=== PATIENT | female | born 1950 | race Hispanic/Latino ===

== ENCOUNTER 2016-04-20 08:42 | Outpatient (CLI) | payer BC ==
--- NOTE | 2016-04-20 14:48 | Magnetic Resonance Report ---
MRI OF THE BRAIN WITHOUT CONTRAST: HISTORY: Malignant neoplasm breast PROCEDURE: Multiplanar, multisequence MR imaging of the brain without IV contrast was performed. Please note the patient did not receive IV gadolinium secondary to a GFR of 28. FINDINGS: Mild nonspecific chronic white matter changes are identified and appear stable since 06/09/15 exam. No evidence for acute ischemia, hemorrhage or mass. No extra axial fluid collection. 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 No large chronic infarct. The midline structures are central. The basal cisterns are patent. Normal ventricular size. The orbital cavities and sella turcica demonstrate no abnormality. The visualized paranasal sinuses and mastoid air cells are well aerated. IMPRESSION: Mild nonspecific chronic white matter changes which appear stable since 06/09/15. Please note this exam is slightly limited without IV gadolinium due to poor renal function. Detection of metastatic disease is limited. Having said that, there is a low suspicion for metastatic disease to the brain on this noncontrast exam.
--- NOTE | 2016-04-23 12:39 | Cat Scan Report ---
CT CHEST, ABDOMEN, PELVIS WITH CONTRAST: HISTORY: Breast cancer. Transverse images are obtained with coronal and sagittal reformatted images. Comparison is made to prior chest CT in January 2015. There is an Lxyaeq-S-Tbqi present. There is marked skin thickening and subcutaneous thickening of the right breast with a central mass. There is focal thickening in the right axilla adjacent to surgical clips. There is asymmetric thickening of the right pectoralis major muscle. There is significant calcification of the coronary vasculature. There is a pulmonary focal scar configuration on the right. There is no hilar or mediastinal adenopathy. No pulmonary nodules and no pleural changes. Compared to 2015 the apical scar was not present and the right breast changes, the pectoralis muscle and axilla are new. Sections carried through the abdomen and pelvis demonstrate an apical cyst in the right kidney. The gallbladder has been removed. The abdominal and retroperitoneal structures are otherwise unremarkable. The partially opacified bowel and mesentery appear normal. No lytic or blastic lesions identified in the bony structures. Significant degenerative changes are identified in the lower 2 vertebrae and discs of the lumbar spine. IMPRESSIONS: 1. Interval findings of the right breast, chest wall and axilla most likely all relate to the patient's various therapies. I have no post-treatment exams for comparison. 2. No findings to indicate metastatic disease to the chest, abdomen or pelvis. 3. Unexplained right apical pulmonary scar. This should be followed with CT scan in 4-6 months. 4. Degenerative lumbar spine changes.
== END 2016-04-20 08:43 | disposition home or self-care (01) ==
LOC: SPVIMAG 08:42
PROVIDERS: ATTEND Internal Medicine Hematology & Oncology
DX: C50.919 Malignant neoplasm of unspecified site of unspecified female breast (principal); M47.896 Other spondylosis, lumbar region; Z90.49 Acquired absence of other specified parts of digestive tract
CPT/HCPCS: 70551; 71260; 74177; Q9967

== ENCOUNTER 2016-07-26 10:12 | Outpatient (CLI) | payer BC ==
--- NOTE | 2016-07-26 12:11 | Mammography Report ---
BONE DEXA:07/26/16 10:12:00 CLINICAL: Postmenopausal. No comparison. TECHNIQUE: Two site bone DEXA performed on an Hologic scanner. FINDINGS: The average BMD of the lumbar spine L1-L4 is 1.116g/cm squared with a T-score of +0.6 and a Z-score of +2.3. The average BMD of the left hip is 1.064g/cm squared with a T-score of +1.0 and a Z-score of +2.2. IMPRESSION: WHO classification: Normal with average fracture risk based on spine and left hip measurements. RECOMMENDATION: Clinical correlation and routine screening. DEFINITIONS: BMD = Bone Mineral Density T-score = BMD related to mean peak bone mass of young adult (mean expressed in Standard Deviation) Z-score = Age matched BMD expressed in SD World Health Organization (WHO) Diagnostic Criteria Normal T-score > -1 SD Osteopenia T-score between -1 and -2.4 SD Osteoporosis T-score -2.5 SD or below NOTE: BMD is not the only risk factor for fracture. One should also consider factors such as the patient's age, risk of falling, previous osteoporotic fracture, family history of osteoporotic fractures, current smoker, and low body weight. Z-scores are not calculated if >80 years of age.
== END 2016-07-26 10:13 | disposition home or self-care (01) ==
LOC: SPVWC 10:12
PROVIDERS: ATTEND Internal Medicine Hematology & Oncology
DX: M89.9 Disorder of bone, unspecified (principal); Z78.0 Asymptomatic menopausal state
CPT/HCPCS: 77080

== ENCOUNTER 2017-08-05 07:33 | Day surgery (SDC) | payer BC ==
[2017-08-05] MEDS ORDERED: SUBLIMAZE IV NR (08:36)
[2017-08-05] MEDS ORDERED: VERSED IV NR (08:36)
[2017-08-05 08:44] LABS: Basophils # (Auto) 0.1 K/mm3 (0.0-0.1); Basophils % (Auto) 0.9 % (0.0-1.8); Eosinophils # (Auto) 0.5 K/mm3 (0.0-0.4); Eosinophils % (Auto) 6.3 % (0.0-4.3); Hematocrit 27.6 % (30.3-42.9); Hemoglobin 9.2 gm/dl (10.1-14.3); Lymphocytes # (Auto) 2.5 K/mm3 (1.2-5.4); Lymphocytes % (Auto) 32.4 % (13.4-35.0); Mean Corpuscular HGB Conc 33 % (30-34); Mean Corpuscular Hemoglobin 36 pg (28-32); Mean Corpuscular Volume 109 fl (79-97); Monocytes # (Auto) 0.6 K/mm3 (0.0-0.8); Monocytes % (Auto) 8.2 % (0.0-7.3); Platelet Count 119 K/mm3 (140-440); Red Blood Count 2.54 M/mm3 (3.65-5.03)
[2017-08-05 09:15] LABS: INR 1.09 (0.87-1.13)
[2017-08-05 09:16] LABS: Partial Thromboplastin Time 48.5 Sec. (24.2-36.6)
[2017-08-05] MEDS ORDERED: NACL 0.9% 500 ML 0 ML ONE (09:20)
[2017-08-05] MEDS ORDERED: FLUSH HEPARIN IV ONE (12:05)
[2017-08-05] MEDS ORDERED: NORCO 5/325 PO ONE (12:18)
[2017-08-05 13:09] VITALS: BP 129/71
--- NOTE | 2017-08-05 14:47 | Cat Scan Report ---
CT BIOPSY BONE MARROW: HISTORY: Pancytopenia, breast cancer. DESCRIPTION OF PROCEDURE: Informed consent was obtained. Sterile technique was utilized. Conscious sedation was accomplished with Versed and fentanyl. The patient was sedated for 15 minutes. Independent cardiorespiratory monitoring by RN. Intra-observer time of [address] guidance, an introducer needle was advanced into the right posterior iliac bone. 4 aspirations and one 11-gauge bone core was obtained. Pathology was present to handle the sample. The patient tolerated the procedure without difficulty. IMPRESSION: Successful CT-guided bone marrow biopsy.
== END 2017-08-05 13:25 | disposition home or self-care (01) ==
LOC: CATHLABREC 07:33 → EDSTATUS 08:30 → CATHLABREC 13:25
PROVIDERS: ATTEND Internal Medicine Hematology & Oncology
DX: C91.10 Chronic lymphocytic leukemia of B-cell type not having achieved remission (principal); Z79.01 Long term (current) use of anticoagulants; Z79.899 Other long term (current) drug therapy
CPT/HCPCS: 36415; 38222; 82962; 85025; 85097; 85610; 85730; 88184; 88185; 88230; 88291; 88305; J1642; J2250; J3010; 38220; 85007; 88161; 88311; 88313; J7040

== ENCOUNTER 2017-08-31 11:07 | Inpatient (IN) | payer BC ==
[2017-08-31 12:58] LABS: Hematocrit 34.5 % (30.3-42.9); Hemoglobin 11.6 gm/dl (10.1-14.3); Mean Corpuscular HGB Conc 34 % (30-34); Mean Corpuscular Hemoglobin 36 pg (28-32); Mean Corpuscular Volume 106 fl (79-97); Red Blood Count 3.24 M/mm3 (3.65-5.03); Red Cell Distribution Width 17.2 % (13.2-15.2)
[2017-08-31 12:59] LABS: Platelet Count 81 K/mm3 (140-440)
[2017-08-31 13:27] LABS: Albumin 3.9 g/dL (3.9-5); Calcium 9.5 mg/dL (8.4-10.2)
[2017-08-31 13:48] LABS: Basophils % (Manual) 0 % (0.0-1.8); Myelocytes # (Manual) 0.1 K/mm3; Total Cells Counted 100
[2017-08-31 13:49] LABS: Platelet Estimate Appears Decreased
[2017-08-31 14:23] LABS: INR 1.05 (0.87-1.13)
[2017-08-31 14:24] LABS: Partial Thromboplastin Time 49.7 Sec. (24.2-36.6)
--- NOTE | 2017-08-31 14:43 | Emergency Department Report ---
ED General Adult HPI - General Chief complaint: Altered Mental Status Stated complaint: PORT REMOVAL Time Seen by Provider: 08/31/17 13:46 Source: patient Mode of arrival: Wheelchair Limitations: No Limitations - History of Present Illness Initial comments: This is a 66 year old female that has a previous history of breast cancer. She is an insulin-dependent diabetic/type II. She was recently seen at [facility]. She is said to have a history of leukemia. She had a spinal tap yesterday and was given intrathecal chemotherapy. She stated that after she went home and even on the ride home she developed nausea and vomiting. She states she vomited about 7 times since the chemotherapy. This morning at approximately 9 AM the patient was "talking out of her head". At this point, she is giving a detailed history of her oncological problems. She seems to have much better recollection of events that her who is here with her. She is currently coherent and certainly not altered. She is not complaining of headache. She denies neck pain and back.. She denies fever or chills. The patient states that her port access which appears to be a 2 port John needle set up was an invertedly left in. She and her called [facility] today. Her stated that she was told to go to "the nearest emergency department". I do not think they discuss the episode of confusion at 9 AM this morning. -: Gradual, minutes(s) - Related Data Home Medications Medication Instructions Recorded Confirmed Last Taken Allopurinol [Zyloprim] 300 mg PO QDAY 12/16/14 08/05/17 08/04/17 300 Anastrozole (Nf) [Arimidex (Nf)] 1 mg PO QHS 12/16/14 08/05/17 08/04/17 Aspirin EC [Aspirin Enteric Coated 81 mg PO QDAY 12/16/14 08/05/17 08/04/17 TAB] 81 AtorvaSTATin [Lipitor] 40 mg PO QPM 12/16/14 08/05/17 08/04/17 Glimepiride [Amaryl] 4 mg PO QAM 12/16/14 03/06/15 08/05/17 09:01 4 Insulin Lispro Prot/Lispro 20 unit SQ BID 12/16/14 08/05/17 08/04/17 [HumaLOG Mix 75/25 Vial] 20 Metoprolol Xl [Metoprolol 50 mg PO BID 12/16/14 08/05/17 08/04/17 SUCCINATE ER TAB] 50 Oxybutynin Chloride [Oxybutynin 10 mg PO QDAY 12/16/14 08/05/17 08/04/17 Chloride ER] Pantoprazole [Protonix TAB] 40 mg PO QDAY PRN 12/16/14 08/05/17 08/01/17 Allergies Allergy/AdvReac Type Severity Reaction Status Date / Time No Known Allergies Allergy Verified 02/14/15 14:01 ED Review of Systems ROS: Stated complaint: PORT REMOVAL Other details as noted in HPI Constitutional: denies: chills, fever Eyes: denies: eye pain, eye discharge, vision change ENT: denies: ear pain, throat pain Respiratory: denies: cough, shortness of breath, wheezing Cardiovascular: denies: chest pain, palpitations Endocrine: no symptoms reported Gastrointestinal: denies: abdominal pain, nausea, diarrhea Genitourinary: denies: urgency, dysuria, discharge Musculoskeletal: denies: back pain, joint swelling, arthralgia Skin: denies: rash, lesions Neurological: other (transient alteration of consciousness). denies: headache, weakness, paresthesias Psychiatric: denies: anxiety, depression Hematological/Lymphatic: denies: easy bleeding, easy bruising ED Past Medical Hx - Past Medical History Hx Hypertension: Yes Hx CVA: Yes Hx Heart Attack/AMI: No Hx Diabetes: Yes Hx GERD: Yes Hx Renal Disease: Yes (CKD STAGE 3) Hx Arthritis: Yes Hx Asthma: Yes (LAST ATTACK AT 24YRS OLD) Additional medical history: breast cancer - Surgical History Hx Cholecystectomy: Yes (2004) Hx Breast Surgery: Yes (ELIOT EXCISION OF CYST, RT BREAST Bx 09/2014, PART MAST. ) - Social History Smoking Status: Never Smoker Substance Use Type: None - Medications Home Medications: Home Medications Medication Instructions Recorded Confirmed Last Taken Type Allopurinol [Zyloprim] 300 mg PO QDAY 12/16/14 08/05/17 08/04/17 History 300 Anastrozole (Nf) [Arimidex (Nf)] 1 mg PO QHS 12/16/14 08/05/17 08/04/17 History Aspirin EC [Aspirin Enteric Coated 81 mg PO QDAY 12/16/14 08/05/17 08/04/17 History TAB] 81 AtorvaSTATin [Lipitor] 40 mg PO QPM 12/16/14 08/05/17 08/04/17 History Glimepiride [Amaryl] 4 mg PO QAM 12/16/14 03/06/15 08/05/17 09:01 History 4 Insulin Lispro Prot/Lispro 20 unit SQ BID 12/16/14 08/05/17 08/04/17 History [HumaLOG Mix 75/25 Vial] 20 Metoprolol Xl [Metoprolol 50 mg PO BID 12/16/14 08/05/17 08/04/17 History SUCCINATE ER TAB] 50 Oxybutynin Chloride [Oxybutynin 10 mg PO QDAY 12/16/14 08/05/17 08/04/17 History Chloride ER] Pantoprazole [Protonix TAB] 40 mg PO QDAY PRN 12/16/14 08/05/17 08/01/17 History ED Physical Exam - General Limitations: No Limitations General appearance: alert, in no apparent distress, obese - Head Head exam: Present: atraumatic, normocephalic - Eye Eye exam: Present: normal appearance. Absent: scleral icterus - ENT ENT exam: Present: mucous membranes moist - Neck Neck exam: Present: normal inspection. Absent: tenderness, meningismus - Respiratory Respiratory exam: Present: normal lung sounds bilaterally. Absent: respiratory distress - Cardiovascular Cardiovascular Exam: Present: regular rate, normal rhythm. Absent: systolic murmur, diastolic murmur, rubs, gallop - GI/Abdominal GI/Abdominal exam: Present: soft, normal bowel sounds. Absent: distended, tenderness, guarding, rebound, rigid - Extremities Exam Extremities exam: Present: normal inspection, normal capillary refill. Absent: tenderness, calf tenderness - Back Exam Back exam: Present: normal inspection. Absent: tenderness, CVA tenderness (R), CVA tenderness (L), paraspinal tenderness, vertebral tenderness - Neurological Exam Neurological exam: Present: alert, oriented X3, CN II-XII intact, other (NIH stroke score is 0). Absent: motor sensory deficit - Psychiatric Psychiatric exam: Present: normal affect, normal mood - Skin Skin exam: Present: warm, dry, intact, normal color. Absent: rash ED Course Vital Signs 08/31/17 08/31/17 08/31/17 11:39 13:30 14:00 Temperature 99.6 F Pulse Rate 76 77 Respiratory 16 13 15 Rate Blood Pressure 136/73 165/91 Blood Pressure 160/92 [Left] O2 Sat by Pulse 93 96 96 Oximetry 08/31/17 08/31/17 08/31/17 15:26 16:00 16:30 Temperature Pulse Rate 81 72 84 Respiratory 12 16 Rate Blood Pressure 174/98 161/81 154/98 Blood Pressure [Left] O2 Sat by Pulse 95 94 Oximetry 08/31/17 08/31/17 08/31/17 17:00 17:30 18:00 Temperature 98.6 F Pulse Rate 75 72 69 Respiratory 11 L 15 18 Rate Blood Pressure 156/103 160/87 155/85 Blood Pressure [Left] O2 Sat by Pulse 95 94 95 Oximetry 08/31/17 18:31 Temperature Pulse Rate 75 Respiratory 18 Rate Blood Pressure 148/88 Blood Pressure [Left] O2 Sat by Pulse 98 Oximetry - Reevaluation(s) Reevaluation #1: The patient had a transient alteration of awareness this a.m. Dr. Ji has now seen and admitted the patient. Prior I spoke to the patient's oncologist at [facility] Dr. Mcgrath. She stated that she is not concerned about the John needle. She agreed with the administration of antibiotics as I selected. We reviewed the elevated lactic acid level. She stated that that may be secondary to the leukemia. She tolerated that patient's last platelet count was 89,000. She suggested that the patient might be able to go home after antibiotics. I do not think that the patient has meningitis or a complication of her spinal injection at least that is completely non-apparent at this juncture. However, with this lactic acid level and a transient alteration of consciousness, I told her that we would admit the patient. Supplementally the patient had high O Danae which I did supplement. She is clinically stable in the emergency department. There is no signs of a stroke syndrome nor complications of spinal tap at this juncture. As above she has very been admitted by Dr. Ji for further care and evaluation. 08/31/17 18:47 08/31/17 18:51 08/31/17 18:58 In addition, the patient is not currently suspected of a stroke syndrome. She is not a candidate for tPA for a plethora of reasons. She will not be given aspirin due to her thrombocytopenia and recent spinal tap. ED Medical Decision Making - Lab Data Result diagrams: 08/31/17 12:46 08/31/17 12:46 Laboratory Results - last 24 hr 08/31/1718 08/31/17 11:46 12:46 12:46 WBC 9.2 RBC 3.24 L Hgb 11.6 Hct 34.5 MCV 106 H MCH 36 H MCHC 34 RDW 17.2 H Plt Count 81 L Add Manual Diff Complete Total Counted 100 Seg Neuts % (Manual) 52.0 Band Neutrophils % 0 Lymphocytes % (Manual) 40.0 H Reactive Lymphs % (Man) 0 Monocytes % (Manual) 1.0 Eosinophils % (Manual) 6.0 H Basophils % (Manual) 0 Metamyelocytes % 0 Myelocytes % 1.0 Promyelocytes % 0 Blast Cells % 0 Nucleated RBC % 1.0 H Seg Neutrophils # Man 4.8 Band Neutrophils # 0.0 Lymphocytes # (Manual) 3.7 Abs React Lymphs (Man) 0.0 Monocytes # (Manual) 0.1 Eosinophils # (Manual) 0.6 H Basophils # (Manual) 0.0 Metamyelocytes # 0.0 Myelocytes # 0.1 Promyelocytes # 0.0 Blast Cells # 0.0 WBC Morphology Not Reportable Hypersegmented Neuts Not Reportable Hyposegmented Neuts Not Reportable Hypogranular Neuts Not Reportable Smudge Cells Not Reportable Toxic Granulation Not Reportable Toxic Vacuolation Not Reportable Dohle Bodies Not Reportable Pelger-Huet Anomaly Not Reportable Tiffany Rods Not Reportable Platelet Estimate Appears decreased Clumped Platelets Not Reportable Plt Clumps, EDTA Not Reportable Large Platelets Not Reportable Giant Platelets Not Reportable Platelet Satelliting Not Reportable Plt Morphology Comment Not Reportable RBC Morphology Not Reportable Dimorphic RBCs Not Reportable Polychromasia Not Reportable Hypochromasia Not Reportable Poikilocytosis Not Reportable Anisocytosis Not Reportable Microcytosis Not Reportable Macrocytosis Not Reportable Spherocytes Not Reportable Pappenheimer Bodies Not Reportable Sickle Cells Not Reportable Target Cells Not Reportable Tear Drop Cells Not Reportable Ovalocytes Not Reportable Helmet Cells Not Reportable [place] Bodies Not Reportable [place] Rings Not Reportable [place] Cells Not Reportable Bite Cells Not Reportable Crenated Cell Not Reportable Elliptocytes Not Reportable Acanthocytes (Spur) Not Reportable Rouleaux Not Reportable Hemoglobin C Crystals Not Reportable Schistocytes Not Reportable Malaria parasites Not Reportable Albert Bodies Not Reportable Hem Pathologist Commnt No PT INR APTT Sodium 143 Potassium 3.8 Chloride 101.2 Carbon Dioxide 24 Anion Gap 22 BUN 30 H Creatinine 1.1 Estimated GFR 50 BUN/Creatinine Ratio 27 Glucose 150 H POC Glucose 146 H Calcium 9.5 Magnesium Total Bilirubin 0.60 AST 37 ALT 17 Alkaline Phosphatase 65 Troponin T NT-Pro-B Natriuret Pep Total Protein 7.0 Albumin 3.9 Albumin/Globulin Ratio 1.3 08/31/17 08/31/17 Unknown Unknown WBC RBC Hgb Hct MCV MCH MCHC RDW Plt Count Add Manual Diff Total Counted Seg Neuts % (Manual) Band Neutrophils % Lymphocytes % (Manual) Reactive Lymphs % (Man) Monocytes % (Manual) Eosinophils % (Manual) Basophils % (Manual) Metamyelocytes % Myelocytes % Promyelocytes % Blast Cells % Nucleated RBC % Seg Neutrophils # Man Band Neutrophils # Lymphocytes # (Manual) Abs React Lymphs (Man) Monocytes # (Manual) Eosinophils # (Manual) Basophils # (Manual) Metamyelocytes # Myelocytes # Promyelocytes # Blast Cells # WBC Morphology Hypersegmented Neuts Hyposegmented Neuts Hypogranular Neuts Smudge Cells Toxic Granulation Toxic Vacuolation Dohle Bodies Pelger-Huet Anomaly Tiffany Rods Platelet Estimate Clumped Platelets Plt Clumps, EDTA Large Platelets Giant Platelets Platelet Satelliting Plt Morphology Comment RBC Morphology Dimorphic RBCs Polychromasia Hypochromasia Poikilocytosis Anisocytosis Microcytosis Macrocytosis Spherocytes Pappenheimer Bodies Sickle Cells Target Cells Tear Drop Cells Ovalocytes Helmet Cells Francis[place] Bodies [place] Rings [place] Cells Bite Cells Crenated Cell Elliptocytes Acanthocytes (Spur) Rouleaux Hemoglobin C Crystals Schistocytes Malaria parasites Albert Bodies Hem Pathologist Commnt PT 14.2 INR 1.05 APTT 49.7 H Sodium Potassium Chloride Carbon Dioxide Anion Gap BUN Creatinine Estimated GFR BUN/Creatinine Ratio Glucose POC Glucose Calcium Magnesium 1.10 L Total Bilirubin AST ALT Alkaline Phosphatase Troponin T < 0.010 NT-Pro-B Natriuret Pep 248.3 Total Protein Albumin Albumin/Globulin Ratio - Radiology Data interpreted by me: Chest x-ray shows the John needle and the port. I see no acute process. Critical care attestation.: If time is entered above; I have spent that time in minutes in the direct care of this critically ill patient, excluding procedure time. ED Disposition Clinical Impression: Transient alteration of awareness, Elevated lactic acid level, Thrombocytopenia , Lumbar puncture within last 24 hours, Hypomagnesemia, Port catheter in place Leukemia Qualifiers: Leukemia type: unspecified Leukemia Active/Remission status: without remission Qualified Code(s): C95.90 - Leukemia, unspecified not having achieved remission Breast cancer Qualifiers: Breast location: unspecified site of breast Laterality: right Qualified Code(s) : C50.911 - Malignant neoplasm of unspecified site of right female breast Disposition: OP ADMIT IP TO THIS HOSP Is pt being admited?: Yes Does the pt Need Aspirin: No (hold secondary to thrombocytopenia) Condition: Stable Referrals: KEVAN NAVARRETE MD [Primary Care Provider] - 3-5 Days
[2017-08-31] MEDS ORDERED: NACL 0.9% 1000 ML 1,000 ML IV ONE (14:54)
[2017-08-31] MEDS ORDERED: VANCOMYCIN PHARMACY TO DOSE IV SCH (15:00)
[2017-08-31] MEDS ORDERED: MAGNESIUM SULFATE 2GM/50ML 2 GM/50 ML BAG IV ONE (15:05)
[2017-08-31] MEDS ORDERED: NORMODYNE IV ONE ×2 (15:18→15:19)
[2017-08-31] MEDS ORDERED: VANCOMYCIN 2,000 MG in NACL 0.9% 500 ML 500 ML IV ONE (15:30)
[2017-08-31] MEDS ORDERED: MAXIPIME 2 GM in NACL 0.9% 20 ML IV ONE (15:30)
[2017-08-31 17:11] LABS: Bacteria,Urine 3+ /HPF (Negative); Bilirubin,Urine NEG (Negative); Blood,Urine MOD (Negative); Color,Urine Yellow (Yellow); Mucus,Urine FEW /HPF; Protein,Urine <15 mg/dL mg/dL (Negative); Urobilinogen,Urine < 2.0 mg/dL (<2.0)
--- NOTE | 2017-08-31 17:30 | History and Physical Report ---
History of Present Illness Chief complaint: she is confused History of present illness: 66 YO Female with Breast Cancer, DM, CVA, OA, Asthma, Leukemia S/P Intrathecal Chemotherapy presents to ED for evaluation. Pt is confused and unable to provide detailed history. Pt history provided by who is at bedside during exam and interview. Pt states that patient has experienced nausea , and multiple episodes of vomiting over the past 3 days, as well as "talking out of her head" which began at 0900 hrs. Pt seen and evaluated in ED and found to have Encephalopathy, SIRS. Pt treated with empiric antibiotics. Oncology service at [facility] notified but decline transfer. Oncology service consulted in ED. Pt admitted to medical floor. Past History Past Medical History: arthritis, cancer, diabetes, GERD, hypertension, hyperlipidemia, stroke Past Surgical History: mastectomy, Other (breast biopsy) Social history: , lives with family Family history: diabetes, hypertension Medications and Allergies Allergies Allergy/AdvReac Type Severity Reaction Status Date / Time No Known Allergies Allergy Verified 02/14/15 14:01 Home Medications Medication Instructions Recorded Confirmed Last Taken Type Allopurinol [Zyloprim] 300 mg PO QDAY 12/16/14 08/31/17 08/04/17 History 300 Anastrozole (Nf) [Arimidex (Nf)] 1 mg PO QHS 12/16/14 08/31/17 08/04/17 History Aspirin EC [Aspirin Enteric Coated 81 mg PO QDAY 12/16/14 08/31/17 08/04/17 History TAB] 81 AtorvaSTATin [Lipitor] 40 mg PO QPM 12/16/14 08/31/17 08/04/17 History Glimepiride [Amaryl] 4 mg PO QAM 12/16/14 08/31/17 08/05/17 09:01 History 4 Insulin Lispro Prot/Lispro 42 unit SQ BID 12/16/14 08/31/17 08/04/17 History [HumaLOG Mix 75/25 Vial] 20 Metoprolol Xl [Metoprolol 50 mg PO BID 12/16/14 08/31/17 08/04/17 History SUCCINATE ER TAB] 50 Oxybutynin Chloride [Oxybutynin 10 mg PO QDAY 12/16/14 08/31/17 08/04/17 History Chloride ER] Pantoprazole [Protonix TAB] 40 mg PO QDAY PRN 12/16/14 08/31/17 08/01/17 History Furosemide [Lasix] 20 mg PO QDAY 08/31/17 08/31/17 Unknown History Montelukast [Singulair] 10 mg PO QPM 08/31/17 08/31/17 Unknown History Valsartan/Hydrochlorothiazide 1 each PO DAILY 08/31/17 08/31/17 Unknown History [Valsartan-Hctz 160-12.5 mg Tab] metFORMIN [Glucophage] 500 mg PO BID 08/31/17 08/31/17 Unknown History Active Meds: Active Medications Vancomycin HCl 2,000 mg/ (Sodium Chloride) 520 mls @ 250 mls/hr IV ONCE ONE Stop: 08/31/17 17:34 Last Admin: 08/31/17 17:16 Dose: 250 mls/hr Vancomycin HCl 1,500 mg/ (Sodium Chloride) 515 mls @ 333.333 mls/hr IV Q12H JEREMÍAS Vancomycin HCl (Vancomycin Pharmacy To Dose) 1 each IV PKCONSULT JEREMÍAS; Protocol Review of Systems Constitutional: weakness, lethargy, no weight loss, no weight gain, no fever, no chills Ears, nose, mouth and throat: no ear pain, no ear discharge, no tinnitis, no decreased hearing, no nose pain, no nasal congestion Breasts: no change in shape, no swelling, no mass Cardiovascular: no chest pain, no orthopnea, no palpitations, no edema, no syncope Respiratory: no cough, no cough with sputum, no excessive sputum, no hemoptysis Gastrointestinal: nausea, vomiting, no abdominal pain, no constipation, no change in bowel habits, no hematemesis Genitourinary Female: no pelvic pain, no flank pain, no dysuria, no urinary frequency, no urgency Rectal: no pain, no incontinence, no bleeding Musculoskeletal: no neck pain, no shooting arm pain, no arm numbness/tingling, no low back pain, no shooting leg pain Integumentary: no rash, no pruritis, no redness, no sores, no wounds Neurological: no paralysis, no weakness, no parathesias, no numbness, no tingling, no seizures Psychiatric: no anxiety, no memory loss, no change in sleep habits, no sleep disturbances, no insomnia, no hypersomnia Endocrine: no cold intolerance, no heat intolerance, no polyphagia, no excessive thirst, no polydipsia, no polyuria Hematologic/Lymphatic: no easy bruising, no easy bleeding, no lymphadenopathy, no lymphedema Allergic/Immunologic: no urticaria, no allergic rhinitis, no wheezing, no persistent infections, no anaphylaxis, no angioedema Exam - Constitutional Vitals: Temp Pulse Resp BP Pulse Ox 99.6 F 84 16 154/98 94 08/31/17 11:39 08/31/17 16:30 08/31/17 16:30 08/31/17 16:30 08/31/17 16:30 General appearance: Present: mild distress, obese - EENT Eyes: Present: PERRL ENT: hearing intact, clear oral mucosa - Neck Neck: Present: supple, normal ROM - Respiratory Respiratory effort: normal Respiratory: bilateral: CTA - Cardiovascular Rhythm: other Heart Sounds: Present: S1 & S2. Absent: rub, click - Extremities Extremities: pulses symmetrical, No edema Peripheral Pulses: within normal limits - Abdominal General gastrointestinal: Present: soft, non-tender, non-distended, normal bowel sounds Female genitourinary: Present: normal - Integumentary Integumentary: Present: clear, warm, dry - Musculoskeletal Musculoskeletal: generalized weakness - Psychiatric Psychiatric: no memory intact, cooperative - Neurologic Neurologic: moves all extremities, no gait normal Results - Labs CBC & Chem 7: 08/31/17 12:46 08/31/17 12:46 Labs: Abnormal lab results 08/31/17 08/31/17 08/31/17 Range/Units 11:46 12:46 12:46 RBC 3.24 L (3.65-5.03) M/mm3 MCV 106 H (79-97) fl MCH 36 H (28-32) pg RDW 17.2 H (13.2-15.2) % Plt Count 81 L (140-440) K/mm3 Lymphocytes % (Manual) 40.0 H (13.4-35.0) % Eosinophils % (Manual) 6.0 H (0.0-4.3) % Nucleated RBC % 1.0 H (0.0-0.9) % Eosinophils # (Manual) 0.6 H (0.0-0.4) K/mm3 APTT (24.2-36.6) Sec. BUN 30 H (7-17) mg/dL Glucose 150 H (65-100) mg/dL POC Glucose 146 H (70-105) Lactic Acid (0.7-2.0) mmol/L Magnesium (1.7-2.3) mg/dL 08/31/17 08/31/17 08/31/17 Range/Units 13:59 Unknown Unknown RBC (3.65-5.03) M/mm3 MCV (79-97) fl MCH (28-32) pg RDW (13.2-15.2) % Plt Count (140-440) K/mm3 Lymphocytes % (Manual) (13.4-35.0) % Eosinophils % (Manual) (0.0-4.3) % Nucleated RBC % (0.0-0.9) % Eosinophils # (Manual) (0.0-0.4) K/mm3 APTT 49.7 H (24.2-36.6) Sec. BUN (7-17) mg/dL Glucose (65-100) mg/dL POC Glucose (70-105) Lactic Acid 4.10 H* (0.7-2.0) mmol/L Magnesium 1.10 L (1.7-2.3) mg/dL Assessment and Plan - Patient Problems (1) SIRS (systemic inflammatory response syndrome) Current Visit: Yes Status: Acute Plan to address problem: Empiric IV antibiotic therapy, Oncology team consulted, CBC, CMP, Chest xray, (2) Encephalopathy Current Visit: Yes Status: Acute Plan to address problem: CT Head, Neuro checks, IVF resuscitation therapy, seizure precautions, (3) Breast cancer Current Visit: Yes Status: Acute Qualifiers: Breast location: unspecified site of breast Laterality: right Qualified Code(s): C50.911 - Malignant neoplasm of unspecified site of right female breast Plan to address problem: Oncology consulted, supportive care, S/P intrathecal chemotherapy, (4) GERD (gastroesophageal reflux disease) Current Visit: Yes Status: Acute Plan to address problem: PPI therapy (5) Hypertension Current Visit: No Status: Chronic Qualifiers: Hypertension type: essential hypertension Qualified Code(s): I10 - Essential (primary) hypertension Plan to address problem: Monitor BP q shift, resume prehospital therapy (6) DVT prophylaxis Current Visit: Yes Status: Acute Plan to address problem: scd to bLE
[2017-08-31] MEDS ORDERED: ZOFRAN IV PRN (18:51)
[2017-08-31] MEDS ORDERED: TYLENOL PO PRN (18:51)
[2017-08-31] MEDS ORDERED: SODIUM CHLORIDE FLUSH SYRINGE 10 ML IV PRN (18:51)
[2017-08-31] MEDS ORDERED: PROVENTIL IH PRN (18:51)
[2017-08-31] MEDS ORDERED: PROTONIX PO PRN (18:53)
[2017-08-31] MEDS ORDERED: NON-FORMULARY (Anastrozole (Nf) 1 MG) PO SCH (22:00)
[2017-08-31] MEDS: NACL 0.45% 1000 ML 1,000 ML IV SCH (22:59)
[2017-08-31] MEDS: TOPROL XL PO SCH (23:00)
[2017-08-31] MEDS: HumaLOG SUB-Q SCH (23:10)
[2017-08-31] MEDS: SODIUM CHLORIDE FLUSH SYRINGE 10 ML IV SCH (23:12)
[2017-09-01] MEDS: VANCOMYCIN 1,500 MG in NACL 0.9% 500 ML 500 ML IV SCH ×2 (04:55→17:14)
[2017-09-01] MEDS: HumaLOG SUB-Q SCH ×2 (09:13→19:05)
[2017-09-01] MEDS: DITROPAN XL PO SCH (09:14)
[2017-09-01] MEDS: ZYLOPRIM PO SCH (09:14)
[2017-09-01] MEDS: HALFPRIN EC PO SCH (09:14)
[2017-09-01] MEDS: TOPROL XL PO SCH ×2 (09:14→22:00)
[2017-09-01] MEDS: SODIUM CHLORIDE FLUSH SYRINGE 10 ML IV SCH ×2 (09:15→22:00)
--- NOTE | 2017-09-01 16:28 | Progress Note ---
Assessment and Plan Assessment and Plan - Patient Problems (1) SIRS (systemic inflammatory response syndrome) Current Visit: Yes Status: Acute Plan to address problem: Empiric IV antibiotic therapy, Oncology team consulted, CBC, CMP, Chest xray, (2) Encephalopathy Current Visit: Yes Status: Acute Plan to address problem: CT Head, Neuro checks, IVF resuscitation therapy, seizure precautions, (3) Breast cancer Current Visit: Yes Status: Acute Qualifiers: Breast location: unspecified site of breast Laterality: right Qualified Code(s): C50.911 - Malignant neoplasm of unspecified site of right female breast Plan to address problem: Oncology consulted, supportive care, S/P intrathecal chemotherapy, (4) GERD (gastroesophageal reflux disease) Current Visit: Yes Status: Acute Plan to address problem: PPI therapy (5) Hypertension Current Visit: No Status: Chronic Qualifiers: Hypertension type: essential hypertension Qualified Code(s): I10 - Essential (primary) hypertension Plan to address problem: Monitor BP q shift, resume prehospital therapy (6) DVT prophylaxis Current Visit: Yes Status: Acute Plan to address problem: scd to bLE Subjective Date of service: 09/01/17 Principal diagnosis: SIRS Interval history: Doing well Objective - Constitutional Vitals: Vital Signs - 12hr 09/01/17 09/01/17 08:07 12:00 Temperature 97.9 F 99.2 F Pulse Rate 75 79 Respiratory 20 20 Rate Blood Pressure 145/82 152/76 O2 Sat by Pulse 93 94 Oximetry General appearance: Present: no acute distress, well-nourished - EENT Eyes: PERRL, EOM intact ENT: hearing intact, clear oral mucosa Ears: bilateral: normal - Neck Neck: supple, normal ROM - Respiratory Respiratory effort: normal Respiratory: bilateral: CTA - Breasts Breasts: deferred, normal - Cardiovascular Rhythm: regular Heart Sounds: Present: S1 & S2. Absent: gallop, rub Extremities: no ischemia, pulses intact, No edema, normal color, Full ROM - Gastrointestinal General gastrointestinal: Present: soft, non-tender, non-distended, normal bowel sounds - Genitourinary Female genitourinary: normal - Integumentary Integumentary: clear, warm, dry - Musculoskeletal Musculoskeletal: 1, strength equal bilaterally - Neurologic Neurologic: moves all extremities - Psychiatric Psychiatric: memory intact, appropriate mood/affect, intact judgment & insight - Labs CBC & Chem 7: 09/02/17 09:27 08/31/17 12:46 Labs: Abnormal lab results 08/31/17 08/31/17 09/01/17 Range/Units 22:07 22:56 05:14 POC Glucose 326 H (70-105) Lactic Acid 5.50 H* 2.50 H* (0.7-2.0) mmol/L 09/01/17 09/01/17 Range/Units 06:09 10:55 POC Glucose 261 H (70-105) Lactic Acid 3.10 H* (0.7-2.0) mmol/L
[2017-09-01] MEDS: NACL 0.45% 1000 ML 1,000 ML IV SCH (19:43)
[2017-09-02] MEDS: VANCOMYCIN 1,500 MG in NACL 0.9% 500 ML 500 ML IV SCH (04:53)
[2017-09-02 09:23] VITALS: BP 151/62
[2017-09-02] MEDS: DITROPAN XL PO SCH (09:24)
[2017-09-02] MEDS: ZYLOPRIM PO SCH (09:24)
[2017-09-02] MEDS: HALFPRIN EC PO SCH (09:25)
[2017-09-02] MEDS: TOPROL XL PO SCH (09:25)
[2017-09-02] MEDS: HumaLOG SUB-Q SCH (09:26)
[2017-09-02] MEDS: SODIUM CHLORIDE FLUSH SYRINGE 10 ML IV SCH (09:26)
--- NOTE | 2017-09-02 09:40 | Hem/Onc Progress Note ---
Assessment and Plan Overall stable. Since cultures are negative, she can be discharged home and I can follow-up in my office. She is due for chemotherapy tomorrow in my office. I have discussed this with Dr. Gold Subjective Date of service: 09/02/17 Interval history: Patient known to me. History of breast cancer. 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 She received her intrathecal chemotherapy last week and presented to the hospital with nausea vomiting and confusion. Seems to be better now. blood cultures are negative. Objective - Constitutional Vitals: Last Vital Signs Temp 97.7 F 09/02/17 08:03 Pulse 68 09/02/17 08:03 Resp 22 09/02/17 08:03 BP 151/62 09/02/17 09:25 Pulse Ox 94 09/02/17 08:03 General appearance: mild distress - Neck Neck: supple - Respiratory Respiratory: bilateral: CTA - Cardiovascular Rhythm: regular Extremities: No edema - Gastrointestinal General gastrointestinal: Present: soft - Labs Lab Results: Laboratory Results - last 24 hr 09/01/17 09/01/17 09/01/17 10:55 11:58 16:02 POC Glucose 253 H 274 H Lactic Acid 3.10 H* 09/01/17 22:09 POC Glucose 249 H Lactic Acid
[2017-09-02] MEDS ORDERED: TRIPLE ANTIBIOTIC TP ONE (10:33)
[2017-09-02] MEDS ORDERED: FLUSH HEPARIN IV ONE (10:33)
[2017-09-02 10:36] LABS: Hematocrit 32.1 % (30.3-42.9); Hemoglobin 10.7 gm/dl (10.1-14.3); Mean Corpuscular HGB Conc 33 % (30-34); Mean Corpuscular Hemoglobin 35 pg (28-32); Mean Corpuscular Volume 106 fl (79-97); Red Blood Count 3.02 M/mm3 (3.65-5.03); Red Cell Distribution Width 16.8 % (13.2-15.2)
[2017-09-02 10:43] LABS: Platelet Count 59 K/mm3 (140-440)
[2017-09-02 11:55] LABS: Anisocytosis 1+; Band Neutrophils # (Manual) 0.4 K/mm3; Macrocytosis 1+; Platelet Estimate Consistent w Auto; Tear Drop Cells Few; Total Cells Counted 100
--- NOTE | 2017-09-02 14:26 | Cat Scan Report ---
FINAL REPORT EXAM: CT HEAD/BRAIN WO CON HISTORY: AMS TECHNIQUE: CT of the Head without IV contrast. PRIORS: MRI brain February 16, 2015. FINDINGS: There is no evidence for acute ischemia. There is no hemorrhage. There is no midline shift. There is no hydrocephalus. There is no mass. Age appropriate gautam-white matter attenuation is noted. There is no calvarial fracture. The temporal bones demonstrate aerated mastoid air cells. The middle ears appear unremarkable. Paranasal sinuses are unremarkable. Globes are intact. IMPRESSION: No acute intracranial studies.
--- NOTE | 2017-09-02 14:27 | XRay Report ---
FINAL REPORT EXAM: XR CHEST 1V AP HISTORY: hypertension TECHNIQUE: Frontal chest x-ray. PRIORS: None currently available. FINDINGS: Hypoaerated lungs accentuate the pulmonary markings and cardiac silhouette. Mild cardiomegaly. Aortic calcifications. There is no effusion. There is no pneumothorax. There is no consolidation. There are no suspicious osseous lesions. Right port catheter tip appears to be present within the right atrium. Right axillary surgical clips identified. IMPRESSION: Mild cardiomegaly. No acute pulmonary findings. Right port catheter tip appears to be present within the right atrium. This could be related to the hypoinflation. Repeat imaging may be helpful if clinically indicated.
--- NOTE | 2017-09-02 15:05 | Discharge Summary ---
Providers - Providers Date of Admission: 08/31/17 18:51 Date of discharge: 09/02/17 Attending physician: TADEO GOLDMAN 08/31/17 15:07 Consult to Physician [CONS] Urgent Comment: Consulting Provider: QUE NAPIER Physician Instructions: Reason For Exam: sepsis? 09/01/17 05:37 Consult to Physician [CONS] Routine Comment: Consulting Provider: TROY KIRBY Physician Instructions: Reason For Exam: lukemia Primary care physician: KEVAN NAVARRETE Hospitalization Condition: Stable Hospital course: Assessment and Plan - Patient Problems (1) SIRS (systemic inflammatory response syndrome) Current Visit: Yes Status: Acute Plan to address problem: Probably reaction to chemotherapy Cultures negative Patient has ALL --and has oncology f/u tomorrow Lactic acid high b/c of persistent vomiting SIRS unlikely (2) Encephalopathy Current Visit: Yes Status: Acute Plan to address problem: Resolved Sec to Intrathecal injection chemotherapy (3) Breast cancer Current Visit: Yes Status: Acute Qualifiers: Breast location: unspecified site of breast Laterality: right Qualified Code(s): C50.911 - Malignant neoplasm of unspecified site of right female breast Plan to address problem: Oncology consulted, supportive care, S/P intrathecal chemotherapy, (4) GERD (gastroesophageal reflux disease) Current Visit: Yes Status: Acute Plan to address problem: PPI therapy (5) Hypertension Current Visit: No Status: Chronic Qualifiers: Hypertension type: essential hypertension Qualified Code(s): I10 - Essential (primary) hypertension Plan to address problem: Monitor BP q shift, resume prehospital therapy (6) DVT prophylaxis Current Visit: Yes Status: Acute Plan to address problem: scd to bLE Disposition: DC-01 TO HOME OR SELFCARE Core Measure Documentation - Palliative Care Palliative Care/ Comfort Measures: Not Applicable - Core Measures Any of the following diagnoses?: none Exam - Constitutional Vitals: Temp Pulse Resp BP Pulse Ox 97.7 F 68 22 151/62 94 09/02/17 08:03 09/02/17 08:03 09/02/17 08:03 09/02/17 09:25 09/02/17 08:03 General appearance: Present: no acute distress, well-nourished - EENT Eyes: Present: PERRL ENT: hearing intact, clear oral mucosa - Neck Neck: Present: supple, normal ROM - Respiratory Respiratory effort: normal Respiratory: bilateral: CTA - Cardiovascular Heart rate: 76 Rhythm: regular Heart Sounds: Present: S1 & S2. Absent: rub, click - Extremities Extremities: no ischemia, pulses intact, pulses symmetrical, No edema Peripheral Pulses: within normal limits - Abdominal General gastrointestinal: Present: soft, non-tender, non-distended, normal bowel sounds Female genitourinary: Present: normal - Rectal Rectal Exam: deferred - Integumentary Integumentary: Present: clear, warm, dry - Musculoskeletal Musculoskeletal: gait normal, strength equal bilaterally - Psychiatric Psychiatric: appropriate mood/affect, intact judgment & insight - Neurologic Neurologic: CNII-XII intact, moves all extremities - Allied Health Allied health notes reviewed: nursing, case management Plan Activity: no restrictions Diet: regular Follow up with: KEVAN NAVARRETE MD [Primary Care Provider] - 3-5 Days TROY KIRBY MD [Staff Physician] - 7 Days
== END 2017-09-02 12:15 | disposition home or self-care (01) | DRG 92 ==
LOC: ED 11:07 → 3A 18:51
PROVIDERS: ADMIT Internal Medicine; ATTEND Internal Medicine
DX: G92 Toxic encephalopathy (principal); R65.10 Systemic inflammatory response syndrome (SIRS) of non-infectious origin without acute organ dysfunction; C95.90 Leukemia, unspecified not having achieved remission; C50.911 Malignant neoplasm of unspecified site of right female breast; K21.9 Gastro-esophageal reflux disease without esophagitis; I12.9 Hypertensive chronic kidney disease with stage 1 through stage 4 chronic kidney disease, or unspecified chronic kidney disease; E11.22 Type 2 diabetes mellitus with diabetic chronic kidney disease; N18.3 Chronic kidney disease, stage 3 (moderate); Z79.82 Long term (current) use of aspirin; Z79.4 Long term (current) use of insulin; Z79.899 Other long term (current) drug therapy; Z86.73 Personal history of transient ischemic attack (TIA), and cerebral infarction without residual deficits; J45.909 Unspecified asthma, uncomplicated; Z90.49 Acquired absence of other specified parts of digestive tract; D69.6 Thrombocytopenia, unspecified; E83.42 Hypomagnesemia; T45.1X5A Adverse effect of antineoplastic and immunosuppressive drugs, initial encounter; Y92.89 Other specified places as the place of occurrence of the external cause; Z83.3 Family history of diabetes mellitus; Z82.49 Family history of ischemic heart disease and other diseases of the circulatory system
CPT/HCPCS: 36415; 70450; 71045; 80053; 81001; 82140; 82962; 83735; 83880; 84484; 85007; 85025; 85610; 85730; 87040; 87086; 93005; 93010; 96365; 96366; 96367; 96375; A6250; A9270-GY; J0692; J1642; J1815; J3370; J3475; J7030; J7040

== ENCOUNTER 2018-04-08 18:17 | Inpatient (IN) | payer MEDICARE ==
[2018-04-08] MEDS ORDERED: NACL 0.9% 1000 ML IV ONE (18:54)
--- NOTE | 2018-04-08 19:01 | Emergency Department Report ---
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 Patient presented to the ER for evaluation of generalized weakness, chills, increased urinary frequency. Patient was recently discharged from the hospital for sepsis most likely from her previous PICC line. Patient stated that she's been coughing also. Patient denied any headache, focal weakness, numbness or tingling sensation. Patient is tachycardic with a blood pressure of 95/57. code Sepsis initiated. - Related Data Home Medications Medication Instructions Recorded Confirmed Last Taken Allopurinol [Zyloprim] 300 mg PO QDAY 12/16/14 03/02/18 03/01/18 Aspirin EC [Aspirin Enteric Coated 81 mg PO QDAY 12/16/14 03/02/18 03/01/18 TAB] AtorvaSTATin [Lipitor] 40 mg PO QPM 12/16/14 03/02/18 03/01/18 Glimepiride [Amaryl] 4 mg PO QAM 12/16/14 03/02/18 03/01/18 Insulin Lispro Prot/Lispro 42 unit SQ BID 12/16/14 03/02/18 03/01/18 [HumaLOG Mix 75/25 Vial] Metoprolol Xl [Metoprolol 50 mg PO BID 12/16/14 03/02/18 03/01/18 SUCCINATE ER TAB] Oxybutynin Chloride [Oxybutynin 10 mg PO QDAY 12/16/14 03/02/18 03/01/18 Chloride ER] Furosemide [Lasix TAB] 20 mg PO QDAY 08/31/17 03/02/18 03/01/18 Montelukast [Singulair] 10 mg PO QPM 08/31/17 03/02/18 03/01/18 Valsartan/Hydrochlorothiazide 1 each PO DAILY 08/31/17 03/02/18 03/01/18 [Valsartan-Hctz 160-12.5 mg Tab] metFORMIN [Glucophage] 500 mg PO BID 08/31/17 03/02/18 03/01/18 Allergies Allergy/AdvReac Type Severity Reaction Status Date / Time No Known Allergies Allergy Verified 02/14/15 14:01 ED Review of Systems ROS: Stated complaint: DR ORDERED INFECTION Other details as noted in HPI Comment: All other systems reviewed and negative Constitutional: chills, fever, malaise, weakness Respiratory: cough, shortness of breath. denies: orthopnea, SOB with exertion, SOB at rest, wheezing Cardiovascular: palpitations. denies: chest pain Gastrointestinal: denies: abdominal pain, nausea, vomiting, diarrhea, constipation, hematemesis, melena, hematochezia Neurological: denies: headache, weakness, numbness, paresthesias, confusion, abnormal gait ED Past Medical Hx - Past Medical History Previous Medical History?: Yes Hx Hypertension: Yes Hx CVA: Yes Hx Heart Attack/AMI: No Hx Diabetes: Yes Hx GERD: Yes Hx Renal Disease: Yes (CKD STAGE 3) Hx of Cancer: Yes (luke) Hx Arthritis: Yes Hx Asthma: Yes (LAST ATTACK AT 24YRS OLD) Additional medical history: breast cancer in remission - Surgical History Past Surgical History?: Yes Hx Cholecystectomy: Yes (2004) Hx Breast Surgery: Yes (ELIOT EXCISION OF CYST, RT BREAST Bx 09/2014, PART MAST. 01/26/15) Additional Surgical History: PICC to left chest - Social History Smoking Status: Never Smoker Substance Use Type: None - Medications Home Medications: Home Medications Medication Instructions Recorded Confirmed Last Taken Type Allopurinol [Zyloprim] 300 mg PO QDAY 12/16/14 03/02/18 03/01/18 History Aspirin EC [Aspirin Enteric Coated 81 mg PO QDAY 12/16/14 03/02/18 03/01/18 History TAB] AtorvaSTATin [Lipitor] 40 mg PO QPM 12/16/14 03/02/18 03/01/18 History Glimepiride [Amaryl] 4 mg PO QAM 12/16/14 03/02/18 03/01/18 History Insulin Lispro Prot/Lispro 42 unit SQ BID 12/16/14 03/02/18 03/01/18 History [HumaLOG Mix 75/25 Vial] Metoprolol Xl [Metoprolol 50 mg PO BID 12/16/14 03/02/18 03/01/18 History SUCCINATE ER TAB] Oxybutynin Chloride [Oxybutynin 10 mg PO QDAY 12/16/14 03/02/18 03/01/18 History Chloride ER] Furosemide [Lasix TAB] 20 mg PO QDAY 08/31/17 03/02/18 03/01/18 History Montelukast [Singulair] 10 mg PO QPM 08/31/17 03/02/18 03/01/18 History Valsartan/Hydrochlorothiazide 1 each PO DAILY 08/31/17 03/02/18 03/01/18 History [Valsartan-Hctz 160-12.5 mg Tab] metFORMIN [Glucophage] 500 mg PO BID 08/31/17 03/02/18 03/01/18 History ED Physical Exam - General Limitations: No Limitations, Physical Limitation General appearance: alert, in no apparent distress - Head Head exam: Present: atraumatic, normocephalic, normal inspection - Eye Eye exam: Present: normal appearance - ENT ENT exam: Present: normal exam, mucous membranes dry - Neck Neck exam: Present: normal inspection, full ROM. Absent: tenderness, meningismus, lymphadenopathy, thyromegaly - Respiratory Respiratory exam: Present: normal lung sounds bilaterally - Cardiovascular Cardiovascular Exam: Present: tachycardia - GI/Abdominal GI/Abdominal exam: Present: soft, normal bowel sounds. Absent: distended, tenderness, guarding, rebound, rigid, organomegaly, mass, bruit, pulsatile mass, hernia - Extremities Exam Extremities exam: Present: normal inspection, full ROM, normal capillary refill. Absent: pedal edema, calf tenderness - Back Exam Back exam: Present: normal inspection, full ROM. Absent: tenderness, CVA tenderness (R), CVA tenderness (L), muscle spasm, paraspinal tenderness, vertebral tenderness, rash noted - Neurological Exam Neurological exam: Present: alert, oriented X3, CN II-XII intact, reflexes normal - Skin Skin exam: Present: warm, dry, intact ED Course Vital Signs 04/08/18 04/08/18 04/08/18 18:24 19:31 20:00 Temperature 98.7 F Pulse Rate 97 H 90 86 Respiratory 20 24 18 Rate Blood Pressure 125/71 100/53 114/66 O2 Sat by Pulse 100 97 98 Oximetry 04/08/18 20:06 Temperature Pulse Rate Respiratory 20 Rate Blood Pressure O2 Sat by Pulse 99 Oximetry - Consultations Consultation #1: 01/08/19 21:24 I discussed the patient is Dr. Colmenares from hematology who is on-call for Dr. Crum. Dr. Colmenares agreed patient needed to be admitted and he stated that he will inform Dr. Crum. ED Medical Decision Making - Lab Data Result diagrams: 04/08/18 18:55 04/08/18 18:55 - Radiology Data Radiology results: report reviewed Referring Physician: FAYE TAPIA Patient Name: RUDI HOLLIS Date of : 1950 Sex: Female Report Date: 2018-04-08 Report Status: Finalized Findings [facility] [address] [place] [address] XRay Report Signed Patient: RUDI HOLLIS MR#: [id number] : 1950 Acct:[id number] Age/Sex: 67 / F ADM Date: 04/08/18 Loc: ED Attending Dr: Ordering Physician: FAYE TAPIA Date of Service: 04/08/18 Procedure(s): XR chest 1V ap Accession Number(s): [id number] cc: FAYE TAPIA Fluoro Time In Minutes: FINAL REPORT EXAM: XR CHEST 1V AP HISTORY: fever,sepsis TECHNIQUE: Chest portable single view PRIORS: Comparison is March 01, 2018 FINDINGS: There is a left subclavian central venous catheter with tip at the SVC. Right chest port seen previously no longer identified. Cardiac and mediastinal contours are unremarkable. No focal pulmonary infiltrate identified. No pleural fluid collection seen. Pulmonary vasculature is unremarkable. 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 Patient presented to the ER for evaluation of generalized weakness, chills, increased urinary frequency. Patient was recently discharged from the hospital for sepsis most likely from her previous PICC line. Patient stated that she's been coughing also. Patient denied any headache, focal weakness, numbness or tingling sensation. Patient is tachycardic with a blood pressure of 95/57. code Sepsis initiated. Patient received normal saline, Zosyn. Lactic acid is 3.7 and creatinine is 2.5 his abuse 57. Chest x-ray is negative for acute finding. Urine is clear also. At this moment there is no source except it might be from the PICC line that placed last admission. I discussed the patient is Dr. Nickie Rubi, she agreed to admit the patient to medical service. Critical Care Time: Yes Critical care time in (mins) excluding proc time.: 30 Critical care attestation.: If time is entered above; I have spent that time in minutes in the direct care of this critically ill patient, excluding procedure time. ED Disposition Clinical Impression: Acute renal failure, Sepsis, Elevated lactic acid level Disposition: OP ADMIT IP TO THIS HOSP Is pt being admited?: Yes Condition: Stable
[2018-04-08 19:20] LABS: Hematocrit 33.2 % (30.3-42.9); Mean Corpuscular HGB Conc 33 % (30-34); Mean Corpuscular Volume 103 fl (79-97); Platelet Count 108 K/mm3 (140-440); Red Blood Count 3.22 M/mm3 (3.65-5.03); Red Cell Distribution Width 16.4 % (13.2-15.2)
[2018-04-08 19:33] LABS: Albumin 3.7 g/dL (3.9-5); Calcium 9.1 mg/dL (8.4-10.2)
[2018-04-08] MEDS ORDERED: ZOSYN/NS 3.375GM/50ML 3.375 GM/50 ML BAG IV ONE (19:56)
[2018-04-08 20:07] LABS: Basophils % (Manual) 0 % (0.0-1.8); Total Cells Counted 100
[2018-04-08 20:08] LABS: Anisocytosis 1+; Platelet Estimate Consistent w Auto; Poikilocytosis 1+
[2018-04-08 20:09] LABS: Tear Drop Cells Few
[2018-04-08] MEDS ORDERED: ZOFRAN IV ONE (20:30)
[2018-04-08] MEDS ORDERED: MORPHINE IM ONE (20:30)
[2018-04-08] MEDS ORDERED: MORPHINE ONE (20:45)
[2018-04-08] MEDS ORDERED: ZOFRAN ONE (20:45)
[2018-04-08 20:51] LABS: Bilirubin,Urine NEG (Negative); Blood,Urine NEG (Negative); Color,Urine Yellow (Yellow); Mucus,Urine FEW /HPF; Protein,Urine <15 mg/dL mg/dL (Negative); Urobilinogen,Urine < 2.0 mg/dL (<2.0)
--- NOTE | 2018-04-08 21:13 | XRay Report ---
FINAL REPORT EXAM: XR CHEST 1V AP HISTORY: fever,sepsis TECHNIQUE: Chest portable single view PRIORS: Comparison is March 01, 2018 FINDINGS: There is a left subclavian central venous catheter with tip at the SVC. Right chest port seen previou sly no longer identified. Cardiac and mediastinal contours are unremarkable. No focal pulmonary infil trate identified. No pleural fluid collection seen. Pulmonary vasculature is unremarkable. IMPRESSION: Left subclavian catheter in satisfactory position No acute findings identified in the chest
[2018-04-08] MEDS ORDERED: VANCOMYCIN/NS 1 GM/250 ML 1 GM/250 ML BAG IV ONE (22:22)
[2018-04-08] MEDS ORDERED: MAXIPIME/NS 1 GM/100 ML 1 GM/100 ML BAG IV SCH ×2 (22:22→23:00)
[2018-04-08] MEDS ORDERED: TYLENOL PO PRN (22:22)
[2018-04-08] MEDS ORDERED: SODIUM CHLORIDE FLUSH SYRINGE 10 ML IV PRN (22:22)
[2018-04-08] MEDS ORDERED: ZOFRAN IV PRN (22:22)
--- NOTE | 2018-04-08 22:26 | History and Physical Report ---
History of Present Illness Date of examination: 04/08/18 History of present illness: 67-year-old lady with a history of diabetes, breast cancer, CVA, asthma, leukemia, right arm fracture comes to the emergency room for evaluation. Patient was recently discharged from the hospital one month ago for enterococcus sepsis. Patient stated that since she has been discharged she has been feeling very weak, needed assistance to do her ADLs. She fell at home and fractured the right arm and has been taking pain medications. She is a very little oral intake she was noted to be confused on April 02. Her physician sent her to [facility] where she was given IV fluids. She was noted to have a fever and was discharged home on antibiotics and hydrocodone for pain. Her oncologist centered to the emergency room today for further evaluation of fever In the emergency room she was given IV fluid, Zosyn . Patient also complained that she has been having diarrhea 2 days, 3-4 episodes a day Review of systems Constitutional: no weight loss, chills Ears, eyes, nose, mouth and throat: no nasal congestion, no nasal discharge, no sinus pressure, no vision change, no red eye. Neck: No neck pain or rigidity. Cardiovascular: no chest pain, palpitations Respiratory: no cough, shortness of breath Gastrointestinal: no abdominal pain hematochezia Genitourinary : no frequency , no hematuria Musculoskeletal: no joint swelling or muscle ache Integumentary: no rash, no pruritis Neurological: no parathesias, no numbness, no focal weakness Endocrine: no cold or heat intolerance, no polyuria or polydipsia Hematologic/Lymphatic: no easy bruising, no easy bleeding, no gland swelling Allergic/Immunologic: no urticaria, no angioedema. PAST MEDICAL HISTORY: diabetes, breast cancer, CVA, asthma, leukemia, right arm fracture PAST SURGICAL HISTORY: Mastectomy, cholecystectomy, hysterectomy, port placement SOCIAL HISTORY: No alcohol, no drugs, tobacco FAMILY HISTORY: Hypertension Medications and Allergies Allergies Allergy/AdvReac Type Severity Reaction Status Date / Time No Known Allergies Allergy Verified 02/14/15 14:01 Home Medications Medication Instructions Recorded Confirmed Last Taken Type Allopurinol [Zyloprim] 300 mg PO QDAY 12/16/14 03/02/18 03/01/18 History Aspirin EC [Aspirin Enteric Coated 81 mg PO QDAY 12/16/14 03/02/18 03/01/18 History TAB] AtorvaSTATin [Lipitor] 40 mg PO QPM 12/16/14 03/02/18 03/01/18 History Glimepiride [Amaryl] 4 mg PO QAM 12/16/14 03/02/18 03/01/18 History Insulin Lispro Prot/Lispro 42 unit SQ BID 12/16/14 03/02/18 03/01/18 History [HumaLOG Mix 75/25 Vial] Metoprolol Xl [Metoprolol 50 mg PO BID 12/16/14 03/02/18 03/01/18 History SUCCINATE ER TAB] Oxybutynin Chloride [Oxybutynin 10 mg PO QDAY 12/16/14 03/02/18 03/01/18 History Chloride ER] Furosemide [Lasix TAB] 20 mg PO QDAY 08/31/17 03/02/18 03/01/18 History Montelukast [Singulair] 10 mg PO QPM 08/31/17 03/02/18 03/01/18 History Valsartan/Hydrochlorothiazide 1 each PO DAILY 08/31/17 03/02/18 03/01/18 History [Valsartan-Hctz 160-12.5 mg Tab] metFORMIN [Glucophage] 500 mg PO BID 08/31/17 03/02/18 03/01/18 History Exam - Physical Exam Narrative exam: General Apperance: The patient lying in bed, breathing comfortable HEENT: Normocephalic, atraumatic. Pupils equally round and reactive to light, EOMI, no sclericterus or JVD or thyromegaly or nodule. , no carotid bruit, mucous membranes dry, no exudate or erythema Heart: S1-S2, regular is rhythm Lungs: Clear to auscultation bilaterally, breathing comfortable Abdomen: Positive bowel sounds, soft, nontender, nondistended, no organomegaly Extremities: No edema cyanosis clubbing Skin: no rash, nodule, warm and dry Neuro: cranial nerves 2-12 intact, speech is fluent, motor/sensory intact - Constitutional Vitals: Temp Pulse Resp BP Pulse Ox 98.7 F 86 20 114/66 99 04/08/18 18:24 04/08/18 20:00 04/08/18 20:06 04/08/18 20:00 04/08/18 20:06 Results - Labs CBC & Chem 7: 04/08/18 18:55 04/08/18 18:55 Labs: Abnormal lab results 04/08/18 04/08/18 04/08/18 Range/Units 18:55 18:55 19:50 RBC 3.22 L (3.65-5.03) M/mm3 MCV 103 H (79-97) fl MCH 34 H (28-32) pg RDW 16.4 H (13.2-15.2) % Plt Count 108 L (140-440) K/mm3 Seg Neuts % (Manual) 72.0 H (40.0-70.0) % Monocytes % (Manual) 9.0 H (0.0-7.3) % Monocytes # (Manual) 0.9 H (0.0-0.8) K/mm3 Carbon Dioxide 21 L (22-30) mmol/L BUN 57 H (7-17) mg/dL Creatinine 2.4 H (0.7-1.2) mg/dL Glucose 49 L (65-100) mg/dL Lactic Acid 3.70 H* (0.7-2.0) mmol/L Albumin 3.7 L (3.9-5) g/dL - Imaging and Cardiology EKG: image reviewed Chest x-ray: report reviewed Assessment and Plan Assessment Septic shock Acute renal insufficiency Diarrhea Breast cancer Diabetes History of CVA Asthma History of leukemia Thrombocytopenia Plan Admit to medicine Start IV fluid, start Vanco, cefepime Follow blood cultures, check stool cultures, C. difficile consult oncology Check fingersticks initiate insulin sliding scale DVT prophylaxis
[2018-04-08] MEDS ORDERED: VANCOMYCIN 2,000 MG in NACL 0.9% 500 ML 500 ML IV ONE (23:00)
[2018-04-08] MEDS ORDERED: D50W (25GM) Syringe IV PRN (23:05)
[2018-04-08] MEDS ORDERED: D50W (25GM) Syringe IV ONE (23:34)
[2018-04-09] MEDS: NACL 0.9% 1000 ML 1,000 ML IV SCH (01:52)
[2018-04-09 02:40] LABS: Hematocrit 31.5 % (30.3-42.9); Hemoglobin 10.4 gm/dl (10.1-14.3); Mean Corpuscular HGB Conc 33 % (30-34); Mean Corpuscular Volume 103 fl (79-97); Red Blood Count 3.06 M/mm3 (3.65-5.03); Red Cell Distribution Width 16.4 % (13.2-15.2)
[2018-04-09 02:43] LABS: Platelet Count 94 K/mm3 (140-440)
[2018-04-09 02:57] LABS: Calcium 8.5 mg/dL (8.4-10.2)
[2018-04-09 03:26] LABS: Basophils % (Manual) 0 % (0.0-1.8); Total Cells Counted 100
[2018-04-09 03:27] LABS: Ovalocytes 1+; Platelet Estimate Appears Decreased; Tear Drop Cells 1+
[2018-04-09 03:28] LABS: Crenated RBC 1+; Macrocytosis 1+
[2018-04-09] MEDS: MORPHINE IV PRN ×3 (09:18→21:25)
--- NOTE | 2018-04-09 09:20 | Consultation ---
History of Present Illness - Reason for Consult Consult date: 04/09/18 Bacteremia - History of Present Illness This patient is a 67-year-old female known to ID service, with a histiry of B reast Cancer and Acute lymphocytic leukemia on chemo, diabetes, CVA, asthma, previously admitted to [facility] on 03/01/2018 for Sepsis, etiology Enterococcus faecalis bacteremia, source was a Port-A-Cath infection, S/p port removal 03/04. She was discharged on 03/07/18 on OPAT, Ampicillian 12 gms continuos infusion for a total of 2 weeks until 03/18/2018. She sustained a fall on and also complained of chills at the chemo/oncologist office on 04/03/18, She was sent to [facility] ED and blood cultures were drawn. Cultures were a positive for Enterococcuss faecalis Bacteremia.. She was at that time sent home on antibiotics. She went to she her Oncologist on 04/08/18 for evaluation of fever, and diarrhea for 2 days and was subsequently sent to [facility]. On admission WBC 10.1, Creatinine 2.2,, Lactic Acid 2.3, Temperature 98.7, HR 72, BP 103/52. U/A was negative for UTI, Chest xray showed no consolidation. Blood cultures were drawn and are pending. Review of Systems: General: no fever , chills, nightsweats, unintentional weight change, + change in appetite Cutaneous: no rash, pruritus Head: no headaches or injury Eyes: no changes in vision, eye pain, double vision Ears: no ear pain, ear discharge, ringing or hearing loss Nose: no nose bleeding, stuffiness Mouth & throat: no bleeding gums, no horseness, no dental problems, or swollen glands Neck:: neck tenderness near PICC site Respiratory: no cough, wheezing, sputum, hemoptysis, pleuritic chest pain Cardiovascular: no chest pain, leg edema, cyanosis, PATRICK, orthopnea Musculoskeletal: no decreased joint motion, + genearlized weaknes, Right arm in a sling + fracture Gastrointestinal: no nausea, vomiting, hematemesis, diarrhea, constipation, melena, bright red blood in stools, fecal incontinence, jaundice Genitourinary/Reproductive: no frequent urination, no dysuria, hematuria, incontinence Neurogical: no seizures, no headaches, no weakness, no paresthesias, no loss of speech or vision; no memory loss, no vertigo, no tremors, no numbness Psychiatric: stable mood; no excessive anxiety, sadness or moodiness Medications and Allergies Allergies Allergy/AdvReac Type Severity Reaction Status Date / Time No Known Allergies Allergy Verified 02/14/15 14:01 Home Medications Medication Instructions Recorded Confirmed Last Taken Type Allopurinol [Zyloprim] 300 mg PO QDAY 12/16/14 03/02/18 03/01/18 History Aspirin EC [Aspirin Enteric Coated 81 mg PO QDAY 12/16/14 03/02/18 03/01/18 History TAB] AtorvaSTATin [Lipitor] 40 mg PO QPM 12/16/14 03/02/18 03/01/18 History Glimepiride [Amaryl] 4 mg PO QAM 12/16/14 03/02/18 03/01/18 History Insulin Lispro Prot/Lispro 42 unit SQ BID 12/16/14 03/02/18 03/01/18 History [HumaLOG Mix 75/25 Vial] Metoprolol Xl [Metoprolol 50 mg PO BID 12/16/14 03/02/18 03/01/18 History SUCCINATE ER TAB] Oxybutynin Chloride [Oxybutynin 10 mg PO QDAY 12/16/14 03/02/18 03/01/18 History Chloride ER] Furosemide [Lasix TAB] 20 mg PO QDAY 08/31/17 03/02/18 03/01/18 History Montelukast [Singulair] 10 mg PO QPM 08/31/17 03/02/18 03/01/18 History Valsartan/Hydrochlorothiazide 1 each PO DAILY 08/31/17 03/02/18 03/01/18 History [Valsartan-Hctz 160-12.5 mg Tab] metFORMIN [Glucophage] 500 mg PO BID 08/31/17 03/02/18 03/01/18 History Active Meds: Active Medications Acetaminophen (Tylenol) 650 mg PO Q4H PRN PRN Reason: Pain MILD(1-3)/Fever >100.5/REYNA Dextrose (D50w (25gm) Syringe) 50 ml IV PRN PRN PRN Reason: Hypoglycemia Last Admin: 04/08/18 23:39 Dose: 50 ml Documented by: Sodium Chloride (Nacl 0.9% 1000 Ml) 1,000 mls @ 125 mls/hr IV DIRECT JEREMÍAS Last Admin: 04/09/18 01:52 Dose: 125 mls/hr Documented by: Cefepime HCl (Maxipime/Ns 1 Gm/100 Ml) 1 gm in 100 mls @ 200 mls/hr IV Q24HR@2200 JEREMÍAS; Protocol Last Admin: 04/09/18 01:52 Dose: 200 mls/hr Documented by: Morphine Sulfate (Morphine) 2 mg IV Q4H PRN PRN Reason: Pain, Moderate (4-6) Last Admin: 04/09/18 09:18 Dose: 2 mg Documented by: Ondansetron HCl (Zofran) 4 mg IV Q4H PRN PRN Reason: Nausea And Vomiting Sodium Chloride (Sodium Chloride Flush Syringe 10 Ml) 10 ml IV BID JEREMÍAS Sodium Chloride (Sodium Chloride Flush Syringe 10 Ml) 10 ml IV PRN PRN PRN Reason: LINE FLUSH Physical Examination - Physical Exam Narrative exam: Constitutional: Alert, cooperative. No acute distress Head, Ears, Nose: Normocephalic, atraumatic. External ears, nose normal Eyes: Conjunctivae/corneas clear. No icterus. No ptosis. Neck: Supple, no meningeal signs Oral: dentition good, no thrush Cardiovascular: S1, S2 normal. Respiratory: Good air entry, clear to auscultation bilaterally GI: Soft, non-tender; bowel sounds normal. No peritoneal signs Musculoskeletal: No pedal edema, no cyanosis, Right arm in sling, fracture Skin: No rash or abscess. Hem/Lymphatic: No palpable cervical or supraclavicular nodes. No lymphangitis Psych: Mood ok. Affect normal Neurological: Awake, alert, oriented. Lines: left subclavian catheter - Constitutional Vitals: Vital Signs Temp Pulse Resp BP Pulse Ox 98.2 F 82 15 104/45 97 04/09/18 08:00 04/09/18 08:30 04/09/18 08:30 04/09/18 08:30 04/09/18 08:30 Temperature -Last 24 Hours Temperature 98.2 F Temperature 98.2 F Temperature 98.7 F Results - Labs CBC & Chem 7: 04/09/18 02:30 04/09/18 02:30 Labs: Abnormal lab results 04/08/18 04/08/18 04/08/18 Range/Units 18:55 18:55 19:50 RBC 3.22 L (3.65-5.03) M/mm3 MCV 103 H (79-97) fl MCH 34 H (28-32) pg RDW 16.4 H (13.2-15.2) % Plt Count 108 L (140-440) K/mm3 Seg Neuts % (Manual) 72.0 H (40.0-70.0) % Lymphocytes % (Manual) (13.4-35.0) % Monocytes % (Manual) 9.0 H (0.0-7.3) % Monocytes # (Manual) 0.9 H (0.0-0.8) K/mm3 Carbon Dioxide 21 L (22-30) mmol/L BUN 57 H (7-17) mg/dL Creatinine 2.4 H (0.7-1.2) mg/dL Glucose 49 L (65-100) mg/dL POC Glucose (70-105) Lactic Acid 3.70 H* (0.7-2.0) mmol/L Albumin 3.7 L (3.9-5) g/dL 04/08/18 04/08/18 04/08/18 Range/Units 21:46 22:44 23:32 RBC (3.65-5.03) M/mm3 MCV (79-97) fl MCH (28-32) pg RDW (13.2-15.2) % Plt Count (140-440) K/mm3 Seg Neuts % (Manual) (40.0-70.0) % Lymphocytes % (Manual) (13.4-35.0) % Monocytes % (Manual) (0.0-7.3) % Monocytes # (Manual) (0.0-0.8) K/mm3 Carbon Dioxide (22-30) mmol/L BUN (7-17) mg/dL Creatinine (0.7-1.2) mg/dL Glucose (65-100) mg/dL POC Glucose 41 L (70-105) Lactic Acid 3.00 H* 2.30 H* (0.7-2.0) mmol/L Albumin (3.9-5) g/dL 04/09/18 04/09/18 04/09/18 Range/Units 00:22 02:30 02:30 RBC 3.06 L (3.65-5.03) M/mm3 MCV 103 H (79-97) fl MCH 34 H (28-32) pg RDW 16.4 H (13.2-15.2) % Plt Count 94 L (140-440) K/mm3 Seg Neuts % (Manual) 72.0 H (40.0-70.0) % Lymphocytes % (Manual) 13.0 L (13.4-35.0) % Monocytes % (Manual) 13.0 H (0.0-7.3) % Monocytes # (Manual) 1.2 H (0.0-0.8) K/mm3 Carbon Dioxide 18 L (22-30) mmol/L BUN 58 H (7-17) mg/dL Creatinine 2.2 H (0.7-1.2) mg/dL Glucose (65-100) mg/dL POC Glucose (70-105) Lactic Acid 2.80 H* (0.7-2.0) mmol/L Albumin (3.9-5) g/dL 04/09/18 04/09/18 Range/Units 04:35 06:08 RBC (3.65-5.03) M/mm3 MCV (79-97) fl MCH (28-32) pg RDW (13.2-15.2) % Plt Count (140-440) K/mm3 Seg Neuts % (Manual) (40.0-70.0) % Lymphocytes % (Manual) (13.4-35.0) % Monocytes % (Manual) (0.0-7.3) % Monocytes # (Manual) (0.0-0.8) K/mm3 Carbon Dioxide (22-30) mmol/L BUN (7-17) mg/dL Creatinine (0.7-1.2) mg/dL Glucose (65-100) mg/dL POC Glucose (70-105) Lactic Acid 3.30 H* 3.10 H* (0.7-2.0) mmol/L Albumin (3.9-5) g/dL Assessment and Plan Imaging 04/08/2018 ChestXray: No focal pulmonary infiltrate identified. No pleural fluid collection seen. Cultures: Reviewed from [facility] 04/03/2018 Blood: GPC, Enterococcus faecalis 03/02/2018: Blood Enterococcus faecalis 04/08/2018: Blood;In progress A/P: 67-year old patient with a histiry of Breast Cancer and Acute lymphocytic leukemia on chemo, diabetes, CVA, asthma, previously admitted to [facility] on 03/01/2018 for Sepsis, etiology Enterococcus faecalis bacteremia, discharged on 03/07/18 on OPAT, Ampicillian continuous infusion until 03/18/18. Presented with chills at oncologist office on 04/03/18, sent to [facility] ED, blood cultures were drawn and were positive for Enteroccocus faecalis bacteremia,. 1. Gram Positive Cocci Bacteremia: Blood cultures at [facility] grew Enterococcus faecalis on 04/03/18. Immunocompromised host. No fever, leukocytoisis. U/A negative. Source unclear. +/- PICC line. Currently being treated with Cefepime. 2. Acute Lymphocytic Leukemia: Received her intrathecal chemotherapy 03/27/18. 3. History of Breast CA: 4. Diarrhea- C-diff culture ordered 5. Acute Renal Insufficiency- antibiotics renally adjusted 6. Diabetes - tight glycemic control Plan: F/u blood cultures Order TTE order CRP, ESR Discontinue Cefepime Start Ampicillin 1gm IV q 8 Start Gentamycin, pharmacy to D[facility] M: [id number] O:[phone]
[2018-04-09] MEDS: AMPICILLIN/NS 1 GM/50 ML 1 GM/50 ML BAG IV SCH ×2 (11:28→19:00)
[2018-04-09] MEDS: SODIUM CHLORIDE FLUSH SYRINGE 10 ML IV SCH ×2 (11:29→21:26)
[2018-04-09] MEDS ORDERED: GENTAMICIN IV SCH (12:00)
[2018-04-09] MEDS ORDERED: NACL 0.9% IV SCH (12:00)
--- NOTE | 2018-04-09 16:34 | Progress Note ---
Assessment and Plan Assessment and plan: 67-year-old lady with a history of diabetes, breast cancer, CVA, asthma, leukemia, right arm fracture comes to the emergency room for evaluation. Patient was recently discharged from the hospital one month ago for enterococcus sepsis. Patient stated that since she has been discharged she has been feeling very weak, needed assistance to do her ADLs. She fell at home and fractured the right arm and has been taking pain medications. She is a very little oral intake she was noted to be confused on April 02. Her physician sent her to [facility] where she was given IV fluids. She was noted to have a fever and was discharged home on antibiotics and hydrocodone for pain. she was sent to ER for Fever In the emergency room she was given IV fluid, Zosyn . Patient also complained that she has been having diarrhea 2 days, 3-4 episodes a day PAST MEDICAL HISTORY: diabetes, breast cancer, CVA, asthma, leukemia, right arm fracture hypotension Acute renal insufficiency- due to vasomotor nephropathy Diarrhea Breast cancer Diabetes History of CVA Asthma History of leukemia Thrombocytopenia lactic acidosis fever R arm fracture Plan -ID input appreciated, continue abx cont ivf diarrhea has now resolved, c diff toxin was not sent fup blood cx , ua neg, cxr neg cont ssi -ortho consult, pain mgt History Interval history: Right upper extremity pain is improved Review of systems Constitutional: No fevers, no malaise, no joint pains CVS: No chest pain, no orthopnea, no dyspnea on exertion, no pedal edema GI: No abdominal pain, no diarrhea, no vomiting, no constipation Respiratory: No shortness of breath, no wheezing, no coughing Hospitalist Physical - Physical exam Narrative exam: General.: Appears well, no distress, nontoxic HEENT: Moist mucous membranes, extraocular muscles intact, no lymphadenopathy Neck: supple Cardiac: S1-S2 heard Lungs: clear to auscultation bilaterally Abdomen: soft , nontender, nondistended, bowel sounds positive Extremities: Right upper extremity splinted Skin: no rash or lesions Neurologic: no gross focal deficits Psych: calm, and cooperative - Constitutional Vitals: Temp Pulse Resp BP Pulse Ox 97.8 F 84 38 H 117/68 99 04/09/18 12:00 04/09/18 14:40 04/09/18 14:40 04/09/18 14:40 04/09/18 14:40 Results - Labs CBC & Chem 7: 04/09/18 02:30 04/09/18 02:30 Labs: Laboratory Last Values WBC 9.5 K/mm3 (4.5-11.0) 04/09/18 02:30 RBC 3.06 M/mm3 (3.65-5.03) L 04/09/18 02:30 Hgb 10.4 gm/dl (10.1-14.3) 04/09/18 02:30 Hct 31.5 % (30.3-42.9) 04/09/18 02:30 MCV 103 fl (79-97) H 04/09/18 02:30 MCH 34 pg (28-32) H 04/09/18 02:30 MCHC 33 % (30-34) 04/09/18 02:30 RDW 16.4 % (13.2-15.2) H 04/09/18 02:30 Plt Count 94 K/mm3 (140-440) L 04/09/18 02:30 Add Manual Diff Complete 04/09/18 02:30 Total Counted 100 04/09/18 02:30 Seg Neuts % (Manual) 72.0 % (40.0-70.0) H 04/09/18 02:30 Band Neutrophils % 0 % 04/09/18 02:30 Lymphocytes % (Manual) 13.0 % (13.4-35.0) L 04/09/18 02:30 Reactive Lymphs % (Man) 0 % 04/09/18 02:30 Monocytes % (Manual) 13.0 % (0.0-7.3) H 04/09/18 02:30 Eosinophils % (Manual) 2.0 % (0.0-4.3) 04/09/18 02:30 Basophils % (Manual) 0 % (0.0-1.8) 04/09/18 02:30 Metamyelocytes % 0 % 04/09/18 02:30 Myelocytes % 0 % 04/09/18 02:30 Promyelocytes % 0 % 04/09/18 02:30 Blast Cells % 0 % 04/09/18 02:30 Nucleated RBC % Not Reportable 04/09/18 02:30 Seg Neutrophils # Man 6.8 K/mm3 (1.8-7.7) 04/09/18 02:30 Band Neutrophils # 0.0 K/mm3 04/09/18 02:30 Lymphocytes # (Manual) 1.2 K/mm3 (1.2-5.4) 04/09/18 02:30 Abs React Lymphs (Man) 0.0 K/mm3 04/09/18 02:30 Monocytes # (Manual) 1.2 K/mm3 (0.0-0.8) H 04/09/18 02:30 Eosinophils # (Manual) 0.2 K/mm3 (0.0-0.4) 04/09/18 02:30 Basophils # (Manual) 0.0 K/mm3 (0.0-0.1) 04/09/18 02:30 Metamyelocytes # 0.0 K/mm3 04/09/18 02:30 Myelocytes # 0.0 K/mm3 04/09/18 02:30 Promyelocytes # 0.0 K/mm3 04/09/18 02:30 Blast Cells # 0.0 K/mm3 04/09/18 02:30 WBC Morphology Not Reportable 04/09/18 02:30 Hypersegmented Neuts Not Reportable 04/09/18 02:30 Hyposegmented Neuts Not Reportable 04/09/18 02:30 Hypogranular Neuts Not Reportable 04/09/18 02:30 Smudge Cells Not Reportable 04/09/18 02:30 Toxic Granulation Not Reportable 04/09/18 02:30 Toxic Vacuolation Not Reportable 04/09/18 02:30 Dohle Bodies Not Reportable 04/09/18 02:30 Pelger-Huet Anomaly Not Reportable 04/09/18 02:30 Tiffany Rods Not Reportable 04/09/18 02:30 Platelet Estimate Appears decreased 04/09/18 02:30 Clumped Platelets Not Reportable 04/09/18 02:30 Plt Clumps, EDTA Not Reportable 04/09/18 02:30 Large Platelets Not Reportable 04/09/18 02:30 Giant Platelets Not Reportable 04/09/18 02:30 Platelet Satelliting Not Reportable 04/09/18 02:30 Plt Morphology Comment Not Reportable 04/09/18 02:30 RBC Morphology Not Reportable 04/09/18 02:30 Dimorphic RBCs Not Reportable 04/09/18 02:30 Polychromasia Not Reportable 04/09/18 02:30 Hypochromasia Not Reportable 04/09/18 02:30 Poikilocytosis Not Reportable 04/09/18 02:30 Anisocytosis Not Reportable 04/09/18 02:30 Microcytosis Not Reportable 04/09/18 02:30 Macrocytosis 1+ 04/09/18 02:30 Spherocytes Not Reportable 04/09/18 02:30 Pappenheimer Bodies Not Reportable 04/09/18 02:30 Sickle Cells Not Reportable 04/09/18 02:30 Target Cells Not Reportable 04/09/18 02:30 Tear Drop Cells 1+ 04/09/18 02:30 Ovalocytes 1+ 04/09/18 02:30 Helmet Cells Not Reportable 04/09/18 02:30 Francis-[place] Bodies Not Reportable 04/09/18 02:30 [place] Rings Not Reportable 04/09/18 02:30 [place] Cells Not Reportable 04/09/18 02:30 Bite Cells Not Reportable 04/09/18 02:30 Crenated Cell 1+ 04/09/18 02:30 Elliptocytes Not Reportable 04/09/18 02:30 Acanthocytes (Spur) Not Reportable 04/09/18 02:30 Rouleaux Not Reportable 04/09/18 02:30 Hemoglobin C Crystals Not Reportable 04/09/18 02:30 Schistocytes Not Reportable 04/09/18 02:30 Malaria parasites Not Reportable 04/09/18 02:30 Albert Bodies Not Reportable 04/09/18 02:30 Hem Pathologist Commnt No 04/09/18 02:30 Sodium 143 mmol/L (137-145) 04/09/18 02:30 Potassium 3.9 mmol/L (3.6-5.0) 04/09/18 02:30 Chloride 104.3 mmol/L (98-107) 04/09/18 02:30 Carbon Dioxide 18 mmol/L (22-30) L 04/09/18 02:30 Anion Gap 25 mmol/L 04/09/18 02:30 BUN 58 mg/dL (7-17) H 04/09/18 02:30 Creatinine 2.2 mg/dL (0.7-1.2) H 04/09/18 02:30 Estimated GFR 22 ml/min 04/09/18 02:30 BUN/Creatinine Ratio 26 % 04/09/18 02:30 Glucose 91 mg/dL (65-100) 04/09/18 02:30 POC Glucose 87 (70-105) 04/09/18 11:48 Lactic Acid 1.80 mmol/L (0.7-2.0) 04/09/18 09:28 Calcium 8.5 mg/dL (8.4-10.2) 04/09/18 02:30 Total Bilirubin 0.50 mg/dL (0.1-1.2) 04/08/18 18:55 AST 23 units/L (5-40) 04/08/18 18:55 ALT 16 units/L (7-56) 04/08/18 18:55 Alkaline Phosphatase 75 units/L (35-129) 04/08/18 18:55 C-Reactive Protein 2.90 mg/dL (0.00-1.30) H 04/09/18 10:23 Total Protein 6.4 g/dL (6.3-8.2) 04/08/18 18:55 Albumin 3.7 g/dL (3.9-5) L 04/08/18 18:55 Albumin/Globulin Ratio 1.4 % 04/08/18 18:55 Urine Color Yellow (Yellow) 04/08/18 20:20 Urine Turbidity Clear (Clear) 04/08/18 20:20 Urine pH 5.0 (5.0-7.0) 04/08/18 20:20 Ur Specific [place] 1.013 (1.003-1.030) 04/08/18 20:20 Urine Protein <15 mg/dl mg/dL (Negative) 04/08/18 20:20 Urine Glucose (UA) Neg mg/dL (Negative) 04/08/18 20:20 Urine Ketones Neg mg/dL (Negative) 04/08/18 20:20 Urine Blood Neg (Negative) 04/08/18 20:20 Urine Nitrite Neg (Negative) 04/08/18 20:20 Urine Bilirubin Neg (Negative) 04/08/18 20:20 Urine Urobilinogen < 2.0 mg/dL (<2.0) 04/08/18 20:20 Ur Leukocyte Esterase Neg (Negative) 01/08/19 20:20 Urine WBC (Auto) 1.0 /HPF (0.0-6.0) 04/08/18 20:20 Urine RBC (Auto) 1.0 /HPF (0.0-6.0) 04/08/18 20:20 Urine Mucus Few /HPF 04/08/18 20:20
--- NOTE | 2018-04-09 18:15 | XRay Report ---
FINAL REPORT EXAM: XR HUMERUS 2+V RT HISTORY: r arm pain TECHNIQUE: Right humerus two views PRIORS: None. FINDINGS: There is acute transverse mildly displaced fracture through neck of the humerus. No acute dislocation is identified. Adjacent bony and soft tissue structures are unremarkable. No distal humeral fracture appreciated. IMPRESSION: Acute fracture through the neck of the humerus
[2018-04-10] MEDS: AMPICILLIN/NS 1 GM/50 ML 1 GM/50 ML BAG IV SCH ×4 (03:26→23:55)
[2018-04-10] MEDS: PERCOCET 5/325 PO PRN ×2 (03:26→19:48)
[2018-04-10] MEDS: MORPHINE IV PRN ×3 (06:50→17:11)
--- NOTE | 2018-04-10 08:35 | Progress Note ---
Assessment and Plan Imaging 04/08/2018 ChestXray: No focal pulmonary infiltrate identified. No pleural fluid collection seen. 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 Presented with chills at oncologist office on 04/03/18, sent to [facility] ED, blood cultures were drawn and were positive for Enteroccocus faecalis bacteremia,. 1. Enteroccocus faecalis Bacteremia: Blood cultures at [facility] grew Enterococcus faecalis on 04/03/18. Immunocompromised host. No fever, leuko cytoisis. U/A negative. Source unclear. +/- PICC line - removed. Continue Ampicillian and Gentamicin. 2. Acute Lymphocytic Leukemia: Received her intrathecal chemotherapy 03/27/18. 3. History of Breast CA: 4. Diarrhea- Resolved 5. Acute Renal Insufficiency- antibiotics renally adjusted 6. Diabetes - tight glycemic control Plan: F/u blood cultures F/u TTE If TTE is negative ,will request BRIANA in light of recurrent Entercoccocus Bacteremia Continue Ampicillin 1gm IV q 8 Continue Gentamicin, pharmacy to dose [facility] M: [phone] O:[phone] Subjective Date of service: 04/10/18 Interval history: Pateint seen and examined. Denied SOB, rash or fevers. Stated that she was having acute right arm pain and discomfort. Nurse notes, labs, imaging and reports reviewed, discussed with patient. Objective - Exam Narrative Exam: Constitutional: Alert, cooperative. No acute distress Head, Ears, Nose: Normocephalic, atraumatic. External ears, nose normal Eyes: Conjunctivae/corneas clear. No icterus. No ptosis. Neck: Supple, no meningeal signs Oral: dentition good, no thrush Cardiovascular: S1, S2 normal. Respiratory: Good air entry, clear to auscultation bilaterally GI: Soft, non-tender; bowel sounds normal. No peritoneal signs Musculoskeletal: No pedal edema, no cyanosis, Right arm in sling, fracture Skin: No rash or abscess. Hem/Lymphatic: No palpable cervical or supraclavicular nodes. No lymphangitis Psych: Mood ok. Affect normal Neurological: Awake, alert, oriented. Lines: none - Constitutional Vitals: Vital Signs Temp Pulse Resp BP Pulse Ox 98.1 F 71 20 115/52 97 04/10/18 07:29 04/10/18 07:29 04/10/18 07:29 04/10/18 07:29 04/10/18 07:29 Temperature -Last 24 Hours Temperature 98.1 F Temperature 98.4 F Temperature 97.9 F Temperature 99.5 F Temperature 98.4 F Temperature 97.8 F - Labs CBC & Chem 7: 04/09/18 02:30 04/10/18 09:55 Labs: Abnormal lab results 04/09/18 04/09/18 04/09/18 Range/Units 05:36 10:23 21:37 POC Glucose 136 H 160 H (70-105) C-Reactive Protein 2.90 H (0.00-1.30) mg/dL 04/10/18 Range/Units 07:32 POC Glucose 123 H (70-105) C-Reactive Protein (0.00-1.30) mg/dL
[2018-04-10] MEDS: NACL 0.9% 1000 ML 1,000 ML IV SCH ×2 (10:58→22:13)
[2018-04-10 10:59] LABS: Calcium 8.5 mg/dL (8.4-10.2)
[2018-04-10] MEDS: SODIUM CHLORIDE FLUSH SYRINGE 10 ML IV SCH (10:59)
--- NOTE | 2018-04-10 14:46 | Progress Note ---
Assessment and Plan Assessment and plan: 67-year-old lady with a history of diabetes, breast cancer, CVA, asthma, leukemia, right arm fracture comes to the emergency room for evaluation. Patient was recently discharged from the hospital one month ago for enterococcus sepsis. Patient stated that since she has been discharged she has been feeling very weak, needed assistance to do her ADLs. She fell at home and fractured the right arm and has been taking pain medications. She is a very little oral intake she was noted to be confused on April 02. Her physician sent her to [facility] where she was given IV fluids. She was noted to have a fever and was discharged home on antibiotics and hydrocodone for pain. she was sent to ER for Fever In the emergency room she was given IV fluid, Zosyn . Patient also complained that she has been having diarrhea 2 days, 3-4 episodes a day PAST MEDICAL HISTORY: diabetes, breast cancer, CVA, asthma, leukemia, right arm fracture hypotension Acute renal insufficiency- due to vasomotor nephropathy Diarrhea Breast cancer Diabetes History of CVA Asthma, stable History of leukemia Thrombocytopenia, mild, monitoring lactic acidosis fever R arm fracture Plan -ID input appreciated, continue abx cont ivf diarrhea has now resolved, c diff toxin was not sent fup blood cx , ua neg, cxr neg cont ssi -ortho consult, pain mgt, to OR tomorrow for ORIF of broken R humerus -fup TTE, given hx of bacterima History Interval history: Right upper extremity pain is improved Review of systems Constitutional: No fevers, no malaise, no joint pains CVS: No chest pain, no orthopnea, no dyspnea on exertion, no pedal edema GI: No abdominal pain, no diarrhea, no vomiting, no constipation Respiratory: No shortness of breath, no wheezing, no coughing Hospitalist Physical - Physical exam Narrative exam: General.: Appears well, no distress, nontoxic HEENT: Moist mucous membranes, extraocular muscles intact, no lymphadenopathy Neck: supple Cardiac: S1-S2 heard Lungs: clear to auscultation bilaterally Abdomen: soft , nontender, nondistended, bowel sounds positive Extremities: Right upper extremity splinted Skin: no rash or lesions Neurologic: no gross focal deficits Psych: calm, and cooperative - Constitutional Vitals: Temp Pulse Resp BP Pulse Ox 98.1 F 71 20 115/52 97 04/10/18 07:29 04/10/18 07:29 04/10/18 10:58 04/10/18 07:29 04/10/18 10:00 Results - Labs CBC & Chem 7: 04/09/18 02:30 04/10/18 09:55 Labs: Laboratory Last Values WBC 9.5 K/mm3 (4.5-11.0) 04/09/18 02:30 RBC 3.06 M/mm3 (3.65-5.03) L 04/09/18 02:30 Hgb 10.4 gm/dl (10.1-14.3) 04/09/18 02:30 Hct 31.5 % (30.3-42.9) 04/09/18 02:30 MCV 103 fl (79-97) H 04/09/18 02:30 MCH 34 pg (28-32) H 04/09/18 02:30 MCHC 33 % (30-34) 04/09/18 02:30 RDW 16.4 % (13.2-15.2) H 04/09/18 02:30 Plt Count 94 K/mm3 (140-440) L 04/09/18 02:30 Add Manual Diff Complete 04/09/18 02:30 Total Counted 100 04/09/18 02:30 Seg Neuts % (Manual) 72.0 % (40.0-70.0) H 04/09/18 02:30 Band Neutrophils % 0 % 04/09/18 02:30 Lymphocytes % (Manual) 13.0 % (13.4-35.0) L 04/09/18 02:30 Reactive Lymphs % (Man) 0 % 04/09/18 02:30 Monocytes % (Manual) 13.0 % (0.0-7.3) H 04/09/18 02:30 Eosinophils % (Manual) 2.0 % (0.0-4.3) 04/09/18 02:30 Basophils % (Manual) 0 % (0.0-1.8) 04/09/18 02:30 Metamyelocytes % 0 % 04/09/18 02:30 Myelocytes % 0 % 04/09/18 02:30 Promyelocytes % 0 % 04/09/18 02:30 Blast Cells % 0 % 04/09/18 02:30 Nucleated RBC % Not Reportable 04/09/18 02:30 Seg Neutrophils # Man 6.8 K/mm3 (1.8-7.7) 04/09/18 02:30 Band Neutrophils # 0.0 K/mm3 04/09/18 02:30 Lymphocytes # (Manual) 1.2 K/mm3 (1.2-5.4) 04/09/18 02:30 Abs React Lymphs (Man) 0.0 K/mm3 04/09/18 02:30 Monocytes # (Manual) 1.2 K/mm3 (0.0-0.8) H 04/09/18 02:30 Eosinophils # (Manual) 0.2 K/mm3 (0.0-0.4) 04/09/18 02:30 Basophils # (Manual) 0.0 K/mm3 (0.0-0.1) 04/09/18 02:30 Metamyelocytes # 0.0 K/mm3 04/09/18 02:30 Myelocytes # 0.0 K/mm3 04/09/18 02:30 Promyelocytes # 0.0 K/mm3 04/09/18 02:30 Blast Cells # 0.0 K/mm3 04/09/18 02:30 WBC Morphology Not Reportable 04/09/18 02:30 Hypersegmented Neuts Not Reportable 04/09/18 02:30 Hyposegmented Neuts Not Reportable 04/09/18 02:30 Hypogranular Neuts Not Reportable 04/09/18 02:30 Smudge Cells Not Reportable 04/09/18 02:30 Toxic Granulation Not Reportable 04/09/18 02:30 Toxic Vacuolation Not Reportable 04/09/18 02:30 Dohle Bodies Not Reportable 04/09/18 02:30 Pelger-Huet Anomaly Not Reportable 04/09/18 02:30 Tiffany Rods Not Reportable 04/09/18 02:30 Platelet Estimate Appears decreased 04/09/18 02:30 Clumped Platelets Not Reportable 04/09/18 02:30 Plt Clumps, EDTA Not Reportable 04/09/18 02:30 Large Platelets Not Reportable 04/09/18 02:30 Giant Platelets Not Reportable 04/09/18 02:30 Platelet Satelliting Not Reportable 04/09/18 02:30 Plt Morphology Comment Not Reportable 04/09/18 02:30 RBC Morphology Not Reportable 04/09/18 02:30 Dimorphic RBCs Not Reportable 04/09/18 02:30 Polychromasia Not Reportable 04/09/18 02:30 Hypochromasia Not Reportable 04/09/18 02:30 Poikilocytosis Not Reportable 04/09/18 02:30 Anisocytosis Not Reportable 04/09/18 02:30 Microcytosis Not Reportable 04/09/18 02:30 Macrocytosis 1+ 04/09/18 02:30 Spherocytes Not Reportable 04/09/18 02:30 Pappenheimer Bodies Not Reportable 04/09/18 02:30 Sickle Cells Not Reportable 04/09/18 02:30 Target Cells Not Reportable 04/09/18 02:30 Tear Drop Cells 1+ 04/09/18 02:30 Ovalocytes 1+ 04/09/18 02:30 Helmet Cells Not Reportable 04/09/18 02:30 Francis-[place] Bodies Not Reportable 04/09/18 02:30 [place] Rings Not Reportable 04/09/18 02:30 [place] Cells Not Reportable 04/09/18 02:30 Bite Cells Not Reportable 04/09/18 02:30 Crenated Cell 1+ 04/09/18 02:30 Elliptocytes Not Reportable 04/09/18 02:30 Acanthocytes (Spur) Not Reportable 04/09/18 02:30 Rouleaux Not Reportable 04/09/18 02:30 Hemoglobin C Crystals Not Reportable 04/09/18 02:30 Schistocytes Not Reportable 04/09/18 02:30 Malaria parasites Not Reportable 04/09/18 02:30 Albert Bodies Not Reportable 04/09/18 02:30 Hem Pathologist Commnt No 04/09/18 02:30 Sodium 142 mmol/L (137-145) 04/10/18 09:55 Potassium 4.0 mmol/L (3.6-5.0) 04/10/18 09:55 Chloride 108.4 mmol/L (98-107) H 04/10/18 09:55 Carbon Dioxide 22 mmol/L (22-30) 04/10/18 09:55 Anion Gap 16 mmol/L 04/10/18 09:55 BUN 31 mg/dL (7-17) H 04/10/18 09:55 Creatinine 1.3 mg/dL (0.7-1.2) H 04/10/18 09:55 Estimated GFR 41 ml/min 04/10/18 09:55 BUN/Creatinine Ratio 24 % 04/10/18 09:55 Glucose 130 mg/dL (65-100) H 04/10/18 09:55 POC Glucose 184 (70-105) H 04/10/18 11:35 Lactic Acid 1.80 mmol/L (0.7-2.0) 04/09/18 09:28 Calcium 8.5 mg/dL (8.4-10.2) 04/10/18 09:55 Total Bilirubin 0.50 mg/dL (0.1-1.2) 04/08/18 18:55 AST 23 units/L (5-40) 04/08/18 18:55 ALT 16 units/L (7-56) 04/08/18 18:55 Alkaline Phosphatase 75 units/L (35-129) 04/08/18 18:55 C-Reactive Protein 2.90 mg/dL (0.00-1.30) H 04/09/18 10:23 Total Protein 6.4 g/dL (6.3-8.2) 04/08/18 18:55 Albumin 3.7 g/dL (3.9-5) L 04/08/18 18:55 Albumin/Globulin Ratio 1.4 % 04/08/18 18:55 Urine Color Yellow (Yellow) 04/08/18 20:20 Urine Turbidity Clear (Clear) 04/08/18 20:20 Urine pH 5.0 (5.0-7.0) 04/08/18 20:20 Ur Specific [place] 1.013 (1.003-1.030) 04/08/18 20:20 Urine Protein <15 mg/dl mg/dL (Negative) 04/08/18 20:20 Urine Glucose (UA) Neg mg/dL (Negative) 04/08/18 20:20 Urine Ketones Neg mg/dL (Negative) 04/08/18 20:20 Urine Blood Neg (Negative) 04/08/18 20:20 Urine Nitrite Neg (Negative) 04/08/18 20:20 Urine Bilirubin Neg (Negative) 04/08/18 20:20 Urine Urobilinogen < 2.0 mg/dL (<2.0) 04/08/18 20:20 Ur Leukocyte Esterase Neg (Negative) 04/08/18 20:20 Urine WBC (Auto) 1.0 /HPF (0.0-6.0) 04/08/18 20:20 Urine RBC (Auto) 1.0 /HPF (0.0-6.0) 04/08/18 20:20 Urine Mucus Few /HPF 04/08/18 20:20 Random Gentamicin 0.3 ug/mL (0.0-10.0) 04/10/18 05:59
--- NOTE | 2018-04-10 16:36 | Consultation ---
History of Present Illness - HPI Consult date: 04/10/18 Consult reason: fracture History of present illness: 67 y/o female with c/o right shoulder pain and swelling after fall on 03/31/18, hx of Breast CA, CVA, and leukemia Medications and Allergies Allergies Allergy/AdvReac Type Severity Reaction Status Date / Time No Known Allergies Allergy Verified 02/14/15 14:01 Home Medications Medication Instructions Recorded Confirmed Last Taken Type Allopurinol [Zyloprim] 300 mg PO QDAY 12/16/14 04/10/18 04/07/18 10:00 History Aspirin EC [Aspirin Enteric Coated 81 mg PO QDAY 12/16/14 04/10/18 04/07/18 10:00 History TAB] AtorvaSTATin [Lipitor] 40 mg PO QPM 12/16/14 04/10/18 04/07/18 18:00 History Glimepiride [Amaryl] 4 mg PO QAM 12/16/14 04/10/18 04/07/18 10:00 History Insulin Lispro Prot/Lispro 42 unit SQ BID 12/16/14 04/10/18 03/01/18 History [HumaLOG Mix 75/25 Vial] Metoprolol Xl [Metoprolol 50 mg PO BID 12/16/14 04/10/18 04/07/18 22:00 History SUCCINATE ER TAB] Oxybutynin Chloride [Oxybutynin 10 mg PO QDAY 12/16/14 04/10/18 04/07/18 10:00 History Chloride ER] Furosemide [Lasix TAB] 20 mg PO QDAY 08/31/17 04/10/18 03/01/18 History Montelukast [Singulair] 10 mg PO QPM 08/31/17 04/10/18 03/01/18 History Valsartan/Hydrochlorothiazide 1 each PO DAILY 08/31/17 04/10/18 04/07/18 10:00 History [Valsartan-Hctz 160-12.5 mg Tab] metFORMIN [Glucophage] 500 mg PO BID 08/31/17 04/10/18 04/07/18 22:00 History Active Meds: Active Medications Acetaminophen (Tylenol) 650 mg PO Q4H PRN PRN Reason: Pain MILD(1-3)/Fever >100.5/REYNA Dextrose (D50w (25gm) Syringe) 50 ml IV PRN PRN PRN Reason: Hypoglycemia Last Admin: 04/08/18 23:39 Dose: 50 ml Documented by: Sodium Chloride (Nacl 0.9% 1000 Ml) 1,000 mls @ 125 mls/hr IV DIRECT JEREMÍAS Last Admin: 04/10/18 10:58 Dose: 125 mls/hr Documented by: Ampicillin Sodium (Ampicillin/Ns 1 Gm/50 Ml) 1 gm in 50 mls @ 100 mls/hr IV Q6HR JEREMÍAS; Protocol Gentamicin Sulfate/Sodium Chloride (Garamycin/Ns 100 Mg/100 Ml) 100 mg in 100 mls @ 200 mls/hr IV Q12H JEREMÍAS Morphine Sulfate (Morphine) 2 mg IV Q4H PRN PRN Reason: Pain, Moderate (4-6) Last Admin: 04/10/18 10:58 Dose: 2 mg Documented by: Ondansetron HCl (Zofran) 4 mg IV Q4H PRN PRN Reason: Nausea And Vomiting Oxycodone/Acetaminophen (Percocet 5/325) 1 tab PO Q6H PRN PRN Reason: Pain, Moderate (4-6) Last Admin: 04/10/18 03:26 Dose: 1 tab Documented by: Sodium Chloride (Sodium Chloride Flush Syringe 10 Ml) 10 ml IV BID JEREMÍAS Last Admin: 04/10/18 10:59 Dose: 10 ml Documented by: Sodium Chloride (Sodium Chloride Flush Syringe 10 Ml) 10 ml IV PRN PRN PRN Reason: LINE FLUSH Physical Examination - Physical exam Narrative exam: Right shoulder - moderate swelling, tender at proximal humerus, decreased active ROM, no gross deformity noted, distal n/v intact plain xrays reviewed right proximal humerus and reveal displaced surgical neck fracture Eyes: PERRL ENT: Positive: clear oral mucosa Respiratory effort: normal Respiratory: bilateral: CTA Rhythm: regular Heart Sounds: Positive: S1 & S2 General gastrointestinal: Positive: soft, non-tender, non-distended, normal bowel sounds Integumentary: clear, warm, dry Neurologic: Positive: CNII-XII intact, moves all extremities, gait normal. Negative: focal deficits Assessment and Plan asses - Displaced right proximal humerus fx plan/recommendation - closed reduction insertion intramedullary nail right humerus
[2018-04-10] MEDS: GENTAMICIN/NS 100 MG/100 ML 100 MG/100 ML BAG IV SCH (17:05)
[2018-04-10] MEDS: SINGULAIR PO SCH (17:10)
[2018-04-10] MEDS: GLUCOPHAGE PO SCH (22:13)
[2018-04-11] MEDS: SODIUM CHLORIDE FLUSH SYRINGE 10 ML IV SCH ×3 (00:01→23:14)
[2018-04-11] MEDS: MORPHINE IV PRN ×4 (00:36→15:21)
[2018-04-11] MEDS: GENTAMICIN/NS 100 MG/100 ML 100 MG/100 ML BAG IV SCH ×2 (04:45→17:45)
[2018-04-11] MEDS: NACL 0.9% 1000 ML 1,000 ML IV SCH ×2 (05:55→16:56)
[2018-04-11] MEDS: AMPICILLIN/NS 1 GM/50 ML 1 GM/50 ML BAG IV SCH ×2 (05:56→11:58)
[2018-04-11 06:37] LABS: Calcium 8.4 mg/dL (8.4-10.2)
--- NOTE | 2018-04-11 07:40 | Progress Note ---
Assessment and Plan Assessment and plan: 67-year-old lady with a history of diabetes, breast cancer, CVA, asthma, leukemia, right arm fracture comes to the emergency room for evaluation. Patient was recently discharged from the hospital one month ago for enterococcus sepsis. Patient stated that since she has been discharged she has been feeling very weak, needed assistance to do her ADLs. She fell at home and fractured the right arm and has been taking pain medications. She is a very little oral intake she was noted to be confused on April 02. Her physician sent her to [facility] where she was given IV fluids. She was noted to have a fever and was discharged home on antibiotics and hydrocodone for pain. she was sent to ER for Fever In the emergency room she was given IV fluid, Zosyn . Patient also complained that she has been having diarrhea 2 days, 3-4 episodes a day PAST MEDICAL HISTORY: diabetes, breast cancer, CVA, asthma, leukemia, right arm fracture hypotension Acute renal insufficiency- due to vasomotor nephropathy Diarrhea Breast cancer Diabetes History of CVA Asthma, stable History of leukemia Thrombocytopenia, mild, monitoring lactic acidosis fever R arm fracture Plan -ID input appreciated, continue abx cont ivf diarrhea has now resolved, c diff toxin was not sent fup blood cx , ua neg, cxr neg cont ssi -ortho consult, pain mgt, to OR tomorrow for ORIF of broken R humerus -fup TTE, given hx of bacterima History Interval history: Right upper extremity pain is improved Review of systems Constitutional: No fevers, no malaise, no joint pains CVS: No chest pain, no orthopnea, no dyspnea on exertion, no pedal edema GI: No abdominal pain, no diarrhea, no vomiting, no constipation Respiratory: No shortness of breath, no wheezing, no coughing Hospitalist Physical - Physical exam Narrative exam: General.: Appears well, no distress, nontoxic HEENT: Moist mucous membranes, extraocular muscles intact, no lymphadenopathy Neck: supple Cardiac: S1-S2 heard Lungs: clear to auscultation bilaterally Abdomen: soft , nontender, nondistended, bowel sounds positive Extremities: Right upper extremity splinted Skin: no rash or lesions Neurologic: no gross focal deficits Psych: calm, and cooperative - Constitutional Vitals: Temp Pulse Resp BP Pulse Ox 98 F 102 H 20 145/45 98 04/10/18 21:00 04/11/18 03:19 04/10/18 21:00 04/10/18 21:00 04/11/18 03:19 Results - Labs CBC & Chem 7: 04/09/18 02:30 04/11/18 05:56 Labs: Laboratory Last Values WBC 9.5 K/mm3 (4.5-11.0) 04/09/18 02:30 RBC 3.06 M/mm3 (3.65-5.03) L 04/09/18 02:30 Hgb 10.4 gm/dl (10.1-14.3) 04/09/18 02:30 Hct 31.5 % (30.3-42.9) 04/09/18 02:30 MCV 103 fl (79-97) H 04/09/18 02:30 MCH 34 pg (28-32) H 04/09/18 02:30 MCHC 33 % (30-34) 04/09/18 02:30 RDW 16.4 % (13.2-15.2) H 04/09/18 02:30 Plt Count 94 K/mm3 (140-440) L 04/09/18 02:30 Add Manual Diff Complete 04/09/18 02:30 Total Counted 100 04/09/18 02:30 Seg Neuts % (Manual) 72.0 % (40.0-70.0) H 04/09/18 02:30 Band Neutrophils % 0 % 04/09/18 02:30 Lymphocytes % (Manual) 13.0 % (13.4-35.0) L 04/09/18 02:30 Reactive Lymphs % (Man) 0 % 04/09/18 02:30 Monocytes % (Manual) 13.0 % (0.0-7.3) H 04/09/18 02:30 Eosinophils % (Manual) 2.0 % (0.0-4.3) 04/09/18 02:30 Basophils % (Manual) 0 % (0.0-1.8) 04/09/18 02:30 Metamyelocytes % 0 % 04/09/18 02:30 Myelocytes % 0 % 04/09/18 02:30 Promyelocytes % 0 % 04/09/18 02:30 Blast Cells % 0 % 04/09/18 02:30 Nucleated RBC % Not Reportable 04/09/18 02:30 Seg Neutrophils # Man 6.8 K/mm3 (1.8-7.7) 04/09/18 02:30 Band Neutrophils # 0.0 K/mm3 04/09/18 02:30 Lymphocytes # (Manual) 1.2 K/mm3 (1.2-5.4) 04/09/18 02:30 Abs React Lymphs (Man) 0.0 K/mm3 04/09/18 02:30 Monocytes # (Manual) 1.2 K/mm3 (0.0-0.8) H 04/09/18 02:30 Eosinophils # (Manual) 0.2 K/mm3 (0.0-0.4) 04/09/18 02:30 Basophils # (Manual) 0.0 K/mm3 (0.0-0.1) 04/09/18 02:30 Metamyelocytes # 0.0 K/mm3 04/09/18 02:30 Myelocytes # 0.0 K/mm3 04/09/18 02:30 Promyelocytes # 0.0 K/mm3 04/09/18 02:30 Blast Cells # 0.0 K/mm3 04/09/18 02:30 WBC Morphology Not Reportable 04/09/18 02:30 Hypersegmented Neuts Not Reportable 04/09/18 02:30 Hyposegmented Neuts Not Reportable 04/09/18 02:30 Hypogranular Neuts Not Reportable 04/09/18 02:30 Smudge Cells Not Reportable 04/09/18 02:30 Toxic Granulation Not Reportable 04/09/18 02:30 Toxic Vacuolation Not Reportable 04/09/18 02:30 Dohle Bodies Not Reportable 04/09/18 02:30 Pelger-Huet Anomaly Not Reportable 04/09/18 02:30 Tiffany Rods Not Reportable 04/09/18 02:30 Platelet Estimate Appears decreased 04/09/18 02:30 Clumped Platelets Not Reportable 04/09/18 02:30 Plt Clumps, EDTA Not Reportable 04/09/18 02:30 Large Platelets Not Reportable 04/09/18 02:30 Giant Platelets Not Reportable 04/09/18 02:30 Platelet Satelliting Not Reportable 04/09/18 02:30 Plt Morphology Comment Not Reportable 04/09/18 02:30 RBC Morphology Not Reportable 04/09/18 02:30 Dimorphic RBCs Not Reportable 04/09/18 02:30 Polychromasia Not Reportable 04/09/18 02:30 Hypochromasia Not Reportable 04/09/18 02:30 Poikilocytosis Not Reportable 04/09/18 02:30 Anisocytosis Not Reportable 04/09/18 02:30 Microcytosis Not Reportable 04/09/18 02:30 Macrocytosis 1+ 04/09/18 02:30 Spherocytes Not Reportable 04/09/18 02:30 Pappenheimer Bodies Not Reportable 04/09/18 02:30 Sickle Cells Not Reportable 04/09/18 02:30 Target Cells Not Reportable 04/09/18 02:30 Tear Drop Cells 1+ 04/09/18 02:30 Ovalocytes 1+ 04/09/18 02:30 Helmet Cells Not Reportable 04/09/18 02:30 Francis-[place] Bodies Not Reportable 04/09/18 02:30 [place] Rings Not Reportable 04/09/18 02:30 Pawan Cells Not Reportable 04/09/18 02:30 Bite Cells Not Reportable 04/09/18 02:30 Crenated Cell 1+ 04/09/18 02:30 Elliptocytes Not Reportable 04/09/18 02:30 Acanthocytes (Spur) Not Reportable 04/09/18 02:30 Rouleaux Not Reportable 04/09/18 02:30 Hemoglobin C Crystals Not Reportable 04/09/18 02:30 Schistocytes Not Reportable 04/09/18 02:30 Malaria parasites Not Reportable 04/09/18 02:30 Albert Bodies Not Reportable 04/09/18 02:30 Hem Pathologist Commnt No 04/09/18 02:30 Sodium 141 mmol/L (137-145) 04/11/18 05:56 Potassium 4.5 mmol/L (3.6-5.0) 04/11/18 05:56 Chloride 107.7 mmol/L (98-107) H 04/11/18 05:56 Carbon Dioxide 21 mmol/L (22-30) L 04/11/18 05:56 Anion Gap 17 mmol/L 04/11/18 05:56 BUN 21 mg/dL (7-17) H 04/11/18 05:56 Creatinine 1.1 mg/dL (0.7-1.2) 04/11/18 05:56 Estimated GFR 50 ml/min 04/11/18 05:56 BUN/Creatinine Ratio 19 % 04/11/18 05:56 Glucose 223 mg/dL (65-100) H 04/11/18 05:56 POC Glucose 227 (70-105) H 04/10/18 21:27 Lactic Acid 1.80 mmol/L (0.7-2.0) 04/09/18 09:28 Calcium 8.4 mg/dL (8.4-10.2) 04/11/18 05:56 Total Bilirubin 0.50 mg/dL (0.1-1.2) 04/08/18 18:55 AST 23 units/L (5-40) 04/08/18 18:55 ALT 16 units/L (7-56) 04/08/18 18:55 Alkaline Phosphatase 75 units/L (35-129) 04/08/18 18:55 C-Reactive Protein 2.90 mg/dL (0.00-1.30) H 04/09/18 10:23 Total Protein 6.4 g/dL (6.3-8.2) 04/08/18 18:55 Albumin 3.7 g/dL (3.9-5) L 04/08/18 18:55 Albumin/Globulin Ratio 1.4 % 04/08/18 18:55 Urine Color Yellow (Yellow) 04/08/18 20:20 Urine Turbidity Clear (Clear) 04/08/18 20:20 Urine pH 5.0 (5.0-7.0) 04/08/18 20:20 Ur Specific [place] 1.013 (1.003-1.030) 04/08/18 20:20 Urine Protein <15 mg/dl mg/dL (Negative) 04/08/18 20:20 Urine Glucose (UA) Neg mg/dL (Negative) 04/08/18 20:20 Urine Ketones Neg mg/dL (Negative) 04/08/18 20:20 Urine Blood Neg (Negative) 04/08/18 20:20 Urine Nitrite Neg (Negative) 04/08/18 20:20 Urine Bilirubin Neg (Negative) 04/08/18 20:20 Urine Urobilinogen < 2.0 mg/dL (<2.0) 04/08/18 20:20 Ur Leukocyte Esterase Neg (Negative) 04/08/18 20:20 Urine WBC (Auto) 1.0 /HPF (0.0-6.0) 04/08/18 20:20 Urine RBC (Auto) 1.0 /HPF (0.0-6.0) 04/08/18 20:20 Urine Mucus Few /HPF 04/08/18 20:20 Random Gentamicin 0.3 ug/mL (0.0-10.0) 04/10/18 05:59
--- NOTE | 2018-04-11 08:23 | Progress Note ---
Assessment and Plan Imaging 04/08/2018 ChestXray: No focal pulmonary infiltrate identified. No pleural fluid collection seen. Cultures: Reviewed from 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 Presented with chills at oncologist office on 04/03/18, sent to [facility] ED, blood cultures were drawn and were positive for Enteroccocus faecalis bacteremia,. 1. Enteroccocus faecalis Bacteremia: Blood cultures at [facility] grew Enterococcus faecalis on 04/03/18. Immunocompromised host. No fever, leuk ocytoisis. U/A negative. Source unclear. +/- PICC line - removed. Continue Ampicillian and Gentamicin. -TTE - shows no vegetation 2. Acute Lymphocytic Leukemia: Received her intrathecal chemotherapy 03/27/18. 3. History of Breast CA: 4. Diarrhea- Resolved 5. Acute Renal Insufficiency- resloved 6. Diabetes - tight glycemic control 7. Displaced right proximal humerus fx: closed reduction insertion intramedullary nail right humerus surgery today- Ortho following Plan: F/u blood cultures Change Ampicillin to 2gm IV q q4 BRIANA ordered for recurrent E. faecalis bacteremia Continue Gentamicin, pharmacy to dose Dr. Sampson will be manager contact this weekend, she can be reached at [phone]. Kirsten Solis NP [facility] M: [id number] O:[phone] Subjective Date of service: 04/11/18 Interval history: Pateint seen and examined. Denied SOB, rash or fevers. Surgery today for displaced surgical neck fracture Nurse notes, labs, imaging and reports reviewed. Family at bedside. Objective - Exam Narrative Exam: Constitutional: Alert, cooperative. mild distress Head, Ears, Nose: Normocephalic, atraumatic. External ears, nose normal Eyes: Conjunctivae/corneas clear. No icterus. No ptosis. Neck: Supple, no meningeal signs Oral: dentition good, no thrush Cardiovascular: S1, S2 normal. Respiratory: Good air entry, clear to auscultation bilaterally GI: Soft, non-tender; bowel sounds normal. No peritoneal signs Musculoskeletal: No pedal edema, no cyanosis, Displaced right proximal humerus fx Skin: No rash or abscess. Hem/Lymphatic: No palpable cervical or supraclavicular nodes. No lymphangitis Psych: Mood ok. Affect normal Neurological: Awake, alert, oriented. Lines: none - Constitutional Vitals: Vital Signs Temp Pulse Resp BP Pulse Ox 98.0 F 96 H 20 138/81 94 04/11/18 07:49 04/11/18 07:49 04/11/18 07:49 04/11/18 07:49 04/11/18 07:49 Temperature -Last 24 Hours Temperature 98.0 F Temperature 98 F Temperature 98.3 F Temperature 98.8 F - Labs CBC & Chem 7: 04/09/18 02:30 04/11/18 05:56 Labs: Abnormal lab results 04/10/18 04/10/18 04/10/18 Range/Units 09:55 11:35 17:04 Chloride 108.4 H (98-107) mmol/L Carbon Dioxide (22-30) mmol/L BUN 31 H (7-17) mg/dL Creatinine 1.3 H (0.7-1.2) mg/dL Glucose 130 H (65-100) mg/dL POC Glucose 184 H 207 H (70-105) 04/10/18 04/11/18 04/11/18 Range/Units 21:27 05:56 07:52 Chloride 107.7 H (98-107) mmol/L Carbon Dioxide 21 L (22-30) mmol/L BUN 21 H (7-17) mg/dL Creatinine (0.7-1.2) mg/dL Glucose 223 H (65-100) mg/dL POC Glucose 227 H 189 H (70-105)
[2018-04-11] MEDS ORDERED: ZYLOPRIM PO SCH (10:00)
--- NOTE | 2018-04-11 10:53 | Anesthesia Day of Surgery ---
Anesthesia Day of Surgery - Day of Surgery Patient Examined: Yes Patient H&P Reviewed: Yes Patient is NPO: Yes
--- NOTE | 2018-04-11 15:00 | Anesthesia Consultation ---
Anesthesia Consult and Med Hx Date of service: 04/11/18 - Airway Anesthetic Teeth Evaluation: Poor ROM Head & Neck: Adequate Mental/Hyoid Distance: Adequate Mallampati Class: Class III Intubation Access Assessment: Possibly Difficult - Pulmonary Exam CTA: Yes - Cardiac Exam Cardiac Exam: RRR - Pre-Operative Health Status ASA Pre-Surgery Classification: ASA3 Proposed Anesthetic Plan: General (Asthma, HTN, obese) - Pulmonary Hx Smoking: No Hx Asthma: Yes (LAST ATTACK AT 24YRS OLD) Hx Pneumonia: Yes Hx Sleep Apnea: No - Cardiovascular System Hx Hypertension: Yes Hx Coronary Artery Disease: Yes ([facility] 11/10/14: Non obstructive CAD involving LAD, med mgmt recommended) Hx Heart Attack/AMI: No Hx Heart Murmur: Yes - Central Nervous System CVA: Yes Hx Psychiatric Problems: No - Gastrointestinal Hx Gastroesophageal Reflux Disease: Yes (CONTROLLED) - Endocrine Hx Renal Disease: Yes (CKD STAGE 3) Hx Non-Insulin Dependent Diabetes: No Hx Thyroid Disease: No - Hematic Hx Anemia: Yes - Other Systems Hx Cancer: Yes (Breast CA ) Hx Obesity: Yes
[2018-04-11] MEDS ORDERED: DILAUDID IV PRN (15:02)
[2018-04-11] MEDS ORDERED: ZOFRAN IV PRN (15:02)
[2018-04-11] MEDS: AMPICILLIN/NS 2 GM/100 ML 2 GM/100 ML BAG IV SCH (15:22)
[2018-04-11] MEDS ORDERED: KETALAR ONE (18:55)
[2018-04-11] MEDS ORDERED: AMIDATE IV ONE (18:57)
[2018-04-11] MEDS ORDERED: LACTATED RINGERS 1,000 ML ONE (18:59)
[2018-04-11] MEDS ORDERED: PROAIR IH ONE (20:04)
[2018-04-11] MEDS ORDERED: SUBLIMAZE ONE ×2 (20:08→20:56)
[2018-04-11] MEDS ORDERED: ROBINUL ONE (20:14)
[2018-04-11] MEDS ORDERED: BLOXIVERZ ONE (20:14)
[2018-04-11] MEDS ORDERED: DILAUDID ONE (20:14)
[2018-04-11] MEDS ORDERED: MARCAINE 0.5% INFILTRATI ONE ×2 (20:34→20:48)
--- NOTE | 2018-04-11 20:44 | Procedure Note ---
Date of procedure: 04/11/18 Pre-op diagnosis: displaced right proximal humerus fracture Post-op diagnosis: same Procedure: Closed reduction insertion of intramedullary nail right proximal humerus Procedure The patient was brought to the or on [facility]. Following induction and intu bation by anesthesia the patient was then placed on daily or table in the supine position She was placed in a beach chair position this was followed by routine prep and drape of the right shoulder and arm. Next a timeout procedure was done to identify the patient and the correct operative site following this incision was made along the anterolateral border of the shoulder this was taken down marci ply through skin and subcutaneous deltoid fascia and finally the rotator cuff tendon using C-arm visualization the large awl was used to locate the entry point this was done at the junction slightly medial to the humeral articular surface and the greater tuberosity following penetrating the articular surface a ball guidewire was then inserted down the shaft into the distal femoral canal again AP lateral views were obtained to verify placement next the proximal entry portal was enlarged again using a all this is done followed by insertion of a short intramedullary nail measuring 8 mm in diameter and 125 m and length following this 3 proximal screws were inserted into the humeral head. Usually using the targeting device this was subsequently followed by 2 distal locking screws again using C-arm visualization for placement next the wound was copiously irrigated and was closed in a standard routine fashion the patient tolerated the procedure there were no Occasions she was sent to postanesthesia recovery in stable condition Anesthesia: FABRICIOA Surgeon: ANGELA OSORIO (Jesi Chan, 1[address] court assistant) Estimated blood loss: 50-100ml Pathology: none Condition: stable Disposition: PACU
[2018-04-11] MEDS ORDERED: SODIUM CHLORIDE FLUSH SYRINGE 10 ML IV NR (21:00)
[2018-04-11] MEDS: SINGULAIR PO SCH (22:58)
[2018-04-11] MEDS: GLUCOPHAGE PO SCH (22:58)
[2018-04-11] MEDS: ANCEF/NS 1 GM/50 ML 1 GM/50 ML BAG IV SCH (23:04)
[2018-04-12] MEDS: PERCOCET 5/325 PO PRN (01:20)
[2018-04-12] MEDS: AMPICILLIN/NS 2 GM/100 ML 2 GM/100 ML BAG IV SCH ×8 (01:22→22:10)
[2018-04-12] MEDS: MORPHINE IV PRN ×3 (03:16→19:49)
[2018-04-12] MEDS: GENTAMICIN/NS 100 MG/100 ML 100 MG/100 ML BAG IV SCH ×2 (04:09→16:59)
[2018-04-12] MEDS: ANCEF/NS 1 GM/50 ML 1 GM/50 ML BAG IV SCH (05:05)
[2018-04-12] MEDS: DITROPAN XL PO SCH (09:33)
[2018-04-12] MEDS: GLUCOPHAGE PO SCH ×3 (09:33→22:16)
[2018-04-12] MEDS: HALFPRIN EC PO SCH (09:34)
[2018-04-12] MEDS: SODIUM CHLORIDE FLUSH SYRINGE 10 ML IV SCH ×2 (09:34→22:16)
[2018-04-12] MEDS: ZYLOPRIM PO SCH (09:34)
--- NOTE | 2018-04-12 11:07 | Progress Note ---
Assessment and Plan Assessment and plan: 67-year-old lady with a history of diabetes, breast cancer, CVA, asthma, leukemia, right arm fracture comes to the emergency room for evaluation. Patient was recently discharged from the hospital one month ago for enterococcus sepsis. Patient stated that since she has been discharged she has been feeling very weak, needed assistance to do her ADLs. She fell at home and fractured the right arm and has been taking pain medications. She is a very little oral intake she was noted to be confused on April 02. Her physician sent her to [facility] where she was given IV fluids. She was noted to have a fever and was discharged home on antibiotics and hydrocodone for pain. she was sent to ER for Fever In the emergency room she was given IV fluid, Zosyn . Patient also complained that she has been having diarrhea 2 days, 3-4 episodes a day PAST MEDICAL HISTORY: diabetes, breast cancer, CVA, asthma, leukemia, right arm fracture hypotension Acute renal insufficiency- due to vasomotor nephropathy Diarrhea Breast cancer Diabetes History of CVA Asthma, stable History of leukemia Thrombocytopenia, mild, monitoring lactic acidosis fever R arm fracture Plan -ID input appreciated, continue abx cont ivf diarrhea has now resolved, c diff toxin was not sent blood cx neg , ua neg, cxr neg cont ssi -ortho consult, pain mgt, sp Closed reduction insertion of intramedullary nail right proximal humerus 04/11/17 - TTE neg, given hx of bacteremia, ID wants BRIANA, will dw ID if the procedure has a high yield, as her BC are neg dvt ppx chemical Dispo; I have offered her KATHY, but she is refusing, she would prefer to go home with home services History Interval history: Right upper extremity pain is improved Review of systems Constitutional: No fevers, no malaise, no joint pains CVS: No chest pain, no orthopnea, no dyspnea on exertion, no pedal edema GI: No abdominal pain, no diarrhea, no vomiting, no constipation Respiratory: No shortness of breath, no wheezing, no coughing Hospitalist Physical - Physical exam Narrative exam: General.: Appears well, no distress, nontoxic HEENT: Moist mucous membranes, extraocular muscles intact, no lymphadenopathy Neck: supple Cardiac: S1-S2 heard Lungs: clear to auscultation bilaterally Abdomen: soft , nontender, nondistended, bowel sounds positive Extremities: Right upper extremity splinted Skin: no rash or lesions Neurologic: no gross focal deficits Psych: calm, and cooperative - Constitutional Vitals: Temp Pulse Resp BP Pulse Ox 97.5 F L 114 H 18 133/88 95 04/12/18 03:05 04/12/18 03:05 04/12/18 03:05 04/12/18 03:05 04/12/18 07:56 Results - Labs CBC & Chem 7: 04/09/18 02:30 04/11/18 05:56 Labs: Laboratory Last Values WBC 9.5 K/mm3 (4.5-11.0) 04/09/18 02:30 RBC 3.06 M/mm3 (3.65-5.03) L 04/09/18 02:30 Hgb 10.4 gm/dl (10.1-14.3) 04/09/18 02:30 Hct 31.5 % (30.3-42.9) 04/09/18 02:30 MCV 103 fl (79-97) H 04/09/18 02:30 MCH 34 pg (28-32) H 04/09/18 02:30 MCHC 33 % (30-34) 04/09/18 02:30 RDW 16.4 % (13.2-15.2) H 04/09/18 02:30 Plt Count 94 K/mm3 (140-440) L 04/09/18 02:30 Add Manual Diff Complete 04/09/18 02:30 Total Counted 100 04/09/18 02:30 Seg Neuts % (Manual) 72.0 % (40.0-70.0) H 04/09/18 02:30 Band Neutrophils % 0 % 04/09/18 02:30 Lymphocytes % (Manual) 13.0 % (13.4-35.0) L 04/09/18 02:30 Reactive Lymphs % (Man) 0 % 04/09/18 02:30 Monocytes % (Manual) 13.0 % (0.0-7.3) H 04/09/18 02:30 Eosinophils % (Manual) 2.0 % (0.0-4.3) 04/09/18 02:30 Basophils % (Manual) 0 % (0.0-1.8) 04/09/18 02:30 Metamyelocytes % 0 % 04/09/18 02:30 Myelocytes % 0 % 04/09/18 02:30 Promyelocytes % 0 % 04/09/18 02:30 Blast Cells % 0 % 04/09/18 02:30 Nucleated RBC % Not Reportable 04/09/18 02:30 Seg Neutrophils # Man 6.8 K/mm3 (1.8-7.7) 04/09/18 02:30 Band Neutrophils # 0.0 K/mm3 04/09/18 02:30 Lymphocytes # (Manual) 1.2 K/mm3 (1.2-5.4) 04/09/18 02:30 Abs React Lymphs (Man) 0.0 K/mm3 04/09/18 02:30 Monocytes # (Manual) 1.2 K/mm3 (0.0-0.8) H 04/09/18 02:30 Eosinophils # (Manual) 0.2 K/mm3 (0.0-0.4) 04/09/18 02:30 Basophils # (Manual) 0.0 K/mm3 (0.0-0.1) 04/09/18 02:30 Metamyelocytes # 0.0 K/mm3 04/09/18 02:30 Myelocytes # 0.0 K/mm3 04/09/18 02:30 Promyelocytes # 0.0 K/mm3 04/09/18 02:30 Blast Cells # 0.0 K/mm3 04/09/18 02:30 WBC Morphology Not Reportable 04/09/18 02:30 Hypersegmented Neuts Not Reportable 04/09/18 02:30 Hyposegmented Neuts Not Reportable 04/09/18 02:30 Hypogranular Neuts Not Reportable 04/09/18 02:30 Smudge Cells Not Reportable 04/09/18 02:30 Toxic Granulation Not Reportable 04/09/18 02:30 Toxic Vacuolation Not Reportable 04/09/18 02:30 Dohle Bodies Not Reportable 04/09/18 02:30 Pelger-Huet Anomaly Not Reportable 04/09/18 02:30 Tiffany Rods Not Reportable 04/09/18 02:30 Platelet Estimate Appears decreased 04/09/18 02:30 Clumped Platelets Not Reportable 04/09/18 02:30 Plt Clumps, EDTA Not Reportable 04/09/18 02:30 Large Platelets Not Reportable 04/09/18 02:30 Giant Platelets Not Reportable 04/09/18 02:30 Platelet Satelliting Not Reportable 04/09/18 02:30 Plt Morphology Comment Not Reportable 04/09/18 02:30 RBC Morphology Not Reportable 04/09/18 02:30 Dimorphic RBCs Not Reportable 04/09/18 02:30 Polychromasia Not Reportable 04/09/18 02:30 Hypochromasia Not Reportable 04/09/18 02:30 Poikilocytosis Not Reportable 04/09/18 02:30 Anisocytosis Not Reportable 04/09/18 02:30 Microcytosis Not Reportable 04/09/18 02:30 Macrocytosis 1+ 04/09/18 02:30 Spherocytes Not Reportable 04/09/18 02:30 Pappenheimer Bodies Not Reportable 04/09/18 02:30 Sickle Cells Not Reportable 04/09/18 02:30 Target Cells Not Reportable 04/09/18 02:30 Tear Drop Cells 1+ 04/09/18 02:30 Ovalocytes 1+ 04/09/18 02:30 Helmet Cells Not Reportable 04/09/18 02:30 Francis-[place] Bodies Not Reportable 04/09/18 02:30 [place] Rings Not Reportable 04/09/18 02:30 Pawan Cells Not Reportable 04/09/18 02:30 Bite Cells Not Reportable 04/09/18 02:30 Crenated Cell 1+ 04/09/18 02:30 Elliptocytes Not Reportable 04/09/18 02:30 Acanthocytes (Spur) Not Reportable 04/09/18 02:30 Rouleaux Not Reportable 04/09/18 02:30 Hemoglobin C Crystals Not Reportable 04/09/18 02:30 Schistocytes Not Reportable 04/09/18 02:30 Malaria parasites Not Reportable 04/09/18 02:30 Albert Bodies Not Reportable 04/09/18 02:30 Hem Pathologist Commnt No 04/09/18 02:30 Sodium 141 mmol/L (137-145) 04/11/18 05:56 Potassium 4.5 mmol/L (3.6-5.0) 04/11/18 05:56 Chloride 107.7 mmol/L (98-107) H 04/11/18 05:56 Carbon Dioxide 21 mmol/L (22-30) L 04/11/18 05:56 Anion Gap 17 mmol/L 04/11/18 05:56 BUN 21 mg/dL (7-17) H 04/11/18 05:56 Creatinine 1.1 mg/dL (0.7-1.2) 04/11/18 05:56 Estimated GFR 50 ml/min 04/11/18 05:56 BUN/Creatinine Ratio 19 % 04/11/18 05:56 Glucose 223 mg/dL (65-100) H 04/11/18 05:56 POC Glucose 211 (70-105) H 04/12/18 07:24 Lactic Acid 1.80 mmol/L (0.7-2.0) 04/09/18 09:28 Calcium 8.4 mg/dL (8.4-10.2) 04/11/18 05:56 Total Bilirubin 0.50 mg/dL (0.1-1.2) 04/08/18 18:55 AST 23 units/L (5-40) 04/08/18 18:55 ALT 16 units/L (7-56) 04/08/18 18:55 Alkaline Phosphatase 75 units/L (35-129) 04/08/18 18:55 C-Reactive Protein 2.90 mg/dL (0.00-1.30) H 04/09/18 10:23 Total Protein 6.4 g/dL (6.3-8.2) 04/08/18 18:55 Albumin 3.7 g/dL (3.9-5) L 04/08/18 18:55 Albumin/Globulin Ratio 1.4 % 04/08/18 18:55 Urine Color Yellow (Yellow) 04/08/18 20:20 Urine Turbidity Clear (Clear) 04/08/18 20:20 Urine pH 5.0 (5.0-7.0) 04/08/18 20:20 Ur Specific [place] 1.013 (1.003-1.030) 04/08/18 20:20 Urine Protein <15 mg/dl mg/dL (Negative) 04/08/18 20:20 Urine Glucose (UA) Neg mg/dL (Negative) 04/08/18 20:20 Urine Ketones Neg mg/dL (Negative) 04/08/18 20:20 Urine Blood Neg (Negative) 04/08/18 20:20 Urine Nitrite Neg (Negative) 04/08/18 20:20 Urine Bilirubin Neg (Negative) 04/08/18 20:20 Urine Urobilinogen < 2.0 mg/dL (<2.0) 04/08/18 20:20 Ur Leukocyte Esterase Neg (Negative) 04/08/18 20:20 Urine WBC (Auto) 1.0 /HPF (0.0-6.0) 04/08/18 20:20 Urine RBC (Auto) 1.0 /HPF (0.0-6.0) 04/08/18 20:20 Urine Mucus Few /HPF 04/08/18 20:20 Random Gentamicin 0.3 ug/mL (0.0-10.0) 04/10/18 05:59
[2018-04-12] MEDS: NACL 0.9% 1000 ML 1,000 ML IV SCH (14:15)
[2018-04-12] MEDS: SINGULAIR PO SCH (17:00)
[2018-04-12] MEDS: HumaLOG SUB-Q SCH ×2 (17:01→22:49)
--- NOTE | 2018-04-12 19:32 | Progress Note ---
Assessment and Plan Imaging 04/08/2018 ChestXray: No focal pulmonary infiltrate identified. No pleural fluid collection seen. Cultures: Reviewed from 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 Presented with chills at oncologist office on 04/03/18, sent to [facility] ED, blood cultures were drawn and were positive for Enteroccocus faecalis bacteremia,. 1. Enteroccocus faecalis Bacteremia: Blood cultures at [facility] grew Enterococcus faecalis on 04/03/18. Immunocompromised host. No fever, leukocytoisis. U/A negative. Source unclear. +/- PICC line - removed. Continue Ampicillian and Gentamicin. -TTE - shows no vegetation 2. Acute Lymphocytic Leukemia: Received her intrathecal chemotherapy 03/27/18. 3. History of Breast CA: 4. Diarrhea- Resolved 5. Acute Renal Insufficiency- resloved 6. Diabetes - tight glycemic control 7. 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 Objective - Exam Narrative Exam: Constitutional: Alert, cooperative. mild distress Head, Ears, Nose: Normocephalic, atraumatic. External ears, nose normal Eyes: Conjunctivae/corneas clear. No icterus. No ptosis. Neck: Supple, no meningeal signs Oral: dentition good, no thrush Cardiovascular: S1, S2 normal. Respiratory: Good air entry, clear to auscultation bilaterally GI: Soft, non-tender; bowel sounds normal. No peritoneal signs Musculoskeletal: Displaced right proximal humeral surg wound w dressings Skin: No rash or abscess. Hem/Lymphatic: No palpable cervical or supraclavicular nodes. No lymphangitis Psych: Mood ok. Affect normal Neurological: Awake, alert, oriented. Lines: none - Constitutional Vitals: Vital Signs Temp Pulse Resp BP Pulse Ox 98.9 F 119 H 20 154/93 96 04/12/18 13:04 04/12/18 13:04 04/12/18 14:09 04/12/18 13:04 04/12/18 13:04 Temperature -Last 24 Hours Temperature 98.9 F Temperature 99.1 F Temperature 97.5 F Temperature 97.5 F Temperature 98.4 F Temperature 98.2 F - Labs CBC & Chem 7: 04/09/18 02:30 04/11/18 05:56 Labs: Abnormal lab results 04/11/18 04/12/18 04/12/18 Range/Units 21:08 07:24 11:28 POC Glucose 190 H 211 H 201 H (70-105) 04/12/18 Range/Units 16:24 POC Glucose 238 H (70-105)
[2018-04-12] MEDS: LOVENOX SUB-Q SCH (22:09)
[2018-04-13] MEDS: AMPICILLIN/NS 2 GM/100 ML 2 GM/100 ML BAG IV SCH ×6 (02:33→21:57)
[2018-04-13] MEDS: GENTAMICIN/NS 100 MG/100 ML 100 MG/100 ML BAG IV SCH ×2 (05:10→15:00)
[2018-04-13] MEDS: NACL 0.9% 1000 ML 1,000 ML IV SCH ×2 (05:54→18:57)
[2018-04-13] MEDS: HumaLOG SUB-Q SCH ×4 (08:28→22:20)
--- NOTE | 2018-04-13 09:49 | Progress Note ---
Assessment and Plan Assessment and plan: 67-year-old lady with a history of diabetes, breast cancer, CVA, asthma, leukemia, right arm fracture comes to the emergency room for evaluation. Patient was recently discharged from the hospital one month ago for enterococcus sepsis. Patient stated that since she has been discharged she has been feeling very weak, needed assistance to do her ADLs. She fell at home and fractured the right arm and has been taking pain medications. She is a very little oral intake she was noted to be confused on April 02. Her physician sent her to [facility] where she was given IV fluids. She was noted to have a fever and was discharged home on antibiotics and hydrocodone for pain. she was sent to ER for Fever In the emergency room she was given IV fluid, Zosyn . Patient also complained that she has been having diarrhea 2 days, 3-4 episodes a day PAST MEDICAL HISTORY: diabetes, breast cancer, CVA, asthma, leukemia, right arm fracture Diagnosis hypotension Acute renal insufficiency- due to vasomotor nephropathy Diarrhea Breast cancer Diabetes History of CVA Asthma, stable History of leukemia Thrombocytopenia, mild, monitoring lactic acidosis fever R arm fracture constipation malnutrition Plan -ID input appreciated, continue abx - dc ivf diarrhea has now resolved, c diff toxin was not sent blood cx neg , ua neg, cxr neg cont ssi -ortho consult, pain mgt, sp Closed reduction insertion of intramedullary nail right proximal humerus 04/11/17 - presented w fever, Needs BRIANA due to recurrent E. faecalis bacteremia - stool softeners - nutritional supplements, director title consult [employer]; I have offered her KATHY, but she is refusing, she would prefer to go home with home services History Interval history: Right upper extremity pain is improved after surgery Review of systems Constitutional: No fevers, no malaise, no joint pains CVS: No chest pain, no orthopnea, no dyspnea on exertion, no pedal edema GI: No abdominal pain, no diarrhea, no vomiting, no constipation Respiratory: No shortness of breath, no wheezing, no coughing Hospitalist Physical - Physical exam Narrative exam: General.: Appears well, no distress, nontoxic, obese HEENT: Moist mucous membranes, extraocular muscles intact, no lymphadenopathy Neck: supple Cardiac: S1-S2 heard Lungs: clear to auscultation bilaterally Abdomen: soft , nontender, nondistended, bowel sounds positive Extremities: Right upper extremity splinted Skin: no rash or lesions Neurologic: no gross focal deficits Psych: calm, and cooperative - Constitutional Vitals: Temp Pulse Resp BP Pulse Ox 99.1 F 113 H 20 136/84 98 04/13/18 08:00 04/13/18 08:00 04/13/18 08:00 04/13/18 08:00 04/13/18 08:00 Results - Labs CBC & Chem 7: 04/09/18 02:30 04/11/18 05:56 Labs: Laboratory Last Values WBC 9.5 K/mm3 (4.5-11.0) 04/09/18 02:30 RBC 3.06 M/mm3 (3.65-5.03) L 04/09/18 02:30 Hgb 10.4 gm/dl (10.1-14.3) 04/09/18 02:30 Hct 31.5 % (30.3-42.9) 04/09/18 02:30 MCV 103 fl (79-97) H 04/09/18 02:30 MCH 34 pg (28-32) H 04/09/18 02:30 MCHC 33 % (30-34) 04/09/18 02:30 RDW 16.4 % (13.2-15.2) H 04/09/18 02:30 Plt Count 94 K/mm3 (140-440) L 04/09/18 02:30 Add Manual Diff Complete 04/09/18 02:30 Total Counted 100 04/09/18 02:30 Seg Neuts % (Manual) 72.0 % (40.0-70.0) H 04/09/18 02:30 Band Neutrophils % 0 % 04/09/18 02:30 Lymphocytes % (Manual) 13.0 % (13.4-35.0) L 04/09/18 02:30 Reactive Lymphs % (Man) 0 % 04/09/18 02:30 Monocytes % (Manual) 13.0 % (0.0-7.3) H 04/09/18 02:30 Eosinophils % (Manual) 2.0 % (0.0-4.3) 04/09/18 02:30 Basophils % (Manual) 0 % (0.0-1.8) 04/09/18 02:30 Metamyelocytes % 0 % 04/09/18 02:30 Myelocytes % 0 % 04/09/18 02:30 Promyelocytes % 0 % 04/09/18 02:30 Blast Cells % 0 % 04/09/18 02:30 Nucleated RBC % Not Reportable 04/09/18 02:30 Seg Neutrophils # Man 6.8 K/mm3 (1.8-7.7) 04/09/18 02:30 Band Neutrophils # 0.0 K/mm3 04/09/18 02:30 Lymphocytes # (Manual) 1.2 K/mm3 (1.2-5.4) 04/09/18 02:30 Abs React Lymphs (Man) 0.0 K/mm3 04/09/18 02:30 Monocytes # (Manual) 1.2 K/mm3 (0.0-0.8) H 04/09/18 02:30 Eosinophils # (Manual) 0.2 K/mm3 (0.0-0.4) 04/09/18 02:30 Basophils # (Manual) 0.0 K/mm3 (0.0-0.1) 04/09/18 02:30 Metamyelocytes # 0.0 K/mm3 04/09/18 02:30 Myelocytes # 0.0 K/mm3 04/09/18 02:30 Promyelocytes # 0.0 K/mm3 04/09/18 02:30 Blast Cells # 0.0 K/mm3 04/09/18 02:30 WBC Morphology Not Reportable 04/09/18 02:30 Hypersegmented Neuts Not Reportable 04/09/18 02:30 Hyposegmented Neuts Not Reportable 04/09/18 02:30 Hypogranular Neuts Not Reportable 04/09/18 02:30 Smudge Cells Not Reportable 04/09/18 02:30 Toxic Granulation Not Reportable 04/09/18 02:30 Toxic Vacuolation Not Reportable 04/09/18 02:30 Dohle Bodies Not Reportable 04/09/18 02:30 Pelger-Huet Anomaly Not Reportable 04/09/18 02:30 Tiffany Rods Not Reportable 04/09/18 02:30 Platelet Estimate Appears decreased 04/09/18 02:30 Clumped Platelets Not Reportable 04/09/18 02:30 Plt Clumps, EDTA Not Reportable 04/09/18 02:30 Large Platelets Not Reportable 04/09/18 02:30 Giant Platelets Not Reportable 04/09/18 02:30 Platelet Satelliting Not Reportable 04/09/18 02:30 Plt Morphology Comment Not Reportable 04/09/18 02:30 RBC Morphology Not Reportable 04/09/18 02:30 Dimorphic RBCs Not Reportable 04/09/18 02:30 Polychromasia Not Reportable 04/09/18 02:30 Hypochromasia Not Reportable 04/09/18 02:30 Poikilocytosis Not Reportable 04/09/18 02:30 Anisocytosis Not Reportable 04/09/18 02:30 Microcytosis Not Reportable 04/09/18 02:30 Macrocytosis 1+ 04/09/18 02:30 Spherocytes Not Reportable 04/09/18 02:30 Pappenheimer Bodies Not Reportable 04/09/18 02:30 Sickle Cells Not Reportable 04/09/18 02:30 Target Cells Not Reportable 04/09/18 02:30 Tear Drop Cells 1+ 04/09/18 02:30 Ovalocytes 1+ 04/09/18 02:30 Helmet Cells Not Reportable 04/09/18 02:30 [place] Bodies Not Reportable 04/09/18 02:30 Lowell Rings Not Reportable 04/09/18 02:30 Pawan Cells Not Reportable 04/09/18 02:30 Bite Cells Not Reportable 04/09/18 02:30 Crenated Cell 1+ 04/09/18 02:30 Elliptocytes Not Reportable 04/09/18 02:30 Acanthocytes (Spur) Not Reportable 04/09/18 02:30 Rouleaux Not Reportable 04/09/18 02:30 Hemoglobin C Crystals Not Reportable 04/09/18 02:30 Schistocytes Not Reportable 04/09/18 02:30 Malaria parasites Not Reportable 04/09/18 02:30 Albert Bodies Not Reportable 04/09/18 02:30 Hem Pathologist Commnt No 04/09/18 02:30 Sodium 141 mmol/L (137-145) 04/11/18 05:56 Potassium 4.5 mmol/L (3.6-5.0) 04/11/18 05:56 Chloride 107.7 mmol/L (98-107) H 04/11/18 05:56 Carbon Dioxide 21 mmol/L (22-30) L 04/11/18 05:56 Anion Gap 17 mmol/L 04/11/18 05:56 BUN 21 mg/dL (7-17) H 04/11/18 05:56 Creatinine 1.1 mg/dL (0.7-1.2) 04/11/18 05:56 Estimated GFR 50 ml/min 04/11/18 05:56 BUN/Creatinine Ratio 19 % 04/11/18 05:56 Glucose 223 mg/dL (65-100) H 04/11/18 05:56 POC Glucose 175 (70-105) H 04/13/18 07:27 Hemoglobin A1c 8.4 % (4-6) H 04/13/18 00:43 Lactic Acid 1.80 mmol/L (0.7-2.0) 04/09/18 09:28 Calcium 8.4 mg/dL (8.4-10.2) 04/11/18 05:56 Total Bilirubin 0.50 mg/dL (0.1-1.2) 04/08/18 18:55 AST 23 units/L (5-40) 04/08/18 18:55 ALT 16 units/L (7-56) 04/08/18 18:55 Alkaline Phosphatase 75 units/L (35-129) 04/08/18 18:55 C-Reactive Protein 2.90 mg/dL (0.00-1.30) H 04/09/18 10:23 Total Protein 6.4 g/dL (6.3-8.2) 04/08/18 18:55 Albumin 3.7 g/dL (3.9-5) L 04/08/18 18:55 Albumin/Globulin Ratio 1.4 % 04/08/18 18:55 Urine Color Yellow (Yellow) 04/08/18 20:20 Urine Turbidity Clear (Clear) 04/08/18 20:20 Urine pH 5.0 (5.0-7.0) 04/08/18 20:20 Ur Specific Brewster 1.013 (1.003-1.030) 04/08/18 20:20 Urine Protein <15 mg/dl mg/dL (Negative) 04/08/18 20:20 Urine Glucose (UA) Neg mg/dL (Negative) 04/08/18 20:20 Urine Ketones Neg mg/dL (Negative) 04/08/18 20:20 Urine Blood Neg (Negative) 04/08/18 20:20 Urine Nitrite Neg (Negative) 04/08/18 20:20 Urine Bilirubin Neg (Negative) 04/08/18 20:20 Urine Urobilinogen < 2.0 mg/dL (<2.0) 04/08/18 20:20 Ur Leukocyte Esterase Neg (Negative) 04/08/18 20:20 Urine WBC (Auto) 1.0 /HPF (0.0-6.0) 04/08/18 20:20 Urine RBC (Auto) 1.0 /HPF (0.0-6.0) 04/08/18 20:20 Urine Mucus Few /HPF 04/08/18 20:20 Random Gentamicin 0.3 ug/mL (0.0-10.0) 04/10/18 05:59
[2018-04-13] MEDS: MORPHINE IV PRN ×2 (09:54→14:48)
[2018-04-13] MEDS: GLUCOPHAGE PO SCH ×2 (09:59→22:20)
[2018-04-13] MEDS: ZYLOPRIM PO SCH (09:59)
[2018-04-13] MEDS: HALFPRIN EC PO SCH (09:59)
[2018-04-13] MEDS: DITROPAN XL PO SCH (09:59)
[2018-04-13] MEDS: SODIUM CHLORIDE FLUSH SYRINGE 10 ML IV SCH ×2 (10:00→21:34)
--- NOTE | 2018-04-13 12:39 | Progress Note ---
Assessment and Plan Status post closed reduction intramedullary nail right humerus Plan -pendulum exercises right shoulder most likely require rehabilitation services upon discharge Subjective Date of service: 04/13/18 Principal diagnosis: bacteremia Interval history: Complaining of right shoulder pain especially after PT session Objective Vital signs: Vital Signs - 12hr 04/13/18 04/13/18 04/13/18 03:37 03:45 07:25 Temperature 98.8 F Pulse Rate 115 H 113 H Respiratory 20 Rate Blood Pressure 128/76 Blood Pressure [Left] O2 Sat by Pulse 92 98 Oximetry 04/13/18 04/13/18 04/13/18 07:50 08:00 09:54 Temperature 99.1 F Pulse Rate 113 H Respiratory 20 20 20 Rate Blood Pressure Blood Pressure 136/84 [Left] O2 Sat by Pulse 98 Oximetry Narrative Exam: Right shoulder - incision clean and dry no sign of infection moderate swelling - Labs CBC & BMP: 04/09/18 02:30 04/11/18 05:56 Labs: Abnormal lab results 04/12/18 04/12/18 04/13/18 Range/Units 16:24 21:31 00:43 POC Glucose 238 H 221 H (70-105) Hemoglobin A1c 8.4 H (4-6) % 04/13/18 04/13/18 Range/Units 07:27 11:40 POC Glucose 175 H 179 H (70-105) Hemoglobin A1c (4-6) %
[2018-04-13] MEDS ORDERED: PERCOCET 5/325 PO PRN (14:55)
[2018-04-13] MEDS: SINGULAIR PO SCH (17:11)
[2018-04-13] MEDS ORDERED: SENOKOT S PO PRN (18:25)
[2018-04-13] MEDS ORDERED: MIRALAX 3350 PO PRN (18:25)
[2018-04-13] MEDS ORDERED: FLEET PR PRN (18:25)
[2018-04-13] MEDS ORDERED: GLYCERIN ADULT 2 GM PR PRN (18:25)
[2018-04-13] MEDS: LOVENOX SUB-Q SCH (21:31)
[2018-04-13] MEDS: TORADOL IV PRN (21:57)
[2018-04-14] MEDS: AMPICILLIN/NS 2 GM/100 ML 2 GM/100 ML BAG IV SCH ×6 (01:53→22:00)
[2018-04-14] MEDS: GENTAMICIN/NS 100 MG/100 ML 100 MG/100 ML BAG IV SCH (04:24)
[2018-04-14] MEDS: NACL 0.9% 1000 ML 1,000 ML IV SCH (06:03)
[2018-04-14] MEDS ORDERED: NACL 0.9% 500 ML 0 ML ONE (07:35)
[2018-04-14] MEDS: HumaLOG SUB-Q SCH ×4 (07:38→22:56)
--- NOTE | 2018-04-14 07:43 | XRay Report ---
RIGHT SHOULDER, 2 VIEWS History: Right proximal humerus fracture, IM nail. Findings: Fluoroscopy was provided by radiology during internal fixation of a proximal right humeral fracture with intramedullary benigno and screws. Alignment is near-anatomic. Please correlate with the procedural report by Dr. Feng as needed. Impression: Open reduction and internal fixation of a proximal right humerus fracture.
--- NOTE | 2018-04-14 07:46 | XRay Report ---
RIGHT SHOULDER, 2 VIEWS History: Right proximal humerus fracture, IM nailing, jukebox checker film. Findings: Fluoroscopy was provided by radiology. 2 fluoroscopic jukebox checker images of the right shoulder were obtained prior to surgery demonstrate a comminuted fracture of the proximal right humerus. Large joint effusion at the glenohumeral joint with mild inferior subluxation is suspected. The remainder of the examination is within normal limits. Impression: Proximal right humerus fracture.
[2018-04-14] MEDS ORDERED: HURRICAINE ONE 20% TOPICAL SPRAY MM NR (08:00)
--- NOTE | 2018-04-14 08:03 | Progress Note ---
Assessment and Plan Imaging 04/08/2018 ChestXray: No focal pulmonary infiltrate identified. No pleural fluid collection seen. Cultures: Reviewed from [facility] 04/03/2018 Blood: GPC, Enterococcus faecalis 03/02/2018: Blood Enterococcus faecalis 04/08/2018: no growth thus far A/P: 67-year old patient with a histiry of Breast Cancer and Acute lymphocytic leukemia on chemo, diabetes, CVA, asthma, previously admitted to [facility] on 03/01/2018 for Sepsis, etiology Enterococcus faecalis bacteremia, discharged on 03/07/18 on OPAT, Ampicillian continuous infusion until 03/18/18. Presented with chills at oncologist office on 04/03/18, sent to [facility] ED, blood cultures were drawn and were positive for Enteroccocus faecalis bacteremia,. 1. Enteroccocus faecalis Bacteremia: Blood cultures at [facility] grew Enterococcus faecalis on 04/03/18. Immunocompromised host. No fever, leuk ocytoisis. U/A negative. Source unclear. +/- PICC line - removed. Continue Ampicillian and Gentamicin. -TTE - shows no vegetation -BRIANA- shows no vegetation 2. Acute Lymphocytic Leukemia: Received her intrathecal chemotherapy 03/27/18. 3. History of Breast CA: 4. Diarrhea- Resolved 5. Acute Renal Insufficiency- resolved 6. Diabetes - tight glycemic control 7. Displaced right proximal humerus fx: S/P closed reduction insertion intramedullary nail right humerus surgery Plan: F/u blood cultures so far neg Continue Ampicillin to 2gm IV while inpatient Discontinue gentamycin Order PICC line Upon discharge will do Ampicillin 12gms continuous infusion for 3 weeks until 04/29/18- will arrange OPAT with [facility] M: [phone] O:[phone] Subjective Date of service: 04/14/18 Principal diagnosis: bacteremia Interval history: Patent seen and examined. Denied SOB, rash or fevers. S/P surgery for displaced surgical neck fracture. Son at bedside, discussed OPAT plan, verbalized understanding. Objective - Exam Narrative Exam: Constitutional: Alert, cooperative. mild distress Head, Ears, Nose: Normocephalic, atraumatic. External ears, nose normal Eyes: Conjunctivae/corneas clear. No icterus. No ptosis. Neck: Supple, no meningeal signs Oral: dentition good, no thrush Cardiovascular: S1, S2 normal. Respiratory: Good air entry, clear to auscultation bilaterally GI: Soft, non-tender; bowel sounds normal. No peritoneal signs Musculoskeletal: No pedal edema, no cyanosis, Displaced right proximal humerus fx Skin: No rash or abscess. Hem/Lymphatic: No palpable cervical or supraclavicular nodes. No lymphangitis Psych: Mood ok. Affect normal Neurological: Awake, alert, oriented. Lines: none - Constitutional Vitals: Vital Signs Temp Pulse Resp BP Pulse Ox 98.5 F 110 H 20 130/60 95 04/14/18 04:01 04/14/18 07:59 04/14/18 04:01 04/14/18 07:59 04/14/18 07:59 Temperature -Last 24 Hours Temperature 98.5 F Temperature 98.1 F Temperature 99.5 F - Labs CBC & Chem 7: 04/09/18 02:30 04/11/18 05:56 Labs: Abnormal lab results 04/13/18 04/13/18 04/13/18 Range/Units 11:40 16:35 22:12 POC Glucose 179 H 176 H 178 H (70-105) 04/14/18 Range/Units 07:07 POC Glucose 165 H (70-105)
[2018-04-14] MEDS ORDERED: VERSED IV ONE (09:00)
[2018-04-14] MEDS ORDERED: SUBLIMAZE IV ONE (09:00)
--- NOTE | 2018-04-14 09:52 | Event Note ---
Date: 04/14/18 BRIANA performed without complications. BRIANA is negative.
--- NOTE | 2018-04-14 10:20 | Progress Note ---
Assessment and Plan Assessment and plan: 67-year-old lady with a history of diabetes, breast cancer, CVA, asthma, leukemia, right arm fracture comes to the emergency room for evaluation. Patient was recently discharged from the hospital one month ago for enterococcus sepsis. Patient stated that since she has been discharged she has been feeling very weak, needed assistance to do her ADLs. She fell at home and fractured the right arm and has been taking pain medications. She is a very little oral intake she was noted to be confused on April 02. Her physician sent her to [facility] where she was given IV fluids, she was diagnosed with a right humerus fracture, and it was put in a sling. She was noted to have a fever and was discharged home on antibiotics and hydrocodone for pain. She presented to the hospital with fever and weakness * She was hypotensive and dehydrated upon arrival, she received IV fluids, VAZQUEZ resolved * The patient has a history of recurrence bacteremia with E fecalis. Blood cultures were negative during this admission. She has been receiving antibiotics, she had a BRIANA on 04/14/18 which was negative for endocarditis * She was treated with sliding scale insulin for diabetes with hyperglycemia. * She complained of worsening right upper extremity pain. X-ray confirmed displaced humeral head/neck fracture, she underwent closed reduction and insertion of intramedullary nail to the right proximal humerus 04/11/17 * The patient had very poor by mouth consumption, she was advised on improved nutrition and given dietary supplements, she received dietitian consult * She had severe debility, she has been offered subacute rehabilitation placement, but she is currently refusing, family are not sure that he can care for her in her current state, at this time we are waiting for the family and the patient's to discuss subacute rehabilitation placement. case management consult placed. Diagnosis hypotension Acute renal insufficiency- due to vasomotor nephropathy Diarrhea Breast cancer Diabetes History of CVA Asthma, stable History of leukemia Thrombocytopenia, mild, monitoring lactic acidosis fever R arm fracture constipation malnutrition History Interval history: Right upper extremity pain is improved after surgery Review of systems Constitutional: No fevers, no malaise, no joint pains CVS: No chest pain, no orthopnea, no dyspnea on exertion, no pedal edema GI: No abdominal pain, no diarrhea, no vomiting, no constipation Respiratory: No shortness of breath, no wheezing, no coughing Hospitalist Physical - Physical exam Narrative exam: General.: Appears well, no distress, nontoxic, obese HEENT: Moist mucous membranes, extraocular muscles intact, no lymphadenopathy Neck: supple Cardiac: S1-S2 heard Lungs: clear to auscultation bilaterally Abdomen: soft , nontender, nondistended, bowel sounds positive Extremities: Right upper extremity splinted Skin: no rash or lesions Neurologic: no gross focal deficits Psych: calm, and cooperative - Constitutional Vitals: Temp Pulse Resp BP Pulse Ox 98.7 F 107 H 24 123/66 95 04/14/18 08:27 04/14/18 08:57 04/14/18 08:57 04/14/18 08:57 04/14/18 08:57 Results - Labs CBC & Chem 7: 04/09/18 02:30 04/11/18 05:56 Labs: Laboratory Last Values WBC 9.5 K/mm3 (4.5-11.0) 04/09/18 02:30 RBC 3.06 M/mm3 (3.65-5.03) L 04/09/18 02:30 Hgb 10.4 gm/dl (10.1-14.3) 04/09/18 02:30 Hct 31.5 % (30.3-42.9) 04/09/18 02:30 MCV 103 fl (79-97) H 04/09/18 02:30 MCH 34 pg (28-32) H 04/09/18 02:30 MCHC 33 % (30-34) 04/09/18 02:30 RDW 16.4 % (13.2-15.2) H 04/09/18 02:30 Plt Count 94 K/mm3 (140-440) L 04/09/18 02:30 Add Manual Diff Complete 04/09/18 02:30 Total Counted 100 04/09/18 02:30 Seg Neuts % (Manual) 72.0 % (40.0-70.0) H 04/09/18 02:30 Band Neutrophils % 0 % 04/09/18 02:30 Lymphocytes % (Manual) 13.0 % (13.4-35.0) L 04/09/18 02:30 Reactive Lymphs % (Man) 0 % 04/09/18 02:30 Monocytes % (Manual) 13.0 % (0.0-7.3) H 04/09/18 02:30 Eosinophils % (Manual) 2.0 % (0.0-4.3) 04/09/18 02:30 Basophils % (Manual) 0 % (0.0-1.8) 04/09/18 02:30 Metamyelocytes % 0 % 04/09/18 02:30 Myelocytes % 0 % 04/09/18 02:30 Promyelocytes % 0 % 04/09/18 02:30 Blast Cells % 0 % 04/09/18 02:30 Nucleated RBC % Not Reportable 04/09/18 02:30 Seg Neutrophils # Man 6.8 K/mm3 (1.8-7.7) 04/09/18 02:30 Band Neutrophils # 0.0 K/mm3 04/09/18 02:30 Lymphocytes # (Manual) 1.2 K/mm3 (1.2-5.4) 04/09/18 02:30 Abs React Lymphs (Man) 0.0 K/mm3 04/09/18 02:30 Monocytes # (Manual) 1.2 K/mm3 (0.0-0.8) H 04/09/18 02:30 Eosinophils # (Manual) 0.2 K/mm3 (0.0-0.4) 04/09/18 02:30 Basophils # (Manual) 0.0 K/mm3 (0.0-0.1) 04/09/18 02:30 Metamyelocytes # 0.0 K/mm3 04/09/18 02:30 Myelocytes # 0.0 K/mm3 04/09/18 02:30 Promyelocytes # 0.0 K/mm3 04/09/18 02:30 Blast Cells # 0.0 K/mm3 04/09/18 02:30 WBC Morphology Not Reportable 04/09/18 02:30 Hypersegmented Neuts Not Reportable 04/09/18 02:30 Hyposegmented Neuts Not Reportable 04/09/18 02:30 Hypogranular Neuts Not Reportable 04/09/18 02:30 Smudge Cells Not Reportable 04/09/18 02:30 Toxic Granulation Not Reportable 04/09/18 02:30 Toxic Vacuolation Not Reportable 04/09/18 02:30 Dohle Bodies Not Reportable 04/09/18 02:30 Pelger-Huet Anomaly Not Reportable 04/09/18 02:30 Tiffany Rods Not Reportable 04/09/18 02:30 Platelet Estimate Appears decreased 04/09/18 02:30 Clumped Platelets Not Reportable 04/09/18 02:30 Plt Clumps, EDTA Not Reportable 04/09/18 02:30 Large Platelets Not Reportable 04/09/18 02:30 Giant Platelets Not Reportable 04/09/18 02:30 Platelet Satelliting Not Reportable 04/09/18 02:30 Plt Morphology Comment Not Reportable 04/09/18 02:30 RBC Morphology Not Reportable 04/09/18 02:30 Dimorphic RBCs Not Reportable 04/09/18 02:30 Polychromasia Not Reportable 04/09/18 02:30 Hypochromasia Not Reportable 04/09/18 02:30 Poikilocytosis Not Reportable 04/09/18 02:30 Anisocytosis Not Reportable 04/09/18 02:30 Microcytosis Not Reportable 04/09/18 02:30 Macrocytosis 1+ 04/09/18 02:30 Spherocytes Not Reportable 04/09/18 02:30 Pappenheimer Bodies Not Reportable 04/09/18 02:30 Sickle Cells Not Reportable 04/09/18 02:30 Target Cells Not Reportable 04/09/18 02:30 Tear Drop Cells 1+ 04/09/18 02:30 Ovalocytes 1+ 04/09/18 02:30 Helmet Cells Not Reportable 04/09/18 02:30 [place] Bodies Not Reportable 04/09/18 02:30 Cheney Rings Not Reportable 04/09/18 02:30 Pawan Cells Not Reportable 04/09/18 02:30 Bite Cells Not Reportable 04/09/18 02:30 Crenated Cell 1+ 04/09/18 02:30 Elliptocytes Not Reportable 04/09/18 02:30 Acanthocytes (Spur) Not Reportable 04/09/18 02:30 Rouleaux Not Reportable 04/09/18 02:30 Hemoglobin C Crystals Not Reportable 04/09/18 02:30 Schistocytes Not Reportable 04/09/18 02:30 Malaria parasites Not Reportable 04/09/18 02:30 Albert Bodies Not Reportable 04/09/18 02:30 Hem Pathologist Commnt No 04/09/18 02:30 Sodium 141 mmol/L (137-145) 04/11/18 05:56 Potassium 4.5 mmol/L (3.6-5.0) 04/11/18 05:56 Chloride 107.7 mmol/L (98-107) H 04/11/18 05:56 Carbon Dioxide 21 mmol/L (22-30) L 04/11/18 05:56 Anion Gap 17 mmol/L 04/11/18 05:56 BUN 21 mg/dL (7-17) H 04/11/18 05:56 Creatinine 1.1 mg/dL (0.7-1.2) 04/11/18 05:56 Estimated GFR 50 ml/min 04/11/18 05:56 BUN/Creatinine Ratio 19 % 04/11/18 05:56 Glucose 223 mg/dL (65-100) H 04/11/18 05:56 POC Glucose 165 (70-105) H 04/14/18 07:07 Hemoglobin A1c 8.4 % (4-6) H 04/13/18 00:43 Lactic Acid 1.80 mmol/L (0.7-2.0) 04/09/18 09:28 Calcium 8.4 mg/dL (8.4-10.2) 04/11/18 05:56 Total Bilirubin 0.50 mg/dL (0.1-1.2) 04/08/18 18:55 AST 23 units/L (5-40) 04/08/18 18:55 ALT 16 units/L (7-56) 04/08/18 18:55 Alkaline Phosphatase 75 units/L (35-129) 04/08/18 18:55 C-Reactive Protein 2.90 mg/dL (0.00-1.30) H 04/09/18 10:23 Total Protein 6.4 g/dL (6.3-8.2) 04/08/18 18:55 Albumin 3.7 g/dL (3.9-5) L 04/08/18 18:55 Albumin/Globulin Ratio 1.4 % 04/08/18 18:55 Urine Color Yellow (Yellow) 04/08/18 20:20 Urine Turbidity Clear (Clear) 04/08/18 20:20 Urine pH 5.0 (5.0-7.0) 04/08/18 20:20 Ur Specific [place] 1.013 (1.003-1.030) 04/08/18 20:20 Urine Protein <15 mg/dl mg/dL (Negative) 04/08/18 20:20 Urine Glucose (UA) Neg mg/dL (Negative) 04/08/18 20:20 Urine Ketones Neg mg/dL (Negative) 04/08/18 20:20 Urine Blood Neg (Negative) 04/08/18 20:20 Urine Nitrite Neg (Negative) 04/08/18 20:20 Urine Bilirubin Neg (Negative) 04/08/18 20:20 Urine Urobilinogen < 2.0 mg/dL (<2.0) 04/08/18 20:20 Ur Leukocyte Esterase Neg (Negative) 04/08/18 20:20 Urine WBC (Auto) 1.0 /HPF (0.0-6.0) 04/08/18 20:20 Urine RBC (Auto) 1.0 /HPF (0.0-6.0) 04/08/18 20:20 Urine Mucus Few /HPF 04/08/18 20:20 Random Gentamicin 0.3 ug/mL (0.0-10.0) 04/10/18 05:59
[2018-04-14] MEDS: GLUCOPHAGE PO SCH ×2 (11:00→22:57)
[2018-04-14] MEDS: DITROPAN XL PO SCH (11:00)
[2018-04-14] MEDS: HALFPRIN EC PO SCH (11:00)
[2018-04-14] MEDS: SODIUM CHLORIDE FLUSH SYRINGE 10 ML IV SCH (11:00)
[2018-04-14] MEDS: ZYLOPRIM PO SCH (11:00)
--- NOTE | 2018-04-14 12:36 | XRay Report ---
AP CHEST: HISTORY: PICC placement A left arm PICC has been inserted which terminates near the cavoatrial junction. Mild cardiomegaly and pulmonary venous congestion have developed since 04/08/18. The lungs are clear. No evidence for pneumonia, CHF or pneumothorax. IMPRESSION: Adequate left arm PICC placement. Mild cardiomegaly and pulmonary venous congestion.
[2018-04-14] MEDS: TORADOL IV PRN (12:39)
[2018-04-14] MEDS: SINGULAIR PO SCH (17:22)
--- NOTE | 2018-04-14 21:30 | Progress Note ---
Assessment and Plan Status post closed reduction intramedullary nail right humerus Plan -pendulum exercises right shoulder most likely require rehabilitation services upon discharge Subjective Date of service: 04/14/18 Principal diagnosis: bacteremia Interval history: Complaining of right shoulder pain especially after PT session Objective Vital signs: Vital Signs - 12hr 04/14/18 04/14/18 04/14/18 09:48 10:00 13:28 Temperature 99.0 F 98.9 F Pulse Rate 108 H 102 H Respiratory 24 20 20 Rate Blood Pressure 128/74 153/98 O2 Sat by Pulse 96 96 91 Oximetry 04/14/18 19:57 Temperature 98.6 F Pulse Rate 91 H Respiratory 20 Rate Blood Pressure O2 Sat by Pulse 96 Oximetry Narrative Exam: Right shoulder - incision clean and dry no sign of infection moderate swelling - Labs CBC & BMP: 04/09/18 02:30 04/11/18 05:56 Labs: Abnormal lab results 04/13/18 04/14/18 04/14/18 Range/Units 22:12 07:07 11:29 POC Glucose 178 H 165 H 145 H (70-105) 04/14/18 Range/Units 16:33 POC Glucose 155 H (70-105)
[2018-04-14] MEDS: LOVENOX SUB-Q SCH (22:55)
[2018-04-15] MEDS: NACL 0.9% 1000 ML 1,000 ML IV SCH ×2 (00:19→09:26)
[2018-04-15] MEDS: AMPICILLIN/NS 2 GM/100 ML 2 GM/100 ML BAG IV SCH ×4 (02:00→13:03)
[2018-04-15] MEDS: HumaLOG SUB-Q SCH ×2 (07:52→12:07)
--- NOTE | 2018-04-15 08:25 | Progress Note ---
Assessment and Plan Imaging 04/08/2018 ChestXray: No focal pulmonary infiltrate identified. No pleural fluid collection seen. 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 Presented with chills at oncologist office on 04/03/18, sent to [facility] ED, blood cultures were drawn and were positive for Enteroccocus faecalis bacteremia,. 1. Enteroccocus faecalis Bacteremia: Blood cultures at [facility] grew Enterococcus faecalis on 04/03/18. Immunocompromised host. No fever, leuk ocytoisis. U/A negative. Source unclear. +/- PICC line - removed. Continue Ampicillian and Gentamicin. -TTE - shows no vegetation -BRIANA- shows no vegetation 2. Acute Lymphocytic Leukemia: Received her intrathecal chemotherapy 03/27/18. 3. History of Breast CA: 4. Diarrhea- Resolved 5. Acute Renal Insufficiency- resolved 6. Diabetes - tight glycemic control 7. Displaced right proximal humerus fx: S/P closed reduction insertion intramedullary nail right humerus surgery Plan: Continue Ampicillin to 2gm IV while inpatient Upon discharge will do Ampicillin 12gms continuous infusion for 3 weeks until 04/29/18 Order placed with case management [facility] M: [id number] O:[phone] Subjective Date of service: 04/15/18 Principal diagnosis: bacteremia Interval history: Patent seen and examined. Denied SOB, rash or fevers. Stated that she was feeling better today and ready to go home. Granddaughter at bedside. OPAT plan discussed, verbalized understanding. Objective - Exam Narrative Exam: Constitutional: Alert, cooperative. no acute distress Head, Ears, Nose: Normocephalic, atraumatic. External ears, nose normal Eyes: Conjunctivae/corneas clear. No icterus. No ptosis. Neck: Supple, no meningeal signs Oral: dentition good, no thrush Cardiovascular: S1, S2 normal. Respiratory: Good air entry, clear to auscultation bilaterally GI: Soft, non-tender; bowel sounds normal. No peritoneal signs Musculoskeletal: No pedal edema, no cyanosis, Displaced right proximal humerus fx Skin: No rash or abscess. Hem/Lymphatic: No palpable cervical or supraclavicular nodes. No lymphangitis Psych: Mood ok. Affect normal Neurological: Awake, alert, oriented. Lines: PICC line - Constitutional Vitals: Vital Signs Temp Pulse Resp BP Pulse Ox 98.0 F 96 H 20 155/81 95 04/15/18 02:31 04/15/18 02:31 04/15/18 02:31 04/15/18 02:31 04/15/18 02:31 Temperature -Last 24 Hours Temperature [Post-Procedure] 98.7 F Temperature 98.0 F Temperature 98.6 F Temperature 98.9 F Temperature 99.0 F - Labs CBC & Chem 7: 04/09/18 02:30 04/11/18 05:56 Labs: Abnormal lab results 04/14/18 04/14/18 04/14/18 Range/Units 11:29 16:33 21:48 POC Glucose 145 H 155 H 169 H (70-105) 04/15/18 Range/Units 07:34 POC Glucose 127 H (70-105)
[2018-04-15] MEDS: GLUCOPHAGE PO SCH (09:32)
[2018-04-15] MEDS: HALFPRIN EC PO SCH (09:32)
[2018-04-15] MEDS: ZYLOPRIM PO SCH ×2 (09:32→12:12)
[2018-04-15] MEDS: DITROPAN XL PO SCH (09:32)
[2018-04-15] MEDS: SODIUM CHLORIDE FLUSH SYRINGE 10 ML IV SCH (12:12)
--- NOTE | 2018-04-15 14:28 | Discharge Summary ---
Providers - Providers Date of Admission: 04/08/18 22:22 Attending physician: JERAMY BRYANT MD 04/08/18 21:22 Consult to Physician [CONS] Stat Comment: Consulting Provider: TROY KIRBY Physician Instructions: Reason For Exam: acute lymphocytic leukemia 04/08/18 21:52 Consult to Physician [CONS] Stat Comment: Consulting Provider: DRE YUNG Physician Instructions: Reason For Exam: admission 04/09/18 16:35 Consult to Physician [CONS] Routine Comment: Consulting Provider: ANGELA OSORIO Physician Instructions: Reason For Exam: r arm fracture 04/11/18 20:38 Physical Therapy Evaluation and Treat [CONS] Routine Comment: pendulum exercises right shoulder Reason For Exam: postop evaluation Weight bearing status?: Full wt bearing Assistive devices?: No 04/13/18 14:54 Consult to Dietitian/Nutrition [CONS] Routine Physician Instructions: Reason For Exam: Reason for Consult: Malnutrition 04/14/18 10:23 Consult to PICC Line RN [CONS] Urgent Reason For Exam: PICC for outpatient antibiotic therapy Type Line:: PICC 04/15/18 08:25 Consult to Case Management [CONS] Urgent Services Needed at Discharge: Other Notified:: no Additional Physician Instructions: [facility] M [phone] O [phone] F [phone] OUTPATIENT PARENTERAL ANTIBIOTIC THERAPY ORDERS Diagnoses: E. Faecalis Bacteremia Antimicrobial administration: Upon discharge will do Ampicillin 12gms continuous infusion for 3 weeks until 04/29/18. Remove PICC line after last dose unless otherwise instructed. Lines: PICC Lab monitoring: CBC, BUN, Creatinine, ALT, AST, once a week preferly on Saturday morning. Please fax results to [phone] and call [phone] for critical lab results. Kirsten Solis NP/Dr. Em Date: 04/15/18 Primary care physician: STUDENT RECRUITER Hospitalization Condition: Stable Hospital course: 67-year-old lady with a history of diabetes, breast cancer, CVA, asthma, leukemia, right arm fracture comes to the emergency room for evaluation. Patient was recently discharged from the hospital one month ago for enterococcus sepsis. Patient stated that since she has been discharged she has been feeling very weak, needed assistance to do her ADLs. She fell at home and fractured the right arm and has been taking pain medications. She is a very little oral intake she was noted to be confused on April 02. Her physician sent her to [facility] where she was given IV fluids, she was diagnosed with a right humerus fracture, and it was put in a sling. She was noted to have a fever and was discharged home on antibiotics and hydrocodone for pain. She presented to the hospital with fever and weakness * She was hypotensive and dehydrated upon arrival, she received IV fluids, VAZQUEZ resolved * The patient has a history of recurrence bacteremia with E fecalis. Blood cultures were negative during this admission. She has been receiving antibio tics, she had a BRIANA on 04/14/18 which was negative for endocarditis * She was treated with sliding scale insulin for diabetes with hyperglycemia. * She complained of worsening right upper extremity pain. X-ray confirmed displaced humeral head/neck fracture, she underwent closed reduction and insertion of intramedullary nail to the right proximal humerus 04/11/17 * The patient had very poor by mouth consumption, she was advised on improved nutrition and given dietary supplements, she received dietitian consult * She had severe debility, she has been offered subacute rehabilitation placement, but she is currently refusing, she is being dc with Home PT * per ID, she is to have unasyn IV till 04/29, arrangements have been made Diagnosis hypotension Acute renal insufficiency- due to vasomotor nephropathy Diarrhea Breast cancer Diabetes History of CVA Asthma, stable History of leukemia Thrombocytopenia, mild, monitoring lactic acidosis fever R arm fracture constipation malnutrition Disposition: DC/TX- HOME UNDER HOME [facility] Time spent for discharge: 33 mins Core Measure Documentation - Palliative Care Palliative Care/ Comfort Measures: Not Applicable - Core Measures Any of the following diagnoses?: none Exam - Physical Exam Narrative exam: General.: Appears well, no distress, nontoxic, obese HEENT: Moist mucous membranes, extraocular muscles intact, no lymphadenopathy Neck: supple Cardiac: S1-S2 heard Lungs: clear to auscultation bilaterally Abdomen: soft , nontender, nondistended, bowel sounds positive Extremities: Right upper extremity splinted Skin: no rash or lesions Neurologic: no gross focal deficits Psych: calm, and cooperative - Constitutional Vitals: Temp Pulse Resp BP Pulse Ox 98.9 F 99 H 20 179/88 97 04/15/18 07:51 04/15/18 07:51 04/15/18 07:51 04/15/18 07:51 04/15/18 13:23 Plan Follow up with: PRIMARY CARE,MD [Primary Care Provider] - 7 Days Prescriptions: oxyCODONE /ACETAMINOPHEN [Percocet 5/325 mg] 2 tab PO Q6H PRN #30 tablet PRN Reason: Pain, Moderate (4-6) Polyethylene Glycol 3350 [Miralax 3350] 17 gm PO BID PRN #60 powd.pack PRN Reason: Constipation Sennosides/Docusate [Senokot S] 2 tab PO Q12H PRN #60 tablet PRN Reason: Laxative Effect
[2018-04-15 16:18] VITALS: BP 150/80
== END 2018-04-15 17:00 | disposition home health service (06) | DRG 853 ==
LOC: ED 18:17 → IMCU 22:22 → 2B-ACE 04-10 05:55
PROVIDERS: ADMIT Internal Medicine; ATTEND Internal Medicine
PROC: 0PHC36Z Insertion of Intramedullary Internal Fixation Device into Right Humeral Head, Percutaneous Approach (ICD-10-PCS; principal; 2018-04-11)
PROC: 02HV33Z Insertion of Infusion Device into Superior Vena Cava, Percutaneous Approach (ICD-10-PCS; 2018-04-14)
DX: A41.81 Sepsis due to Enterococcus (principal); N17.0 Acute kidney failure with tubular necrosis; R65.21 Severe sepsis with septic shock; S42.291A Other displaced fracture of upper end of right humerus, initial encounter for closed fracture; E87.2 Acidosis; C91.00 Acute lymphoblastic leukemia not having achieved remission; E46 Unspecified protein-calorie malnutrition; I12.9 Hypertensive chronic kidney disease with stage 1 through stage 4 chronic kidney disease, or unspecified chronic kidney disease; W18.39XA Other fall on same level, initial encounter; D69.6 Thrombocytopenia, unspecified; R19.7 Diarrhea, unspecified; E11.22 Type 2 diabetes mellitus with diabetic chronic kidney disease; J45.909 Unspecified asthma, uncomplicated; K21.9 Gastro-esophageal reflux disease without esophagitis; N18.3 Chronic kidney disease, stage 3 (moderate); I25.10 Atherosclerotic heart disease of native coronary artery without angina pectoris; Z86.73 Personal history of transient ischemic attack (TIA), and cerebral infarction without residual deficits; E11.65 Type 2 diabetes mellitus with hyperglycemia; Z85.3 Personal history of malignant neoplasm of breast; Z90.49 Acquired absence of other specified parts of digestive tract; Z90.710 Acquired absence of both cervix and uterus; Z82.49 Family history of ischemic heart disease and other diseases of the circulatory system; Z79.82 Long term (current) use of aspirin; Z79.4 Long term (current) use of insulin; Z79.899 Other long term (current) drug therapy; Z90.10 Acquired absence of unspecified breast and nipple; Z92.21 Personal history of antineoplastic chemotherapy; Z68.38 Body mass index [BMI] 38.0-38.9, adult; Y93.89 Activity, other specified; Y92.098 Other place in other non-institutional residence as the place of occurrence of the external cause; Y99.8 Other external cause status; Z79.84 Long term (current) use of oral hypoglycemic drugs
CPT/HCPCS: 36415; 71045; 80048; 80053; 80170; 81001; 82140; 82962; 83036; 85007; 85025; 86140; 87040; 93306; 93312; 93320; 93325; 94760; 96365; 96372; 96375; G0378; A9270-GY; C1713; C1769; G8978-GP; G8979-GP; J0290; J0690; J0692; J1170; J1580; J1650; J1815; J1885; J2250; J2270; J2405; J2543; J2710; J3010; J3370; J7030; J7040; J7120

== ENCOUNTER 2018-05-30 07:10 | Day surgery (SDC) | payer MEDICARE ==
[~2018-05-30 07:10] MED LIST: ANCEF/STERILE WATER 2 GM/20 ML 2 GM/20 ML SYRINGE IV NR
[2018-05-30 08:42] LABS: Basophils % (Auto) 0.1 % (0.0-1.8); Eosinophils # (Auto) 0.5 K/mm3 (0.0-0.4); Hematocrit 32.6 % (30.3-42.9); Lymphocytes % (Auto) 31.7 % (13.4-35.0); Mean Corpuscular HGB Conc 34 % (30-34); Mean Corpuscular Volume 98 fl (79-97); Monocytes # (Auto) 0.8 K/mm3 (0.0-0.8); Monocytes % (Auto) 13.2 % (0.0-7.3); Platelet Count 100 K/mm3 (140-440); Red Blood Count 3.33 M/mm3 (3.65-5.03); Red Cell Distribution Width 15.3 % (13.2-15.2)
[2018-05-30 08:51] LABS: INR 1.06 (0.87-1.13); Partial Thromboplastin Time 30.2 Sec. (24.2-36.6)
[2018-05-30 08:55] LABS: Calcium 9.3 mg/dL (8.4-10.2)
[2018-05-30] MEDS: NACL 0.9% 1000 ML 1,000 ML IV SCH ×2 (09:17→10:40)
[2018-05-30] MEDS ORDERED: HEPARIN 10,000 UNITS/10 ML ONE (10:09)
[2018-05-30] MEDS ORDERED: XYLOCAINE 1%/ EPI 1:100,000 INFILTRATI ONE ×2 (10:09→10:55)
[2018-05-30] MEDS ORDERED: HEPARIN/NS 5000 UNIT/500ML(CATH LAB) 500 ML IR ONE (10:09)
[2018-05-30] MEDS ORDERED: ANCEF/STERILE WATER 2 GM/20 ML 2 GM/20 ML SYRINGE IV ONE (10:09)
[2018-05-30] MEDS: VERSED ONE ×2 (10:43→10:45)
[2018-05-30] MEDS: SUBLIMAZE ONE ×2 (10:43→10:45)
[2018-05-30] MEDS ORDERED: VERSED ONE (10:53)
[2018-05-30] MEDS ORDERED: SUBLIMAZE ONE (10:53)
--- NOTE | 2018-05-30 11:29 | Short Stay Summary ---
Short Stay Documentation Date of service: 05/30/18 Narrative H&P: 67-year-old female with leukemia who presents for port placement. - History Principal diagnosis: Leukemia H&P: obtained from office - Allergies and Medications Current Medications: Allergies No Known Allergies Allergy (Verified 02/14/15 14:01) Home Medications Medication Instructions Recorded Confirmed Last Taken Type Allopurinol [Zyloprim] 300 mg PO QDAY 12/16/14 05/30/18 05/29/18 History AtorvaSTATin [Lipitor] 40 mg PO QPM 12/16/14 05/30/18 05/29/18 History Insulin Lispro Prot/Lispro 42 unit SQ BID 12/16/14 05/30/18 05/29/18 History [HumaLOG Mix 75/25 Vial] Metoprolol Xl [Metoprolol 50 mg PO BID 12/16/14 05/30/18 05/29/18 History SUCCINATE ER TAB] Oxybutynin Chloride [Oxybutynin 10 mg PO QDAY 12/16/14 05/30/18 05/29/18 History Chloride ER] Furosemide [Lasix TAB] 20 mg PO QDAY 08/31/17 05/30/18 05/29/18 History Valsartan/Hydrochlorothiazide 1 each PO DAILY 08/31/17 05/30/18 05/29/18 History [Valsartan-Hctz 160-12.5 mg Tab] metFORMIN [Glucophage] 500 mg PO BID 08/31/17 05/30/18 05/29/18 History Active Medications Cefazolin Sodium (Ancef/Sterile Water 2 Gm/20 Ml) 2 gm in 20 mls @ 80 mls/hr IV PREOP NR; Protocol Stop: 05/30/18 23:00 Last Admin: 05/30/18 10:40 Dose: 20 mls Documented by: Sodium Chloride (Nacl 0.9% 1000 Ml) 1,000 mls @ 42 mls/hr IV DIRECT JEREMÍAS Last Admin: 05/30/18 10:40 Dose: 42 mls/hr Documented by: - Physical exam General appearance: no acute distress Lungs: Normal air movement Gastrointestinal: normal - Brief post op/procedure progress note Date of procedure: 05/30/18 Pre-op diagnosis: Leukemia Post-op diagnosis: same Procedure: port placement, left side Anesthesia: local (w/ conscious sedation) Surgeon: DAREK ARMSTRONG Estimated blood loss: minimal Condition: stable - Hospital course Hospital course: Ready for discharge - Disposition Condition at discharge: Stable Disposition: DC-01 TO HOME OR SELFCARE - Discharge Diagnoses (1) Leukemia Status: Acute Short Stay Discharge Plan Activity: advance as tolerated Weight Bearing Status: Weight Bear as Tolerated Diet: regular Wound: keep clean and dry, other (take off tegaderm in 24 hrs, keep area clean and dry, no shower for 1 week, steristrips and glue will fall off on their own) Follow up with: DANIELLE RAMIREZ MD [Primary Care Provider] - 7 Days
--- NOTE | 2018-05-30 11:33 | Operative Report ---
Operative Report Operative Report: EXAM: 1. Ultrasound-guided puncture of the left internal jugular vein 2. Fluoroscopic-guided placement of a left internal jugular tunneled 8 Fr BARD port placement. DATE: 05/30/18 INDICATION: Leukemia requiring port placement MEDICATIONS: Please see nursing report for full details. DEVICES: 8 Fr single lumen power port CONTRAST: None TUBE SIZER OPERATOR: Phillip Fuentes MD PROCEDURE: The risks, benefits, and alternatives were discussed and informed consent was obtained. The patient was transported to the angiography suite in satisfactory/stable condition and was transported onto the angiography table. The patient's left internal jugular vein was assessed with ultrasound and determined to be patent prior to procedure. The patient was prepped and draped in a sterile fashion. The puncture site was anesthetized. Under sonographic guidance, the left internal jugular vein was punctured with a 21-gauge micropuncture needle and a 0.018 inch wire was advanced into the inferior vena cava. The micropuncture needle was exchanged for a transitional dilator and the wire was retracted into the right atrium to braulio intravascular distance. The wire and inner dilator were removed. 0.035 inch Amplatz wire was advanced through the transitional dilator into the inferior vena cava with the assistance of a vertebral catheter. A suitable port pocket site was identified on the patient's chest inferior and lateral to the venotomy. The site was anesthetized with local anesthetic at the pocket and the track was anesthetized. Incision was made with a 15 blade extending approximately 2 cm. The port was created with the use of a hemostat and hemostasis was achieved with manual compression. The port pocket was irrigated. The port was tested and the port was attached to the tubing. The port was the retested and attached to the tunneling device. The port was placed in the pocket and then tunneled to the venotomy. The port tubing was cut to predetermined length. Over the 0.035 inch Amplatz wire, serial dilatation was performed with ultimate placement of a peel-away sheath. The catheter was advanced through the peel- away sheath after the wire was removed and positioned centrally under fluoroscopic guidance. The peel-away sheath was removed. The pocket was closed in 2 layers with multiple deep interrupted 3-0 Vicryl sutures with a running subcuticular 4-0 Vicryl suture. The venotomy was closed with a single deep interrupted 4-0 Vicryl suture. Dermabond was applied to both sites and Steri-Strips were then applied. Sterile dressing applied. The port was charged in heparin 200 units/mL space. The patient was transferred from the angiography suite back to the recovery area in stable condition. FINDINGS: 1. Excellent flow was obtained through the port. 2. The catheter tip is in the right atrium. IMPRESSION: 1. Successful ultrasound and fluoroscopically guided placement of a left internal jugular tunneled 8 [place] Bard signal lumen power port.
[2018-05-30 12:08] VITALS: BP 132/71
== END 2018-05-30 14:00 | disposition home or self-care (01) ==
LOC: CATHLABREC 07:10
PROVIDERS: ATTEND Radiology Diagnostic Radiology
DX: C80.1 Malignant (primary) neoplasm, unspecified (principal); C95.90 Leukemia, unspecified not having achieved remission; D69.6 Thrombocytopenia, unspecified; I12.9 Hypertensive chronic kidney disease with stage 1 through stage 4 chronic kidney disease, or unspecified chronic kidney disease; E11.22 Type 2 diabetes mellitus with diabetic chronic kidney disease; N18.3 Chronic kidney disease, stage 3 (moderate); K21.9 Gastro-esophageal reflux disease without esophagitis; I25.10 Atherosclerotic heart disease of native coronary artery without angina pectoris; E78.00 Pure hypercholesterolemia, unspecified; E66.9 Obesity, unspecified; M06.9 Rheumatoid arthritis, unspecified; F41.9 Anxiety disorder, unspecified; Z79.84 Long term (current) use of oral hypoglycemic drugs; Z79.4 Long term (current) use of insulin; Z79.899 Other long term (current) drug therapy; Z95.828 Presence of other vascular implants and grafts; Z90.710 Acquired absence of both cervix and uterus; Z96.652 Presence of left artificial knee joint; Z90.49 Acquired absence of other specified parts of digestive tract; Z85.3 Personal history of malignant neoplasm of breast; Z90.721 Acquired absence of ovaries, unilateral; Z82.49 Family history of ischemic heart disease and other diseases of the circulatory system; Z86.73 Personal history of transient ischemic attack (TIA), and cerebral infarction without residual deficits; Z68.37 Body mass index [BMI] 37.0-37.9, adult
CPT/HCPCS: 36415; 36561; 80048; 85025; 85610; 85730; 99156; 99157; C1769; C1788; J0690; J1644; J2250; J3010; J7030; 76937; 77001; Q9967

== ENCOUNTER 2018-10-19 11:34 | Inpatient (IN) | payer MEDICARE, OTHER ==
--- NOTE | 2018-10-19 11:54 | Event Note ---
ED Screening Note Date of service: 10/19/18 Time: 11:49 ED Screening Note: 68 y/o female brought in by son concern that patient has increase weakness and more altered mental status. Has Leukemia and is Followed by [facility] in [place]. Last Chemo was Saturday. This initial assessment/diagnostic orders/clinical plan/treatment(s) is/are subject to change based on patients health status, clinical progression and re- assessment by fellow clinical providers in the ED. Further treatment and workup at subsequent clinical providers discretion. Patient/guardian urged not to elope from the ED as their condition may be serious if not clinically assessed and managed. Initial orders include:
[2018-10-19 12:56] LABS: Calcium 9.5 mg/dL (8.4-10.2)
[2018-10-19 13:02] LABS: Basophils % (Auto) 0.5 % (0.0-1.8); Eosinophils % (Auto) 0.6 % (0.0-4.3); Hematocrit 26.1 % (30.3-42.9); Hemoglobin 9.3 gm/dl (10.1-14.3); Mean Corpuscular HGB Conc 36 % (30-34); Mean Corpuscular Volume 100 fl (79-97); Monocytes # (Auto) 0.3 K/mm3 (0.0-0.8); Monocytes % (Auto) 5.5 % (0.0-7.3); Red Cell Distribution Width 16.6 % (13.2-15.2)
[2018-10-19] MEDS ORDERED: HumuLIN R IV ONE (13:21)
[2018-10-19] MEDS ORDERED: NACL 0.9% 500 ML 500 ML IV ONE (13:21)
--- NOTE | 2018-10-19 13:22 | Emergency Department Report ---
ED General Adult HPI - General Chief complaint: Weakness Stated complaint: GENERAL WEAKNESS/DIZZY Time Seen by Provider: 10/19/18 12:53 Source: patient, family, RN notes reviewed, old records reviewed Mode of arrival: Wheelchair Limitations: Altered Mental Status - History of Present Illness Initial comments: Primary care Dr.: Dr Tyson Oncology: Dr Crum Past medical history: Left-sided port, diabetes, breast cancer, strokes, asthma, leukemia, history of right arm fracture, history of renal insufficiency, history of enterococcus bacteremia This is a 68-year-old female. This patient is not known to this provider previously. History is mostly obtained from patient's family. Patient is accompanied by her son, and family. Patient has been altered since Saturday. Today is Saturday. As per family, patient typically not very mobile or ambulatory , but typically alert and oriented. Family endorses that since Saturday, patient has been "off." Typically, patient needs help with some activities of daily living. The patient has no physical complaints at this time. The family states that they're not sure if the patient has started new medications. The family states that there is been no episodes of syncope, fever, nausea or vomiting. There is no mention of specific pain. Patient altered, not able to describe exacerbating or relieving factors, radiation, or qualitative nature of her symptoms. When questioned, the patient denies headache, neck pain, chest pain, abdominal pain. -: days(s) Quality: other Consistency: other Improves with: other Worsens with: other Associated Symptoms: other - Related Data Home Medications Medication Instructions Recorded Confirmed Last Taken Allopurinol [Zyloprim] 300 mg PO QDAY 12/16/14 10/19/18 10/18/18 AtorvaSTATin [Lipitor] 40 mg PO QPM 12/16/14 10/19/18 10/18/18 Metoprolol Xl [Metoprolol 50 mg PO BID 12/16/14 10/19/18 10/18/18 SUCCINATE ER TAB] Oxybutynin Chloride [Oxybutynin 10 mg PO QDAY 12/16/14 10/19/18 10/18/18 Chloride ER] Valsartan/Hydrochlorothiazide 12.5 - 160 each PO DAILY 08/31/17 10/19/18 09/29/18 [Valsartan-Hctz 160-12.5 mg Tab] metFORMIN [Glucophage] 500 mg PO BID 08/31/17 10/19/18 10/18/18 Anastrozole [Arimidex] 1 mg PO QDAY 10/19/18 10/19/18 10/18/18 Aspirin [Adult Aspirin] 81 mg PO QDAY 10/19/18 10/19/18 10/18/18 Glimepiride [Amaryl] 4 mg PO QDAY 10/19/18 10/19/18 10/18/18 Montelukast [Singulair] 10 mg PO QDAY 10/19/18 10/19/18 10/18/18 Allergies Allergy/AdvReac Type Severity Reaction Status Date / Time No Known Allergies Allergy Verified 02/14/15 14:01 ED Review of Systems ROS: Stated complaint: GENERAL WEAKNESS/DIZZY Other details as noted in HPI Comment: ros per family Constitutional: malaise, weakness Eyes: denies: eye discharge ENT: denies: epistaxis Cardiovascular: denies: syncope Gastrointestinal: denies: abdominal pain Musculoskeletal: denies: back pain Neurological: weakness, confusion ED Past Medical Hx - Past Medical History Previous Medical History?: Yes Hx Hypertension: Yes Hx CVA: Yes Hx Heart Attack/AMI: No Hx Diabetes: Yes Hx Deep Vein Thrombosis: No Hx GERD: Yes Hx Renal Disease: Yes (CKD STAGE 3) Hx Arthritis: Yes Hx Asthma: Yes (LAST ATTACK AT 24YRS OLD) Additional medical history: breast cancer in remission - Surgical History Past Surgical History?: Yes Hx Pacemaker: No Hx Internal Defibrillator: No Hx Cholecystectomy: Yes (2004) Hx Breast Surgery: Yes (ELIOT EXCISION OF CYST, RT BREAST Bx 09/2014, PART MAST. 01/26/15) Additional Surgical History: PICC to left chest - Social History Smoking Status: Never Smoker Substance Use Type: None - Medications Home Medications: Home Medications Medication Instructions Recorded Confirmed Last Taken Type Allopurinol [Zyloprim] 300 mg PO QDAY 12/16/14 10/19/18 10/18/18 History AtorvaSTATin [Lipitor] 40 mg PO QPM 12/16/14 10/19/18 10/18/18 History Metoprolol Xl [Metoprolol 50 mg PO BID 12/16/14 10/19/18 10/18/18 History SUCCINATE ER TAB] Oxybutynin Chloride [Oxybutynin 10 mg PO QDAY 12/16/14 10/19/18 10/18/18 History Chloride ER] Valsartan/Hydrochlorothiazide 12.5 - 160 each PO DAILY 08/31/17 10/19/18 09/29/18 History [Valsartan-Hctz 160-12.5 mg Tab] metFORMIN [Glucophage] 500 mg PO BID 08/31/17 10/19/18 10/18/18 History Anastrozole [Arimidex] 1 mg PO QDAY 10/19/18 10/19/18 10/18/18 History Aspirin [Adult Aspirin] 81 mg PO QDAY 10/19/18 10/19/18 10/18/18 History Glimepiride [Amaryl] 4 mg PO QDAY 10/19/18 10/19/18 10/18/18 History Montelukast [Singulair] 10 mg PO QDAY 10/19/18 10/19/18 10/18/18 History ED Physical Exam - General Limitations: Altered Mental Status General appearance: alert, lethargic, obese - Head Head exam: Present: atraumatic, normocephalic - Eye Eye exam: Present: normal appearance, EOMI, other (visual acuity intact partially to finger counting and color perception. Patient initially recognizes 5 fingers being held up, and incorrectly identifies 3 finger shortly thereafter.). Absent: nystagmus - ENT ENT exam: Present: mucous membranes dry - Neck Neck exam: Present: normal inspection, full ROM - Respiratory Respiratory exam: Present: normal lung sounds bilaterally. Absent: respiratory distress - Cardiovascular Cardiovascular Exam: Present: regular rate, normal rhythm, normal heart sounds. Absent: bradycardia, tachycardia, irregular rhythm, systolic murmur, diastolic murmur, rubs, gallop - GI/Abdominal GI/Abdominal exam: Present: soft. Absent: distended, tenderness, guarding, rebound, rigid - Rectal Rectal exam: Present: normal inspection, other (chaperoned by Jenna Richardson) - Extremities Exam Extremities exam: Present: normal inspection, pedal edema, other (2+ pulses noted in the bilateral upper, lower extremities. Compartments soft. No long bony tenderness. The pelvis is stable.). Absent: calf tenderness - Back Exam Back exam: Absent: tenderness, CVA tenderness (R), CVA tenderness (L), paraspinal tenderness, vertebral tenderness - Neurological Exam Neurological exam: Present: altered (the patient is alert to name. The patient thinks the year is 1950. The patient thinks that she is in the hospital.), other (no facial droop. Tongue is midline. Extraocular movements are intact. Hearing is grossly intact. Normal speech and phonation. 4 out of 5 strength in 4 extremities. Sensation intact to light touch in 4 extremities.) - Psychiatric Psychiatric exam: Present: flat affect - Skin Skin exam: Present: warm, dry, intact, normal color. Absent: rash ED Course Vital Signs 10/19/18 10/19/18 10/19/18 11:48 13:00 13:35 Temperature 98.0 F 98.2 F Pulse Rate 74 65 Respiratory 16 16 Rate Blood Pressure 193/92 Blood Pressure 167/86 [Left] O2 Sat by Pulse 98 100 Oximetry 10/19/18 10/19/18 10/19/18 14:07 18:08 18:30 Temperature Pulse Rate 80 75 67 Respiratory 16 Rate Blood Pressure Blood Pressure 164/68 147/65 139/66 [Left] O2 Sat by Pulse 99 Oximetry - Reevaluation(s) Reevaluation #1: 10/19/18 14:34 Differential diagnosis, including not limited to: Dementia, pneumonia, urinary tract infection, thyroid derangement, medication side effect, metastatic disease, intracranial hemorrhage Assessment and plan: 68-year-old female with nonfocal motor exam with approximately 48 hours of altered mental status. Given duration of symptoms and physical exam findings, patient not a TPA candidate, and presentation unlikely be consistent with large vessel occlusion. Laboratory studies show hyperglycemia, renal insufficiency. No fever rectally. Urinalysis pending, additional screening laboratories are pending, CT scan of the brain is pending, nursing team to reconcile patient's medications. We will treat her with fluids and insulin, and admit once initial data points have resulted. Reevaluation #2: 10/19/18 15:38 UA PENDING ammonia elevated ct head negative magnesium repleted Dr Gold to admit elevated lactic acid appreciated, suspect dehydration at this time will defer to inpatient team to follow up on ua 10/19/18 15:40 10/20/18 19:07 ED Medical Decision Making - Lab Data Result diagrams: 10/20/18 02:39 10/20/18 02:39 Vital Signs 10/19/18 10/19/18 11:48 13:35 Temperature 98.0 F 98.2 F Pulse Rate 74 Respiratory 16 Rate Blood Pressure 193/92 O2 Sat by Pulse 98 Oximetry Lab Results 10/19/18 10/19/18 Range/Units 12:10 12:10 WBC 6.1 (4.5-11.0) K/mm3 RBC 2.60 L (3.65-5.03) M/mm3 Hgb 9.3 L (10.1-14.3) gm/dl Hct 26.1 L (30.3-42.9) % MCV 100 H (79-97) fl MCH 36 H (28-32) pg MCHC 36 H (30-34) % RDW 16.6 H (13.2-15.2) % Plt Count 43 L (140-440) K/mm3 Lymph % (Auto) 33.0 (13.4-35.0) % Dubois % (Auto) 5.5 (0.0-7.3) % Eos % (Auto) 0.6 (0.0-4.3) % Baso % (Auto) 0.5 (0.0-1.8) % Lymph # 2.0 (1.2-5.4) K/mm3 Dubois # 0.3 (0.0-0.8) K/mm3 Eos # 0.0 (0.0-0.4) K/mm3 Baso # 0.0 (0.0-0.1) K/mm3 Seg Neutrophils % 60.4 (40.0-70.0) % Seg Neutrophils # 3.7 (1.8-7.7) K/mm3 Sodium 141 (137-145) mmol/L Potassium 4.3 (3.6-5.0) mmol/L Chloride 102.5 (98-107) mmol/L Carbon Dioxide 21 L (22-30) mmol/L Anion Gap 22 mmol/L BUN 37 H (7-17) mg/dL Creatinine 1.3 H (0.7-1.2) mg/dL Estimated GFR 41 ml/min BUN/Creatinine Ratio 28 % Glucose 384 H (65-100) mg/dL Calcium 9.5 (8.4-10.2) mg/dL Total Bilirubin 0.50 (0.1-1.2) mg/dL AST 18 (5-40) units/L ALT 19 (7-56) units/L Alkaline Phosphatase 117 (35-129) units/L Total Protein 6.6 (6.3-8.2) g/dL Albumin 4.0 (3.9-5) g/dL Albumin/Globulin Ratio 1.5 % - EKG Data -: EKG Interpreted by Me EKG shows normal: sinus rhythm Rate: normal - EKG Data When compared to previous EKG there are: no significant change Interpretation: no acute changes 10/19/18 14:35 This is a sinus rhythm, 68 bpm, left axis deviation, left anterior fascicular block, QTC prolonged, right bundle branch block, low voltage in the lateral leads, this is an abnormal EKG, the EKG appears to be unchanged from prior EKG from 2017. - Radiology Data Radiology results: report reviewed, image reviewed Print Report Referring Physician: SAQIB GUILLEN Patient Name: RUDI HOLLIS Date of : 1950 Sex: Female Report Date: 2018-10-19 Report Status: Finalized Findings [facility] [address] [place] [address] XRay Report Signed Patient: RUDI HOLLIS MR#: [id number] : 1950 Acct:[id number] Age/Sex: 68 / F ADM Date: 10/19/18 Loc: ED Attending Dr: Ordering Physician: BRAYAN KUMAR Date of Service: 10/19/18 Procedure(s): XR chest 1V ap Accession Number(s): [id number] cc: BRAYAN KUMAR Fluoro Time In Minutes: CHEST 1 VIEW INDICATION / CLINICAL INFORMATION: weakness and AMS. COMPARISON: None available. FINDINGS: SUPPORT DEVICES: Port-A-Cath is in place on the left. HEART / MEDIASTINUM: Minimally enlarged. LUNGS / PLEURA: No significant pulmonary or pleural abnormality. No pneumothorax. ADDITIONAL FINDINGS: There has been prior right axillary node dissection. Medullary benigno is seen in the right humerus. IMPRESSION: 1. No acute findings. Signer Name: Minh Soriano MD Signed: 10/19/2018 1:20 PM Workstation Name: [id number] Transcribed By: JOSE ANGEL Dictated By: Minh Soriano MD Electronically Authenticated By: Minh Soriano MD Signed Date/Time: 10/19/18 1320 Critical care attestation.: If time is entered above; I have spent that time in minutes in the direct care of this critically ill patient, excluding procedure time. ED Disposition Clinical Impression: Renal insufficiency, Thrombocytopenia, Encephalopathy, VAZQUEZ (acute kidney injury), Hypomagnesemia Diabetes mellitus Qualifiers: Diabetes mellitus type: type 2 Disposition: OP ADMIT IP TO THIS HOSP Is pt being admited?: Yes Does the pt Need Aspirin: No Condition: Fair
--- NOTE | 2018-10-19 13:25 | XRay Report ---
CHEST 1 VIEW INDICATION / CLINICAL INFORMATION: weakness and AMS. COMPARISON: None available. FINDINGS: SUPPORT DEVICES: Port-A-Cath is in place on the left. HEART / MEDIASTINUM: Minimally enlarged. LUNGS / PLEURA: No significant pulmonary or pleural abnormality. No pneumothorax. ADDITIONAL FINDINGS: There has been prior right axillary node dissection. Medullary benigno is seen in th e right humerus. IMPRESSION: 1. No acute findings. Signer Name: Minh Soriano MD Signed: 10/19/2018 1:20 PM Workstation Name: [id number]
[2018-10-19 14:28] LABS: Platelet Count 43 K/mm3 (140-440)
[2018-10-19] MEDS ORDERED: MAG-OX PO STA (14:54)
[2018-10-19] MEDS ORDERED: CEPHULAC PO ONE (14:54)
[2018-10-19] MEDS ORDERED: MAGNESIUM SULFATE 2GM/50ML 2 GM/50 ML BAG IV ONE (14:54)
--- NOTE | 2018-10-19 15:36 | Cat Scan Report ---
CT head/brain wo con INDICATION: Change in mental status; weakness; chemotherapy on Saturday TECHNIQUE: Routine CT head without contrast. Sagittal and coronal reformatted images were obtained. A ll CT scans at this location are performed using CT dose reduction for ALARA by means of automated ex posure control. COMPARISON: CT scan from 08/31/2017 FINDINGS: BRAIN / INTRACRANIAL CONTENTS: No acute hemorrhage, mass effect, midline shift, hydrocephalus, or acu te, large territorial infarct. No chronic infarct or focal atrophy. Normal brain volume and ventricul ar/sulcal size for age. Periventricular low density areas are seen on the left frontal horn. This is probably due to microvascular faint angiopathy. CRANIOCERVICAL JUNCTION: No significant abnormality. ORBITS: No significant abnormality of visualized orbits. SINUSES / MASTOIDS: No significant abnormality of the visualized paranasal sinuses or mastoid air abi ls. ADDITIONAL FINDINGS: Please note these images are obtained in the 4 slice helical scanner. IMPRESSION: I do not see an acute parenchymal lesion in the brain. Signer Name: Kenyetta Edgar MD Signed: 10/19/2018 3:32 PM Workstation Name: [id number]
[2018-10-19 18:46] LABS: Bilirubin,Urine NEG (Negative); Blood,Urine NEG (Negative); Color,Urine Straw (Yellow); Mucus,Urine FEW /HPF; Urobilinogen,Urine < 2.0 mg/dL (<2.0)
[2018-10-19 19:26] LABS: Bacteria,Urine 1+ /HPF (Negative)
--- NOTE | 2018-10-19 22:54 | History and Physical Report ---
History of Present Illness Date of examination: 10/19/18 Date of admission: 10/19/18 15:41 Chief complaint: Altered sensorium for 2 days History of present illness: 68-year-old female with a history of breast cancer and recently diagnosed leukemia on chemotherapy brought in by her family for altered sensorium. Patient is on chemotherapy on a regular basis. Patient is being treated by Dr. KIRBY. Patient is not clear about her history of breast cancer and leukemia. Patient needs help with activities of daily living. Patient has been altered for the last 2 days. During my exam patient talking appropriately. Patient says that she has improved in the last few hours. No syncope or chest pain. No vomiting or diarrhea. Patient also has a history of cerebrovascular accident hypertension asthma renal insufficiency and diabetes. Past Medical History Previous Medical History?: Yes Hypertension: Yes CVA: Yes Diabetes: Yes GERD: Yes Renal Disease: Yes (CKD STAGE 3) Arthritis: Yes Asthma: Yes (LAST ATTACK AT 24YRS OLD) Additional medical history: breast cancer in remission Surgical History Past Surgical History?: Yes Cholecystectomy: Yes (2004) Breast Surgery: Yes (ELIOT EXCISION OF CYST, RT BREAST Bx 09/2014, PART MAST. 1 ) Additional Surgical History: PICC to left chest Social History Smoking Status: Never Smoker Substance Use Type: None Family history Htn Medications Home Medications: Home Medications Medication Instructions Recorded Confirmed Last Taken Type Allopurinol [Zyloprim] 300 mg PO QDAY 12/16/14 10/19/18 10/18/18 History AtorvaSTATin [Lipitor] 40 mg PO QPM 12/16/14 10/19/18 10/18/18 History Metoprolol Xl [Metoprolol 50 mg PO BID 12/16/14 10/19/18 10/18/18 History SUCCINATE ER TAB] Oxybutynin Chloride [Oxybutynin 10 mg PO QDAY 12/16/14 10/19/18 10/18/18 History Chloride ER] Valsartan/Hydrochlorothiazide 12.5 - 160 each PO DAILY 08/31/17 10/19/18 09/29/18 History [Valsartan-Hctz 160-12.5 mg Tab] metFORMIN [Glucophage] 500 mg PO BID 08/31/17 10/19/18 10/18/18 History Anastrozole [Arimidex] 1 mg PO QDAY 10/19/18 10/19/18 10/18/18 History Aspirin [Adult Aspirin] 81 mg PO QDAY 10/19/18 10/19/18 10/18/18 History Glimepiride [Amaryl] 4 mg PO QDAY 10/19/18 10/19/18 10/18/18 History Montelukast [Singulair] 10 mg PO QDAY 10/19/18 10/19/18 10/18/18 History Review of Systems ROS: Stated complaint: GENERAL WEAKNESS/DIZZY Other details as noted in HPI Comment: ros per family Constitutional: malaise, weakness Eyes: denies: eye discharge ENT: denies: epistaxis Cardiovascular: denies: syncope Gastrointestinal: denies: abdominal pain Musculoskeletal: denies: back pain Neurological: weakness, confusion 14 point review of systems done--- otherwise negative Medications and Allergies Allergies Allergy/AdvReac Type Severity Reaction Status Date / Time No Known Allergies Allergy Verified 02/14/15 14:01 Home Medications Medication Instructions Recorded Confirmed Last Taken Type Allopurinol [Zyloprim] 300 mg PO QDAY 12/16/14 10/19/18 10/18/18 History AtorvaSTATin [Lipitor] 40 mg PO QPM 12/16/14 10/19/18 10/18/18 History Metoprolol Xl [Metoprolol 50 mg PO BID 12/16/14 10/19/18 10/18/18 History SUCCINATE ER TAB] Oxybutynin Chloride [Oxybutynin 10 mg PO QDAY 12/16/14 10/19/18 10/18/18 History Chloride ER] Valsartan/Hydrochlorothiazide 12.5 - 160 each PO DAILY 08/31/17 10/19/18 09/29/18 History [Valsartan-Hctz 160-12.5 mg Tab] metFORMIN [Glucophage] 500 mg PO BID 08/31/17 10/19/18 10/18/18 History Anastrozole [Arimidex] 1 mg PO QDAY 10/19/18 10/19/18 10/18/18 History Aspirin [Adult Aspirin] 81 mg PO QDAY 10/19/18 10/19/18 10/18/18 History Glimepiride [Amaryl] 4 mg PO QDAY 07/21/19 07/21/19 07/20/19 History Montelukast [Singulair] 10 mg PO QDAY 10/19/18 10/19/18 10/18/18 History Exam - Constitutional Vitals: Temp Pulse Resp BP Pulse Ox 98.2 F 67 16 139/66 99 10/19/18 13:35 10/19/18 18:30 10/19/18 18:30 10/19/18 18:30 10/19/18 18:30 General appearance: Present: no acute distress, well-nourished - EENT Eyes: Present: PERRL ENT: hearing intact, clear oral mucosa - Neck Neck: Present: supple, normal ROM - Respiratory Respiratory effort: normal Respiratory: bilateral: CTA - Cardiovascular Heart rate: 80 Rhythm: regular Heart Sounds: Present: S1 & S2. Absent: rub, click - Extremities Extremities: no ischemia, pulses intact, pulses symmetrical, No edema Peripheral Pulses: within normal limits - Abdominal General gastrointestinal: Present: soft, non-tender, non-distended, normal bowel sounds Female genitourinary: Present: normal - Rectal Rectal Exam: deferred - Integumentary Integumentary: Present: clear, warm, dry - Musculoskeletal Musculoskeletal: gait normal, strength equal bilaterally - Psychiatric Psychiatric: appropriate mood/affect, intact judgment & insight - Neurologic Neurologic: CNII-XII intact, moves all extremities - Allied Health Allied health notes reviewed: nursing, case management Results - Labs CBC & Chem 7: 10/19/18 12:10 10/19/18 12:10 Labs: Laboratory Last Values WBC 6.1 K/mm3 (4.5-11.0) 10/19/18 12:10 RBC 2.60 M/mm3 (3.65-5.03) L 10/19/18 12:10 Hgb 9.3 gm/dl (10.1-14.3) L 10/19/18 12:10 Hct 26.1 % (30.3-42.9) L 10/19/18 12:10 MCV 100 fl (79-97) H 10/19/18 12:10 MCH 36 pg (28-32) H 10/19/18 12:10 MCHC 36 % (30-34) H 10/19/18 12:10 RDW 16.6 % (13.2-15.2) H 10/19/18 12:10 Plt Count 43 K/mm3 (140-440) L 10/19/18 12:10 Lymph % (Auto) 33.0 % (13.4-35.0) 10/19/18 12:10 [place] % (Auto) 5.5 % (0.0-7.3) 10/19/18 12:10 Eos % (Auto) 0.6 % (0.0-4.3) 10/19/18 12:10 Baso % (Auto) 0.5 % (0.0-1.8) 10/19/18 12:10 Lymph # 2.0 K/mm3 (1.2-5.4) 10/19/18 12:10 [place] # 0.3 K/mm3 (0.0-0.8) 10/19/18 12:10 Eos # 0.0 K/mm3 (0.0-0.4) 10/19/18 12:10 Baso # 0.0 K/mm3 (0.0-0.1) 10/19/18 12:10 Seg Neutrophils % 60.4 % (40.0-70.0) 10/19/18 12:10 Seg Neutrophils # 3.7 K/mm3 (1.8-7.7) 10/19/18 12:10 Sodium 141 mmol/L (137-145) 10/19/18 12:10 Potassium 4.3 mmol/L (3.6-5.0) 10/19/18 12:10 Chloride 102.5 mmol/L (98-107) 10/19/18 12:10 Carbon Dioxide 21 mmol/L (22-30) L 10/19/18 12:10 22 mmol/L 10/19/18 12:10 BUN 37 mg/dL (7-17) H 10/19/18 12:10 1.3 mg/dL (0.7-1.2) H 10/19/18 12:10 Estimated GFR 41 ml/min 10/19/18 12:10 28 % 10/19/18 12:10 Glucose 384 mg/dL (65-100) H 10/19/18 12:10 POC Glucose 295 (70-105) H 10/19/18 16:26 Lactic Acid 2.60 mmol/L (0.7-2.0) H* 10/19/18 21:09 Calcium 9.5 mg/dL (8.4-10.2) 10/19/18 12:10 Magnesium 1.30 mg/dL (1.7-2.3) L 10/19/18 13:48 0.50 mg/dL (0.1-1.2) 10/19/18 12:10 AST 18 units/L (5-40) 10/19/18 12:10 ALT 19 units/L (7-56) 10/19/18 12:10 117 units/L (35-129) 10/19/18 12:10 88.0 umol/L (25-60) H 10/19/18 13:48 74 units/L (30-135) 10/19/18 13:48 6.6 g/dL (6.3-8.2) 10/19/18 12:10 4.0 g/dL (3.9-5) 10/19/18 12:10 1.5 % 10/19/18 12:10 TSH 2.780 mlU/mL (0.270-4.200) 10/19/18 13:48 Straw (Yellow) 10/19/18 13:36 Slightly-cloudy (Clear) 10/19/18 13:36 6.0 (5.0-7.0) 10/19/18 13:36 Ur Specific [place] 1.015 (1.003-1.030) 10/19/18 13:36 30 mg/dl mg/dL (Negative) 10/19/18 13:36 150 mg/dL (Negative) 10/19/18 13:36 Neg mg/dL (Negative) 10/19/18 13:36 Neg (Negative) 10/19/18 13:36 Neg (Negative) 10/19/18 13:36 Neg (Negative) 10/19/18 13:36 < 2.0 mg/dL (<2.0) 10/19/18 13:36 Ur Leukocyte Esterase Mod (Negative) 10/19/18 13:36 66.0 /HPF (0.0-6.0) H 10/19/18 13:36 17.0 /HPF (0.0-6.0) 10/19/18 13:36 1+ /HPF (Negative) 10/19/18 13:36 3+ /HPF 10/19/18 13:36 Few /HPF 10/19/18 13:36 3+ /HPF 10/19/18 13:36 Salicylates < 0.3 mg/dL (2.8-20.0) L 10/19/18 13:48 Acetaminophen < 5.0 ug/mL (10.0-30.0) L 10/19/18 13:48 Plasma/Serum Alcohol < 0.01 % (0-0.07) 10/19/18 13:48 Short CBC 10/19/18 Range/Units 12:10 WBC 6.1 (4.5-11.0) K/mm3 Hgb 9.3 L (10.1-14.3) gm/dl Hct 26.1 L (30.3-42.9) % Plt Count 43 L (140-440) K/mm3 BMP 10/19/18 12:10 Sodium 141 Potassium 4.3 Chloride 102.5 Carbon Dioxide 21 L BUN 37 H Creatinine 1.3 H Glucose 384 H Calcium 9.5 Cardiac Enzymes 10/19/18 Range/Units 13:48 Total Creatine Kinase 74 (30-135) units/L Liver Function 10/19/18 Range/Units 12:10 Total Bilirubin 0.50 (0.1-1.2) mg/dL AST 18 (5-40) units/L ALT 19 (7-56) units/L Alkaline Phosphatase 117 (35-129) units/L Albumin 4.0 (3.9-5) g/dL Urine 10/19/18 Range/Units 13:36 Urine Color Straw (Yellow) Urine pH 6.0 (5.0-7.0) Ur Specific [place] 1.015 (1.003-1.030) Urine Protein 30 mg/dl (Negative) mg/dL Urine Glucose (UA) 150 (Negative) mg/dL - Imaging and Cardiology EKG: report reviewed (sinus rhythm heart rate of 80/m no acute ST-T wave adithya nges) Chest x-ray: report reviewed (no acute findings) Imaging and Cardiology: Head CT IMPRESSION: I do not see an acute parenchymal lesion in the brain. Assessment and Plan Advance Directives: Yes (full code) VTE prophylaxis?: Chemical Plan of care discussed with patient/family: Yes - Patient Problems (1) Sepsis Current Visit: Yes Status: Acute Qualifiers: Sepsis type: sepsis due to unspecified organism Qualified Code(s): A41.9 - Sepsis, unspecified organism Plan to address problem: Check blood cultures IV Rocephin for now Lactic acid high (2) Acute encephalopathy Current Visit: Yes Status: Acute Plan to address problem: Secondary to UTI and sepsis IV fluids and IV antibiotics for now (3) Urinary tract infection Current Visit: Yes Status: Acute Qualifiers: Urinary tract infection type: acute cystitis Plan to address problem: IV Rocephin for now pending cultures (4) Diabetes mellitus Current Visit: Yes Status: Chronic Qualifiers: Diabetes mellitus type: type 2 Plan to address problem: Coverage for now Hold metformin (5) Hypertension Current Visit: Yes Status: Chronic Qualifiers: Hypertension type: essential hypertension Qualified Code(s): I10 - Essential (primary) hypertension Plan to address problem: Continue antihypertensives (6) Overactive bladder Current Visit: Yes Status: Chronic Plan to address problem: Continue oxybutynin (7) Hyperlipidemia Current Visit: Yes Status: Chronic Qualifiers: Hyperlipidemia type: mixed hyperlipidemia Qualified Code(s): E78.2 - Mixed hyperlipidemia Plan to address problem: Continue statins (8) VAZQUEZ (acute kidney injury) Current Visit: Yes Status: Acute Plan to address problem: Secondary to vasomotor nephropathy IV fluids for now Monitor BUN/creatinine (9) Breast cancer Current Visit: Yes Status: Acute Qualifiers: Laterality: unspecified laterality Plan to address problem: Continue Anastozole (10) DVT prophylaxis Current Visit: Yes Status: Acute Plan to address problem: On Lovenox and GI prophylaxis
[2018-10-19] MEDS ORDERED: ZOFRAN IV PRN (23:25)
[2018-10-19] MEDS ORDERED: REGLAN IV PRN (23:25)
[2018-10-19] MEDS ORDERED: SODIUM CHLORIDE FLUSH SYRINGE 10 ML IV PRN (23:25)
[2018-10-19] MEDS ORDERED: DILAUDID IV PRN (23:25)
[2018-10-20] MEDS: TYLENOL PO PRN ×2 (00:09→22:58)
[2018-10-20] MEDS: NACL 0.45% 1000 ML 1,000 ML IV SCH (00:14)
[2018-10-20 03:16] LABS: Hematocrit 24.9 % (30.3-42.9); Hemoglobin 8.4 gm/dl (10.1-14.3); Mean Corpuscular HGB Conc 34 % (30-34); Mean Corpuscular Volume 105 fl (79-97); Red Blood Count 2.36 M/mm3 (3.65-5.03)
[2018-10-20 03:37] LABS: Albumin 3.4 g/dL (3.9-5); Calcium 8.9 mg/dL (8.4-10.2)
[2018-10-20 03:38] LABS: Platelet Count 44 K/mm3 (140-440)
[2018-10-20] MEDS ORDERED: HCTZ PO SCH (10:00)
[2018-10-20] MEDS ORDERED: DIOVAN PO SCH (10:00)
[2018-10-20] MEDS ORDERED: HYDROCHLOROTHIAZIDE PO SCH (10:00)
[2018-10-20] MEDS ORDERED: VALSARTAN PO SCH (10:00)
[2018-10-20] MEDS: HALFPRIN EC PO SCH (10:24)
[2018-10-20] MEDS: TOPROL XL PO SCH ×2 (10:25→22:59)
[2018-10-20] MEDS: SINGULAIR PO SCH (10:28)
[2018-10-20] MEDS: ZYLOPRIM PO SCH (10:28)
[2018-10-20] MEDS: DITROPAN XL PO SCH (10:31)
[2018-10-20] MEDS: ROCEPHIN/NS 2 GM/100 ML 2 GM/100 ML BAG IV SCH (11:05)
[2018-10-20] MEDS: SODIUM CHLORIDE FLUSH SYRINGE 10 ML IV SCH ×2 (11:06→22:59)
[2018-10-20] MEDS: PEPCID IV SCH ×2 (11:17→22:59)
--- NOTE | 2018-10-20 13:02 | Progress Note ---
Assessment and Plan Assessment and plan: Altered sensorium for 2 days History of present illness: 68-year-old female with a history of breast cancer and recently diagnosed leukemia on chemotherapy brought in by her family for altered sensorium. Patient is on chemotherapy on a regular basis. Patient is being treated by Dr. KIRBY. Patient is not clear about her history of breast cancer and leukemia. Patient needs help with activities of daily living. pw ams x 2 days Patient also has a history of cerebrovascular accident hypertension asthma renal insufficiency and diabetes. Past Medical History Previous Medical History?: htn, cva, dm, gerd, ckd stage 3, OA, Asthma (no attacks since age 24), breast ca in remission Sepsis, UTI abx, fup urine cx Acute encephalopathy rx underlying causes Diabetes mellitus Coverage for now Hold metformin Hypertension Continue antihypertensives Overactive bladder Continue oxybutynin Hyperlipidemia Continue statins VAZQUEZ (acute kidney injury) Secondary to vasomotor nephropathy, improving on IVF Breast cancer Continue Anastozole DVT prophylaxis On Lovenox and GI prophylaxis History Interval history: Review of systems Constitutional: No fevers, no malaise, no joint pains CVS: No chest pain, no orthopnea, no dyspnea on exertion, no pedal edema GI: No abdominal pain, no diarrhea, no vomiting, no constipation Respiratory: no wheezing, no coughing Hospitalist Physical - Physical exam Narrative exam: General.: Appears well, no distress, nontoxic HEENT: Moist mucous membranes, extraocular muscles intact, no lymphadenopathy Neck: supple Cardiac: S1-S2 heard Lungs: clear to auscultation bilaterally Abdomen: soft , nontender, nondistended, bowel sounds positive Extremities: no edema clubbing or cyanosis Skin: no rash or lesions Neurologic: no gross focal deficits Psych: calm, and cooperative - Constitutional Vitals: Temp Pulse Resp BP Pulse Ox 98.6 F 97 H 18 180/81 97 10/20/18 08:25 10/20/18 10:25 10/20/18 08:25 10/20/18 10:25 10/20/18 08:25 General appearance: Present: no acute distress, well-nourished Results - Labs CBC & Chem 7: 10/20/18 02:39 10/20/18 02:39 Labs: Laboratory Last Values WBC 5.2 K/mm3 (4.5-11.0) 10/20/18 02:39 RBC 2.36 M/mm3 (3.65-5.03) L 10/20/18 02:39 Hgb 8.4 gm/dl (10.1-14.3) L 10/20/18 02:39 Hct 24.9 % (30.3-42.9) L 10/20/18 02:39 MCV 105 fl (79-97) H 10/20/18 02:39 MCH 35 pg (28-32) H 10/20/18 02:39 MCHC 34 % (30-34) 10/20/18 02:39 RDW 17.0 % (13.2-15.2) H 10/20/18 02:39 Plt Count 44 K/mm3 (140-440) L 10/20/18 02:39 Lymph % (Auto) [employer] 10/20/18 02:39 [place] % (Auto) [employer] 10/20/18 02:39 Eos % (Auto) [employer] 10/20/18 02:39 Baso % (Auto) [employer] 10/20/18 02:39 Lymph # [employer] 10/20/18 02:39 [place] # [employer] 10/20/18 02:39 Eos # [employer] 10/20/18 02:39 Baso # [employer] 10/20/18 02:39 Seg Neutrophils % [employer] 10/20/18 02:39 Seg Neutrophils # [employer] 10/20/18 02:39 Sodium 139 mmol/L (137-145) 10/20/18 02:39 Potassium 4.0 mmol/L (3.6-5.0) 10/20/18 02:39 Chloride 103.8 mmol/L (98-107) 10/20/18 02:39 Carbon Dioxide 21 mmol/L (22-30) L 10/20/18 02:39 18 mmol/L 10/20/18 02:39 BUN 33 mg/dL (7-17) H 10/20/18 02:39 1.2 mg/dL (0.7-1.2) 10/20/18 02:39 Estimated GFR 45 ml/min 10/20/18 02:39 28 % 10/20/18 02:39 Glucose 341 mg/dL (65-100) H 10/20/18 02:39 POC Glucose 295 (70-105) H 10/19/18 16:26 7.5 % (4-6) H 10/19/18 12:10 Lactic Acid 1.80 mmol/L (0.7-2.0) 10/20/18 02:39 Calcium 8.9 mg/dL (8.4-10.2) 10/20/18 02:39 Magnesium 1.30 mg/dL (1.7-2.3) L 10/19/18 13:48 0.40 mg/dL (0.1-1.2) 10/20/18 02:39 AST 22 units/L (5-40) 10/20/18 02:39 ALT 16 units/L (7-56) 10/20/18 02:39 94 units/L (35-129) 10/20/18 02:39 88.0 umol/L (25-60) H 10/19/18 13:48 74 units/L (30-135) 10/19/18 13:48 5.6 g/dL (6.3-8.2) L 10/20/18 02:39 3.4 g/dL (3.9-5) L 10/20/18 02:39 1.5 % 10/20/18 02:39 TSH 2.780 mlU/mL (0.270-4.200) 10/19/18 13:48 Straw (Yellow) 10/19/18 13:36 Slightly-cloudy (Clear) 10/19/18 13:36 6.0 (5.0-7.0) 10/19/18 13:36 Ur Specific [place] 1.015 (1.003-1.030) 10/19/18 13:36 30 mg/dl mg/dL (Negative) 10/19/18 13:36 150 mg/dL (Negative) 10/19/18 13:36 Neg mg/dL (Negative) 10/19/18 13:36 Neg (Negative) 10/19/18 13:36 Neg (Negative) 10/19/18 13:36 Neg (Negative) 10/19/18 13:36 < 2.0 mg/dL (<2.0) 10/19/18 13:36 Ur Leukocyte Esterase Mod (Negative) 10/19/18 13:36 66.0 /HPF (0.0-6.0) H 10/19/18 13:36 17.0 /HPF (0.0-6.0) 10/19/18 13:36 1+ /HPF (Negative) 10/19/18 13:36 3+ /HPF 10/19/18 13:36 Few /HPF 10/19/18 13:36 3+ /HPF 10/19/18 13:36 Salicylates < 0.3 mg/dL (2.8-20.0) L 10/19/18 13:48 Acetaminophen < 5.0 ug/mL (10.0-30.0) L 10/19/18 13:48 Plasma/Serum Alcohol < 0.01 % (0-0.07) 10/19/18 13:48 Active Medications - Current Medications Current Medications: Generic Name Dose Route Start Last Admin Trade Name Freq PRN Reason Stop Dose Admin Acetaminophen 650 mg 10/19/18 23:25 10/20/18 00:09 Tylenol PO 650 mg Q4H PRN Administration Pain MILD(1-3)/Fever >100.5/REYNA Allopurinol 100 mg 10/20/18 10:00 10/20/18 10:28 Zyloprim PO 100 mg QDAY JEREMÍAS Administration Aspirin 81 mg 10/20/18 10:00 10/20/18 10:24 Halfprin Ec PO 81 mg QDAY JEREMÍAS Administration Atorvastatin Calcium 40 mg 10/20/18 18:00 Lipitor PO QPM JEREMÍAS Famotidine 20 mg 10/20/18 10:00 10/20/18 11:17 Pepcid IV 20 mg BID JEREMÍAS Administration Hydrochlorothiazide 25 mg 10/20/18 12:34 Hctz PO DAILY JEREMÍAS Hydromorphone HCl 0.5 mg 10/19/18 23:25 Dilaudid IV Q3H PRN Pain , Severe (7-10) Sodium Chloride 1,000 mls @ 75 mls/hr 10/19/18 23:45 10/20/18 00:14 Nacl 0.45% 1000 Ml IV 75 mls/hr DIRECT JEREMÍAS Administration Ceftriaxone Sodium 2 gm in 100 mls @ 200 mls/hr 10/20/18 10:00 10/20/18 11:05 Rocephin/Ns 2 Gm/100 Ml IV 200 mls/hr Q24HR JEREMÍAS Administration Protocol Ibuprofen 600 mg 10/19/18 23:25 Ibuprofen PO Q6H PRN Pain, Mild (1-3) Metoclopramide HCl 10 mg 10/19/18 23:25 Reglan IV Q6H PRN Nausea And Vomiting Metoprolol Succinate 50 mg 10/20/18 10:00 10/20/18 10:25 Toprol Xl PO 50 mg BID JEREMÍAS Administration Miscellaneous Medication 1 mg 10/20/18 10:00 Anastrozole [Arimidex] PO QDAY JEREMÍAS Montelukast Sodium 10 mg 10/20/18 10:00 10/20/18 10:28 Singulair PO 10 mg QDAY JEREMÍAS Administration Ondansetron HCl 4 mg 10/19/18 23:25 Zofran IV Q8H PRN Nausea And Vomiting Oxybutynin Chloride 10 mg 10/20/18 10:00 10/20/18 10:31 Ditropan Xl PO 10 mg QDAY JEREMÍAS Administration Sodium Chloride 10 ml 10/20/18 10:00 10/20/18 11:06 Sodium Chloride Flush Syringe 10 Ml IV 10 ml BID JEREMÍAS Administration Sodium Chloride 10 ml 10/19/18 23:25 10/19/18 23:50 Sodium Chloride Flush Syringe 10 Ml IV 10 ml PRN PRN Administration LINE FLUSH Valsartan 160 mg 10/20/18 22:00 Diovan PO BID JEREMÍAS
[2018-10-20] MEDS ORDERED: NACL 0.9% 1000 ML 1,000 ML ONE (14:06)
[2018-10-20] MEDS: HCTZ PO SCH (16:12)
[2018-10-20] MEDS: NON-FORMULARY (Anastrozole [Arimidex] 1 MG) PO SCH (19:26)
[2018-10-20] MEDS: DIOVAN PO SCH (23:36)
[2018-10-21] MEDS: NACL 0.45% 1000 ML 1,000 ML IV SCH (05:03)
--- NOTE | 2018-10-21 06:36 | Event Note ---
Date: 10/21/18 043.252 h/o breastr ca - on anastrazole h/o leukemia - ? details unclear - - d/w dr egan = pt got rituxan and vincrsitine ' low plt - likely chemo related -
--- NOTE | 2018-10-21 08:08 | Consultation ---
REFERRED BY: Dr. Gold. REASON FOR CONSULTATION: History of leukemia and history of breast cancer. HISTORY OF PRESENT ILLNESS: I saw the patient, a 68-year-old female with history of breast cancer diagnosed in 2014 for the breast cancer. The patient is on anastrozole and follows with Dr. Crum. The patient also has history of leukemia for which she goes to [place] and Dr. Crum. The patient at this time is on Rituxan and vincristine. The patient also has been getting intrathecal chemotherapy at [place], the exact details of this leukemia is not clear. The patient does not have lymphoma. As per the information available, the patient did receive R-CVP based chemotherapy in the past (further details pending). The patient came to the hospital because of altered sensorium. As per the information, the patient is being treated for infection. The patient also has a history of CVA, hypertension, asthma, renal insufficiency and diabetes. I spoke to Dr. Crum about the patient before the Rituxan and vincristine dose last week. The patient has had chemotherapy about 4 months ago. After that, there was a gap due to hospitalization. The patient's son and granddaughter were present in the room. At this time, no headache, no visual disturbances, no ear discharge, no chest pain, no palpitation, no abdominal pain, no vomiting, no diarrhea, no dysuria. The patient's blood count had anemia and low platelets as per Dr. Crum, the patient had cytopenia in the past also. PAST MEDICAL HISTORY: As above. PAST SURGICAL HISTORY: Port placement. SOCIAL HISTORY: Nonsmoker. FAMILY HISTORY: Hypertension. HOME MEDICATIONS: Include allopurinol, atorvastatin, metoprolol, oxybutynin, valsartan, HCTZ, metformin, anastrozole, aspirin, glimepiride, Montelukast. PHYSICAL EXAMINATION: VITAL SIGNS: Temperature 97.3, pulse 71, respirations 20, BP 164/81. HEENT: Pallor present, no icterus. NECK: No neck lymph nodes. HEART: S1, S2. LUNGS: Clear to auscultation. ABDOMEN: Soft. Left-sided port present. EXTREMITIES: No calf tenderness. NEUROLOGIC: Alert, awake, answers simple questions appropriately. As per the family members, the patient walks with a roller walker. RADIOLOGY: CT head was done, this was negative for mets. ASSESSMENT AND PLAN: 1. Breast cancer, on anastrozole, diagnosed in 2014, follows with Dr. Crum, details of this is not clear. As per Dr. Crum, the patient's breast cancer is in remission. 2. Leukemia, details not clear. The patient goes to [place]. This was diagnosed by bone marrow biopsy more than a year ago. The patient has received Rituxan based chemotherapy and now she is on maintenance. She had received one in May and now again in September. It appears the patient received Rituxan and vincristine. 3. The patient has thrombocytopenia. As per Dr. Crum, the patient gets cytopenia with chemotherapy and the patient will follow with Dr. Crum for same. We will do deficiency investigation. Port present. She is being treated for urinary tract infection. 4. Anemia. I will investigate for deficiency, most likely secondary to chemotherapy or her leukemia disorder. The patient goes to [place] for same. 5. History of cerebrovascular accident. 6. History of diabetes. 7. History of asthma. 8. History of renal insufficiency. 9. Came with confusion, now has improved. The patient is on antibiotics. 10. History of hypertension. I will follow the patient during inpatient stay. JOB# [id number] NM/NTS
[2018-10-21 08:28] LABS: Iron 91 ug/dL (37-170); Total Iron Binding Capacity 244 mcg/dL (250-450)
--- NOTE | 2018-10-21 10:01 | Consultation ---
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 Reports urinary frequency for 3 days. Denies SOB, cough, abdominal pain. Of note, she was initially admitted to [facility] on 03/01/2018 for sepsis due to Enterococcus faecalis bacteremia from port infection which was removed, discharged on 03/07/18 on Ampicillin continuous infusion until 03/18/18. She then presented with chills at oncologist office on 04/03/18, sent to [facility] ED, blood cultures were drawn and were positive for Enterococus faecalis, readmitted. TTE / BRIANA showed no vegetation. Discharged again on Ampicillin 12gms continuous infusion for 3 weeks until 04/29/18. She had a new port was 05/30/2018. In the ED, temp 98, HR 74, R16, BP 193/92. WBC 6.1. Hg 9.3. Plat 43. Creat 1.3. UA 66 wbc, mod LE. Blood culture 10/19/2018 CoNS 1 of [address] head unremarkable. ID consulted for bacteremia. Review of Systems: General: no fever, chills,+generalized weakness Cutaneous: no rash, pruritus Head: no headaches or injury Eyes: no changes in vision, eye pain, double vision Ears: no ear pain, ear discharge, ringing or hearing loss Nose: no nose bleeding, stuffiness Mouth & throat: no bleeding gums, no horseness, no dental problems, or swollen glands Neck: no pain, node enlargement/lumps, tyroid enlargement or tenderness Respiratory: no SOB, no cough, no PATRICK, wheezing, sputum, hemoptysis, pleuritic chest pain Cardiovascular: no chest pain, leg edema, cyanosis, PATRICK, orthopnea Musculoskeletal: no edema Gastrointestinal: no nausea, no vomiting, no hematemesis, diarrhea, constipation, melena, bright red blood in stools, fecal incontinence, jaundice Genitourinary/Reproductive: no frequent urination, dysuria, hematuria, incontinence Neurogical: +confusion, no seizures, no headaches, no weakness, no paresthesias, no loss of speech or vision; no memory loss, no vertigo, no tremors, no numbness Psychiatric: stable mood; no excessive anxiety, sadness or moodiness Medications and Allergies Allergies Allergy/AdvReac Type Severity Reaction Status Date / Time No Known Allergies Allergy Verified 02/14/15 14:01 Home Medications Medication Instructions Recorded Confirmed Last Taken Type Allopurinol [Zyloprim] 300 mg PO QDAY 12/16/14 10/19/18 10/18/18 History AtorvaSTATin [Lipitor] 40 mg PO QPM 12/16/14 10/19/18 10/18/18 History Metoprolol Xl [Metoprolol 50 mg PO BID 12/16/14 10/19/18 10/18/18 History SUCCINATE ER TAB] Oxybutynin Chloride [Oxybutynin 10 mg PO QDAY 12/16/14 10/19/18 10/18/18 History Chloride ER] Valsartan/Hydrochlorothiazide 12.5 - 160 each PO DAILY 08/31/17 10/19/18 09/29/18 History [Valsartan-Hctz 160-12.5 mg Tab] metFORMIN [Glucophage] 500 mg PO BID 08/31/17 10/19/18 10/18/18 History Anastrozole [Arimidex] 1 mg PO QDAY 10/19/18 10/19/18 10/18/18 History Aspirin [Adult Aspirin] 81 mg PO QDAY 10/19/18 10/19/18 10/18/18 History Glimepiride [Amaryl] 4 mg PO QDAY 10/19/18 10/19/18 10/18/18 History Montelukast [Singulair] 10 mg PO QDAY 10/19/18 10/19/18 10/18/18 History Active Meds: Active Medications Acetaminophen (Tylenol) 650 mg PO Q4H PRN PRN Reason: Pain MILD(1-3)/Fever >100.5/REYNA Last Admin: 10/20/18 22:58 Dose: 650 mg Documented by: Allopurinol (Zyloprim) 100 mg PO QDAY [facility] Last Admin: 10/20/18 10:28 Dose: 100 mg Documented by: Aspirin (Halfprin Ec) 81 mg PO QDAY [facility] Last Admin: 10/20/18 10:24 Dose: 81 mg Documented by: Atorvastatin Calcium (Lipitor) 40 mg PO QPM [facility] Famotidine (Pepcid) 20 mg IV BID [facility] Last Admin: 10/20/18 22:59 Dose: 20 mg Documented by: Hydrochlorothiazide (Hctz) 25 mg PO DAILY [facility] Last Admin: 10/20/18 16:12 Dose: 25 mg Documented by: Hydromorphone HCl (Dilaudid) 0.5 mg IV Q3H PRN PRN Reason: Pain , Severe (7-10) Sodium Chloride (Nacl 0.45% 1000 Ml) 1,000 mls @ 75 mls/hr IV DIRECT [facility] Last Admin: 10/21/18 05:03 Dose: 75 mls/hr Documented by: Ceftriaxone Sodium (Rocephin/Ns 2 Gm/100 Ml) 2 gm in 100 mls @ 200 mls/hr IV Q24HR [facility]; Protocol Last Admin: 10/20/18 11:05 Dose: 200 mls/hr Documented by: Ibuprofen (Ibuprofen) 600 mg PO Q6H PRN PRN Reason: Pain, Mild (1-3) Metoclopramide HCl (Reglan) 10 mg IV Q6H PRN PRN Reason: Nausea And Vomiting Metoprolol Succinate (Toprol Xl) 50 mg PO BID [facility] Last Admin: 10/20/18 22:59 Dose: 50 mg Documented by: Miscellaneous Medication (Anastrozole [Arimidex]) 1 mg PO QDAY [facility] Last Admin: 10/20/18 19:26 Dose: Not Given Documented by: Montelukast Sodium (Singulair) 10 mg PO QDAY [facility] Last Admin: 10/20/18 10:28 Dose: 10 mg Documented by: Ondansetron HCl (Zofran) 4 mg IV Q8H PRN PRN Reason: Nausea And Vomiting Oxybutynin Chloride (Ditropan Xl) 10 mg PO QDAY [facility] Last Admin: 10/20/18 10:31 Dose: 10 mg Documented by: Sodium Chloride (Sodium Chloride Flush Syringe 10 Ml) 10 ml IV BID [facility] Last Admin: 10/20/18 22:59 Dose: 10 ml Documented by: Sodium Chloride (Sodium Chloride Flush Syringe 10 Ml) 10 ml IV PRN PRN PRN Reason: LINE FLUSH Last Admin: 10/19/18 23:50 Dose: 10 ml Documented by: Valsartan (Diovan) 160 mg PO BID JEREMÍAS Last Admin: 10/20/18 23:36 Dose: 160 mg Documented by: Physical Examination - Physical Exam Narrative exam: General appearance: Alert in NAD Eyes: anicteric sclerae, moist conjunctivae; no lid-lag; PERRLA HENT: Atraumatic; oropharynx clear with moist mucous membranes and no mucosal ulcerations/no oral thrush; normal hard and soft palate. Lungs: CTA, with normal respiratory effort and no intercostal retractions, left sided port no erythema CV: RRR no murmur Abdomen: Soft, non-tender; no masses or hepatosplenomegaly Extremities: +gasper leg edema, no cyanosis Skin: No rash. Psych: Appropriate affect, alert and oriented to person, place and time. Neuro: alert and oriented x 3. Moving all extermities - Constitutional Vitals: Vital Signs Temp Pulse Resp BP Pulse Ox 98.8 F 72 20 147/70 95 10/21/18 07:45 10/21/18 07:45 10/21/18 07:45 10/21/18 07:45 10/21/18 07:45 Temperature -Last 24 Hours Temperature 98.8 F Temperature 97.3 F Temperature 98.8 F Temperature 98.8 F Results - Labs CBC & Chem 7: 10/20/18 02:39 10/20/18 02:39 Labs: Abnormal lab results 10/21/18 Range/Units 07:21 TIBC 244 L (250-450) mcg/dL Assessment and Plan Cultures: Blood culture 10/19/2018 CoNS 1 of 4 bottles. 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 2) UTI: in immunocompromised host. UA 66 wbc, mod LE. 3) CoNS in blood cultures: likely contaminant. Blood culture 10/19/2018 CoNS 1 of 4 bottles. She had a new port was 05/30/2018. 4) History of Enterococcus faecalis bacteremia from port infection which was removed, discharged on 03/07/18 on Ampicillin continuous infusion until 03/18/18. She then presented with chills at oncologist office on 04/03/18, sent to [facility] ED, blood cultures were drawn and were positive for Enterococus faecalis, readmitted. TTE / BRIANA showed no vegetation. Discharged again on Ampicillin 12gms continuous infusion for 3 weeks until 04/29/18. 5) Thrombocytopenia: from chemo Recommendations: continue ceftriaxone 1 gm IV qday repeat blood culture obtain urine culture renal US if clinically better ok to d/c home on levaquin 750 mg po qday total 7 days Will follow. Kelsi Shaffer MD Infectious Diseases [facility] ([facility] M [phone] O [phone]
[2018-10-21] MEDS: DIOVAN PO SCH ×2 (10:34→22:28)
[2018-10-21] MEDS: HCTZ PO SCH (10:37)
[2018-10-21] MEDS: DITROPAN XL PO SCH (10:40)
[2018-10-21] MEDS: SINGULAIR PO SCH (10:41)
[2018-10-21] MEDS: TOPROL XL PO SCH ×2 (10:41→22:28)
[2018-10-21] MEDS: ZYLOPRIM PO SCH (10:42)
[2018-10-21] MEDS: HALFPRIN EC PO SCH (10:42)
[2018-10-21] MEDS: PEPCID IV SCH ×2 (10:42→22:28)
[2018-10-21] MEDS: ROCEPHIN/NS 2 GM/100 ML 2 GM/100 ML BAG IV SCH (10:48)
[2018-10-21] MEDS: SODIUM CHLORIDE FLUSH SYRINGE 10 ML IV SCH ×2 (10:49→22:29)
[2018-10-21] MEDS: NON-FORMULARY (Anastrozole [Arimidex] 1 MG) PO SCH (11:26)
--- NOTE | 2018-10-21 15:08 | Progress Note ---
Assessment and Plan Assessment and plan: Altered sensorium for 2 days History of present illness: 68-year-old female with a history of breast cancer and recently diagnosed leukemia on chemotherapy brought in by her family for altered sensorium. Patient is on chemotherapy on a regular basis. Patient is being treated by Dr. KIRBY. Patient is not clear about her history of breast cancer and leukemia. Patient needs help with activities of daily living. pw ams x 2 days Patient also has a history of cerebrovascular accident hypertension asthma renal insufficiency and diabetes. Past Medical History Previous Medical History?: htn, cva, dm, gerd, ckd stage 3, OA, Asthma (no attacks since age 24), breast ca in remission Sepsis, UTI abx, fup urine cx [place] bacteremia has a port, ID consult Acute encephalopathy rx underlying causes Diabetes mellitus Coverage for now Hold metformin Hypertension Continue antihypertensives Overactive bladder Continue oxybutynin Hyperlipidemia Continue statins VAZQUEZ (acute kidney injury) Secondary to vasomotor nephropathy, improving on IVF Breast cancer Continue Anastozole DVT prophylaxis On Lovenox and GI prophylaxis Hospitalist Physical - Constitutional Vitals: Temp Pulse Resp BP Pulse Ox 98.8 F 74 20 158/75 95 10/21/18 07:45 10/21/18 10:41 10/21/18 07:45 10/21/18 10:41 10/21/18 07:45 General appearance: Present: no acute distress, well-nourished Results - Labs CBC & Chem 7: 10/20/18 02:39 10/20/18 02:39 Labs: Laboratory Last Values WBC 5.2 K/mm3 (4.5-11.0) 10/20/18 02:39 RBC 2.36 M/mm3 (3.65-5.03) L 10/20/18 02:39 Hgb 8.4 gm/dl (10.1-14.3) L 10/20/18 02:39 Hct 24.9 % (30.3-42.9) L 10/20/18 02:39 MCV 105 fl (79-97) H 10/20/18 02:39 MCH 35 pg (28-32) H 10/20/18 02:39 MCHC 34 % (30-34) 10/20/18 02:39 RDW 17.0 % (13.2-15.2) H 10/20/18 02:39 Plt Count 44 K/mm3 (140-440) L 10/20/18 02:39 Lymph % (Auto) Melter Operator 10/20/18 02:39 [place] % (Auto) Melter Operator 10/20/18 02:39 Eos % (Auto) Melter Operator 10/20/18 02:39 Baso % (Auto) Melter Operator 10/20/18 02:39 Lymph # Melter Operator 10/20/18 02:39 [place] # Melter Operator 10/20/18 02:39 Eos # Melter Operator 10/20/18 02:39 Baso # Melter Operator 10/20/18 02:39 Seg Neutrophils % Melter Operator 10/20/18 02:39 Seg Neutrophils # Melter Operator 10/20/18 02:39 Sodium 139 mmol/L (137-145) 10/20/18 02:39 Potassium 4.0 mmol/L (3.6-5.0) 10/20/18 02:39 Chloride 103.8 mmol/L (98-107) 10/20/18 02:39 Carbon Dioxide 21 mmol/L (22-30) L 10/20/18 02:39 18 mmol/L 10/20/18 02:39 BUN 33 mg/dL (7-17) H 10/20/18 02:39 1.2 mg/dL (0.7-1.2) 10/20/18 02:39 Estimated GFR 45 ml/min 10/20/18 02:39 28 % 10/20/18 02:39 Glucose 341 mg/dL (65-100) H 10/20/18 02:39 POC Glucose 295 (70-105) H 10/19/18 16:26 7.5 % (4-6) H 10/19/18 12:10 Lactic Acid 1.80 mmol/L (0.7-2.0) 10/20/18 02:39 Calcium 8.9 mg/dL (8.4-10.2) 10/20/18 02:39 Magnesium 1.30 mg/dL (1.7-2.3) L 10/19/18 13:48 Iron 91 ug/dL (37-170) 10/21/18 07:21 TIBC 244 mcg/dL (250-450) L 10/21/18 07:21 267.5 ng/mL (13.0-400.0) 10/21/18 07:21 0.40 mg/dL (0.1-1.2) 10/20/18 02:39 AST 22 units/L (5-40) 10/20/18 02:39 ALT 16 units/L (7-56) 10/20/18 02:39 94 units/L (35-129) 10/20/18 02:39 88.0 umol/L (25-60) H 10/19/18 13:48 74 units/L (30-135) 10/19/18 13:48 5.6 g/dL (6.3-8.2) L 10/20/18 02:39 3.4 g/dL (3.9-5) L 10/20/18 02:39 1.5 % 10/20/18 02:39 Vitamin B12 592.7 pg/mL (211-911) 10/21/18 07:21 9.95 ng/mL (7.3-26.0) 10/21/18 07:21 TSH 2.780 mlU/mL (0.270-4.200) 10/19/18 13:48 Straw (Yellow) 10/19/18 13:36 Slightly-cloudy (Clear) 10/19/18 13:36 6.0 (5.0-7.0) 10/19/18 13:36 Ur Specific [place] 1.015 (1.003-1.030) 10/19/18 13:36 30 mg/dl mg/dL (Negative) 10/19/18 13:36 150 mg/dL (Negative) 10/19/18 13:36 Neg mg/dL (Negative) 10/19/18 13:36 Neg (Negative) 10/19/18 13:36 Neg (Negative) 10/19/18 13:36 Neg (Negative) 10/19/18 13:36 < 2.0 mg/dL (<2.0) 10/19/18 13:36 Ur Leukocyte Esterase Mod (Negative) 10/19/18 13:36 66.0 /HPF (0.0-6.0) H 10/19/18 13:36 17.0 /HPF (0.0-6.0) 10/19/18 13:36 1+ /HPF (Negative) 10/19/18 13:36 3+ /HPF 10/19/18 13:36 Few /HPF 10/19/18 13:36 3+ /HPF 10/19/18 13:36 Salicylates < 0.3 mg/dL (2.8-20.0) L 10/19/18 13:48 Acetaminophen < 5.0 ug/mL (10.0-30.0) L 10/19/18 13:48 Plasma/Serum Alcohol < 0.01 % (0-0.07) 10/19/18 13:48 Active Medications - Current Medications Current Medications: Generic Name Dose Route Start Last Admin Trade Name Freq PRN Reason Stop Dose Admin Acetaminophen 650 mg 10/19/18 23:25 10/20/18 22:58 Tylenol PO 650 mg Q4H PRN Administration Pain MILD(1-3)/Fever >100.5/REYNA Allopurinol 100 mg 10/20/18 10:00 10/21/18 10:42 Zyloprim PO 100 mg QDAY JEREMÍAS Administration Aspirin 81 mg 10/20/18 10:00 10/21/18 10:42 Halfprin Ec PO 81 mg QDAY JEREMÍAS Administration Atorvastatin Calcium 40 mg 10/20/18 18:00 Lipitor PO QPM JEREMÍAS Famotidine 20 mg 10/20/18 10:00 10/21/18 10:42 Pepcid IV 20 mg BID JEREMÍAS Administration Hydrochlorothiazide 25 mg 10/20/18 13:30 10/21/18 10:37 Hctz PO 12.5 mg DAILY JEREMÍAS Administration Hydromorphone HCl 0.5 mg 10/19/18 23:25 Dilaudid IV Q3H PRN Pain , Severe (7-10) Sodium Chloride 1,000 mls @ 75 mls/hr 10/19/18 23:45 10/21/18 05:03 Nacl 0.45% 1000 Ml IV 75 mls/hr DIRECT JEREMÍAS Administration Ceftriaxone Sodium 2 gm in 100 mls @ 200 mls/hr 10/20/18 10:00 10/21/18 10:48 Rocephin/Ns 2 Gm/100 Ml IV 200 mls/hr Q24HR JEREMÍAS Administration Protocol Ibuprofen 600 mg 10/19/18 23:25 Ibuprofen PO Q6H PRN Pain, Mild (1-3) Metoclopramide HCl 10 mg 10/19/18 23:25 Reglan IV Q6H PRN Nausea And Vomiting Metoprolol Succinate 50 mg 10/20/18 10:00 10/21/18 10:41 Toprol Xl PO 50 mg BID JEREMÍAS Administration Miscellaneous Medication 1 mg 10/20/18 10:00 10/21/18 11:26 Anastrozole [Arimidex] PO 1 mg QDAY JEREMÍAS Administration Montelukast Sodium 10 mg 10/20/18 10:00 10/21/18 10:41 Singulair PO 10 mg QDAY JEREMÍAS Administration Ondansetron HCl 4 mg 10/19/18 23:25 Zofran IV Q8H PRN Nausea And Vomiting Oxybutynin Chloride 10 mg 10/20/18 10:00 10/21/18 10:40 Ditropan Xl PO 10 mg QDAY JEREMÍAS Administration Sodium Chloride 10 ml 10/20/18 10:00 10/21/18 10:49 Sodium Chloride Flush Syringe 10 Ml IV 10 ml BID JEREMÍAS Administration Sodium Chloride 10 ml 10/19/18 23:25 10/19/18 23:50 Sodium Chloride Flush Syringe 10 Ml IV 10 ml PRN PRN Administration LINE FLUSH Valsartan 160 mg 10/20/18 22:00 10/21/18 10:34 Diovan PO 160 mg BID JEREMÍAS Administration Nutrition/Malnutrition Assess - Dietary Evaluation Nutrition/Malnutrition Findings: Nutrition Notes Start: 10/20/18 14:3 9 Freq: Status: Active Protocol: Document 10/20/18 14:40 GERALDO (Rec: 10/20/18 14:47 GERALDO [id number] [email or web address]) Nutrition Notes Need for Assessment generated from: MD Order,orthopedic coder Initial or Follow up Assessment Current Diagnosis Acute Kidney Injury,Diabetes, Sepsis,Hypertension,Stroke, Hyperlipidemia Other Pertinent Diagnosis AMS, UTI, Breast CA, leukemia (on chemo) Current Diet Cardiac/Consistent CHO Labs/Tests BUN 33 A1C 7.5 Pertinent Medications Reviewed Height 5 ft 9 in Weight 98.43 kg [place] Body Weight (kg) 65.90 BMI 32.0 Weight Status Obese Subjective/Other Information RD consulted for decreased appetite. Pt also screened for hx of receiving NTR support. Pt with AMS for past two days. Pt's family member says pt has poor appetite at this time. Amenable to ONS. Burn Absent Trauma Absent #1 Nutrition Diagnosis Inadequate oral intake Etiology on chemo, AMS As Evidenced by Signs and Symptoms pt with poor appetite and PO intake at this time Is patient on ventilator? No Is Patient Ambulatory and/or Out of Bed No REE-([facility]) 1911.564 Kcal/Kg value to use for calculation 19 Approximate Energy Requirements Using 1870 kcal/Kg Calculation Used for Recommendations Kcal/kg Additional Notes Pro needs 1-1.2g/kg adjBW: 82- 99g/day Fluid needs 1ml/kcal Nutrition Intervention Change Diet Order: Continue current diet order Add Supplement/Snack (indicate name/kcal Glucerna TID (chocolate) /protein ) Provides kCal: 660 Provides Protein (gm) 30 Goal #1 PO intake of meals plus ONS to meet at least 75% energy and pro needs Anticipated Discharge Needs: CHO-controlled diet plus ONS 1 -2 times daily if PO intake remains suboptimal Follow-Up By: 10/23/18 Additional Comments F/U: intakes
[2018-10-21] MEDS: IBUPROFEN PO PRN (22:29)
--- NOTE | 2018-10-22 08:01 | Hem/Onc Progress Note ---
Assessment and Plan 1. Breast cancer, on anastrozole, diagnosed in 2014, follows with Dr. Crum, As per Dr. Crum, the patient's breast cancer is in remission. 2. Leukemia, b cell ALL. The patient goes to [facility]. This was diagnosed by bone marrow biopsy more than a year ago. The patient has received Rituxan based chemotherapy and now she is on maintenance. She had received one in May and now again in September. It appears the patient received Rituxan and vincristine. 3. The patient has thrombocytopenia. As per Dr. Crum, the patient gets cytopenia with chemotherapy and the patient will follow with Dr. Crum for same. deficiency investigation. Port present. She is being treated for urinary tract infection. 4. Anemia. deficiency Ix, most likely secondary to chemotherapy or her leukemia disorder. The patient goes to [facility] for same. 5. History of cerebrovascular accident. 6. History of diabetes. 7. History of asthma. 8. History of renal insufficiency. 9. Came with confusion. The patient is on antibiotics. 10. History of hypertension. 10/22/2018 d/w dr Marj Gastelum - [place] - pt had low plt in may 2018 - in 80s d/w dr Sampson [facility] - pt is being treated for UTI - there is some improvement option of Lumbar puncture after plt transfusion to see if there is a leukemic process - Patient Problems (1) Acute leukemia Current Visit: Yes Status: Acute Subjective Date of service: 10/22/18 Principal diagnosis: b cell ALL, low plt Interval history: as per sister - pt confused at night Objective - Exam Narrative Exam: General appearance: Awake. No acute distress Eyes: anicteric sclerae, moist conjunctivae; HENT: Atraumatic; oropharynx clear with moist mucous membranes and no mucosal ulcerations/no oral thrush; normal hard and soft palate. Lungs: CTA, with normal respiratory effort and no intercostal retractions, left sided port no erythema CV: RRR no murmur Abdomen: Soft, non-tender; no masses or hepatosplenomegaly Extremities: +gasper leg edema, no cyanosis Skin: No rash. Psych: Appropriate affect, alert and oriented to person, place and time. Neuro: alert and oriented x 3. Moving all extremities - Constitutional Vitals: Last Vital Signs Temp 98.3 F 10/22/18 04:03 Pulse 56 L 10/22/18 04:03 Resp 20 10/22/18 04:03 BP 134/64 10/22/18 04:03 Pulse Ox 98 10/22/18 04:03 - Labs Lab Results: Laboratory Results - last 24 hr 10/21/18 10/21/18 10/21/18 07:21 07:21 07:21 Iron 91 TIBC 244 L Ferritin 267.5 Vitamin B12 Folate 9.95 10/21/18 07:21 Iron TIBC Ferritin Vitamin B12 592.7 Folate Medications & Allergies - Medications Allergies/Adverse Reactions: Allergies No Known Allergies Allergy (Verified 02/14/15 14:01) Home Medications: Home Medications Medication Instructions Recorded Confirmed Last Taken Type Allopurinol [Zyloprim] 300 mg PO QDAY 12/16/14 10/19/18 10/18/18 History AtorvaSTATin [Lipitor] 40 mg PO QPM 12/16/14 10/19/18 10/18/18 History Metoprolol Xl [Metoprolol 50 mg PO BID 12/16/14 10/19/18 10/18/18 History SUCCINATE ER TAB] Oxybutynin Chloride [Oxybutynin 10 mg PO QDAY 12/16/14 10/19/18 10/18/18 History Chloride ER] Valsartan/Hydrochlorothiazide 12.5 - 160 each PO DAILY 08/31/17 10/19/18 09/29/18 History [Valsartan-Hctz 160-12.5 mg Tab] metFORMIN [Glucophage] 500 mg PO BID 08/31/17 10/19/18 10/18/18 History Anastrozole [Arimidex] 1 mg PO QDAY 10/19/18 10/19/18 10/18/18 History Aspirin [Adult Aspirin] 81 mg PO QDAY 10/19/18 10/19/18 10/18/18 History Glimepiride [Amaryl] 4 mg PO QDAY 10/19/18 10/19/18 10/18/18 History Montelukast [Singulair] 10 mg PO QDAY 10/19/18 10/19/18 10/18/18 History Active Medications: Generic Name Dose Route Start Last Admin Trade Name Freq PRN Reason Stop Dose Admin Acetaminophen 650 mg 10/19/18 23:25 10/20/18 22:58 Tylenol PO 650 mg Q4H PRN Administration Pain MILD(1-3)/Fever >100.5/REYNA Allopurinol 100 mg 10/20/18 10:00 10/21/18 10:42 Zyloprim PO 100 mg QDAY JEREMÍAS Administration Aspirin 81 mg 10/20/18 10:00 10/21/18 10:42 Halfprin Ec PO 81 mg QDAY JEREMÍAS Administration Atorvastatin Calcium 40 mg 10/20/18 18:00 10/21/18 17:21 Lipitor PO 40 mg QPM JEREMÍAS Administration Famotidine 20 mg 10/20/18 10:00 10/21/18 22:28 Pepcid IV 20 mg BID JEREMÍAS Administration Hydrochlorothiazide 25 mg 10/20/18 13:30 10/21/18 10:37 Hctz PO 12.5 mg DAILY JEREMÍAS Administration Hydromorphone HCl 0.5 mg 10/19/18 23:25 Dilaudid IV Q3H PRN Pain , Severe (7-10) Sodium Chloride 1,000 mls @ 75 mls/hr 10/19/18 23:45 10/21/18 05:03 Nacl 0.45% 1000 Ml IV 75 mls/hr DIRECT JEREMÍAS Administration Ceftriaxone Sodium 2 gm in 100 mls @ 200 mls/hr 10/20/18 10:00 10/21/18 10:48 Rocephin/Ns 2 Gm/100 Ml IV 200 mls/hr Q24HR JEREMÍAS Administration Protocol Ibuprofen 600 mg 10/19/18 23:25 10/21/18 22:29 Ibuprofen PO 600 mg Q6H PRN Administration Pain, Mild (1-3) Metoclopramide HCl 10 mg 10/19/18 23:25 Reglan IV Q6H PRN Nausea And Vomiting Metoprolol Succinate 50 mg 10/20/18 10:00 10/21/18 22:28 Toprol Xl PO 50 mg BID JEREMÍAS Administration Miscellaneous Medication 1 mg 10/20/18 10:00 10/21/18 11:26 Anastrozole [Arimidex] PO 1 mg QDAY JEREMÍAS Administration Montelukast Sodium 10 mg 10/20/18 10:00 10/21/18 10:41 Singulair PO 10 mg QDAY JEREMÍAS Administration Ondansetron HCl 4 mg 10/19/18 23:25 Zofran IV Q8H PRN Nausea And Vomiting Oxybutynin Chloride 10 mg 10/20/18 10:00 10/21/18 10:40 Ditropan Xl PO 10 mg QDAY JEREMÍAS Administration Sodium Chloride 10 ml 10/20/18 10:00 10/21/18 22:29 Sodium Chloride Flush Syringe 10 Ml IV 10 ml BID JEREMÍAS Administration Sodium Chloride 10 ml 10/19/18 23:25 10/19/18 23:50 Sodium Chloride Flush Syringe 10 Ml IV 10 ml PRN PRN Administration LINE FLUSH Valsartan 160 mg 10/20/18 22:00 10/21/18 22:28 Diovan PO 160 mg BID JEREMÍAS Administration
--- NOTE | 2018-10-22 09:00 | Progress Note ---
Assessment and Plan Cultures: Blood culture 10/19/2018 CoNS 1 of 4 bottles. 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 2) UTI: in immunocompromised host. UA 66 wbc, mod LE. Urine culture shows no marvin wth to date. 3) CoNS in blood cultures: likely contaminant. Blood culture 10/19/2018 CoNS 1 of 4 bottles. She had a new port was 05/30/2018. Repeat blood culture shows no growth to date. 4) History of Enterococcus faecalis bacteremia from port infection which was removed, discharged on 03/07/18 on Ampicillin continuous infusion until 03/18/18. She then presented with chills at oncologist office on 04/03/18, sent to [facility] ED, blood cultures were drawn and were positive for Enterococus faecalis, readmitted. TTE / BRIANA showed no vegetation. Discharged again on Ampicillin 12gms continuous infusion for 3 weeks until 04/29/18. 5) Thrombocytopenia: from chemo Recommendations: continue ceftriaxone 1 gm IV qday, D3 follow-up repeat blood culture follow-up renal US if clinically better ok to d/c home on Levaquin 750 mg po qday total 7 days ending 10-26-18. CMV DNA PCR ordered - result to be sent to [place] follow-up ID office in 2 weeks (sent to production scheduler) ID is signing off, please call for questions [facility] M: [phone] O:[phone] Subjective Date of service: 10/22/18 Interval history: Patient seen an examined. No generalized pain or weakness reported. No Fevers. Sister at bedside. Objective - Exam Narrative Exam: General appearance: Awake. Alert. No acute distress Eyes: anicteric sclerae, moist conjunctivae; no lid-lag; PERRLA HENT: Atraumatic; oropharynx clear with moist mucous membranes and no mucosal ulcerations/no oral thrush; normal hard and soft palate. Lungs: CTA, with normal respiratory effort and no intercostal retractions, left sided port no erythema CV: RRR no murmur Abdomen: Soft, non-tender; no masses or hepatosplenomegaly Extremities: +gasper leg edema, no cyanosis Skin: No rash. Psych: Appropriate affect, alert and oriented to person, place and time. Neuro: alert and oriented x 3. Moving all extremities - Constitutional Vitals: Vital Signs Temp Pulse Resp BP Pulse Ox 97.9 F 60 20 152/113 97 10/22/18 07:54 10/22/18 07:54 10/22/18 08:20 10/22/18 07:54 10/22/18 08:20 Temperature -Last 24 Hours Temperature 97.9 F Temperature 98.3 F Temperature 98.3 F Temperature 97.8 F - Labs CBC & Chem 7: 10/20/18 02:39 10/20/18 02:39
[2018-10-22] MEDS: TOPROL XL PO SCH ×2 (10:01→23:42)
[2018-10-22] MEDS: DIOVAN PO SCH ×2 (10:02→23:43)
[2018-10-22] MEDS: SINGULAIR PO SCH (10:02)
[2018-10-22] MEDS: DITROPAN XL PO SCH (10:02)
[2018-10-22] MEDS: ZYLOPRIM PO SCH (10:02)
[2018-10-22] MEDS: HCTZ PO SCH (10:03)
[2018-10-22] MEDS: PEPCID PO SCH ×2 (10:03→23:43)
[2018-10-22] MEDS: NON-FORMULARY (Anastrozole [Arimidex] 1 MG) PO SCH (10:03)
[2018-10-22] MEDS: HALFPRIN EC PO SCH (10:03)
[2018-10-22] MEDS: ROCEPHIN/NS 2 GM/100 ML 2 GM/100 ML BAG IV SCH (10:04)
[2018-10-22] MEDS: SODIUM CHLORIDE FLUSH SYRINGE 10 ML IV SCH (10:04)
[2018-10-22] MEDS ORDERED: NACL 0.9% 500 ML 500 ML IV NR (11:30)
[2018-10-22] MEDS ORDERED: D50W (25GM) Syringe IV PRN (12:00)
[2018-10-22] MEDS: HumaLOG SUB-Q SCH ×3 (12:35→23:41)
--- NOTE | 2018-10-22 16:31 | Ultrasound Report ---
ULTRASOUND RENAL INDICATION: evaluate for hydro, pyelo, mas COMPARISON: No relevant prior imaging study available. FINDINGS: RIGHT KIDNEY: Size: 12.1 cm. Echogenicity: Normal. Cortical thickness: Normal. Stones: No definite. Hydronephrosis: None. Cyst or mass: The upper pole there appear to be 2 adjacent small cysts with the complex measuring up to 3.3 cm.. LEFT KIDNEY: Size: 11.5 cm. Echogenicity: Normal. Cortical thickness: Normal. Stones: Possible small calculus measuring 6 mm is seen in the midportion though without definite shad owing.. Hydronephrosis: None. Cyst or mass: None. Urinary Bladder: No significant abnormality. Free Fluid: None. Additional Findings: None. IMPRESSION: No acute sonographic abnormality of the kidneys. Possible mild left nephrolithiasis. Prob able small right renal cysts. Signer Name: Mich Mace MD Signed: 10/22/2018 4:27 PM Workstation Name: [id number]
--- NOTE | 2018-10-22 16:39 | Progress Note ---
Assessment and Plan - Patient Problems (1) Sepsis Current Visit: Yes Status: Acute Qualifiers: Sepsis type: sepsis due to unspecified organism Qualified Code(s): A41.9 - Sepsis, unspecified organism Plan to address problem: Check blood cultures IV Rocephin for now Lactic acid high (2) Acute encephalopathy Current Visit: Yes Status: Acute Plan to address problem: Secondary to UTI and sepsis IV fluids and IV antibiotics for now (3) Urinary tract infection Current Visit: Yes Status: Acute Qualifiers: Urinary tract infection type: acute cystitis Plan to address problem: IV Rocephin for now pending cultures (4) Diabetes mellitus Current Visit: Yes Status: Chronic Qualifiers: Diabetes mellitus type: type 2 Plan to address problem: Coverage for now Hold metformin (5) Hypertension Current Visit: Yes Status: Chronic Qualifiers: Hypertension type: essential hypertension Qualified Code(s): I10 - Essential (primary) hypertension Plan to address problem: Continue antihypertensives (6) Overactive bladder Current Visit: Yes Status: Chronic Plan to address problem: Continue oxybutynin (7) Hyperlipidemia Current Visit: Yes Status: Chronic Qualifiers: Hyperlipidemia type: mixed hyperlipidemia Qualified Code(s): E78.2 - Mixed hyperlipidemia Plan to address problem: Continue statins (8) VAZQUEZ (acute kidney injury) Current Visit: Yes Status: Acute Plan to address problem: Secondary to vasomotor nephropathy IV fluids for now Monitor BUN/creatinine (9) Breast cancer Current Visit: Yes Status: Acute Qualifiers: Laterality: unspecified laterality Plan to address problem: Continue Anastozole (10) DVT prophylaxis Current Visit: Yes Status: Acute Plan to address problem: On Lovenox and GI prophylaxis Subjective Date of service: 10/22/18 Principal diagnosis: Sepsis Interval history: Improved Objective - Constitutional Vitals: Vital Signs - 12hr 10/22/18 10/22/18 10/22/18 07:54 10:00 10:01 Temperature 97.9 F Pulse Rate 60 67 60 Respiratory 20 20 Rate Blood Pressure 152/113 152/113 O2 Sat by Pulse 97 97 Oximetry 10/22/18 10/22/18 10:02 14:17 Temperature 98.0 F Pulse Rate 60 66 Respiratory 20 Rate Blood Pressure 152/113 146/70 O2 Sat by Pulse 96 Oximetry General appearance: Present: no acute distress, well-nourished - EENT Eyes: PERRL, EOM intact ENT: hearing intact, clear oral mucosa Ears: bilateral: normal - Neck Neck: supple, normal ROM - Respiratory Respiratory effort: normal Respiratory: bilateral: CTA - Breasts Breasts: normal - Cardiovascular Rhythm: regular Heart Sounds: Present: S1 & S2. Absent: gallop, rub Extremities: pulses intact, No edema, normal color, Full ROM - Gastrointestinal General gastrointestinal: Present: soft, non-tender, non-distended, normal bowel sounds - Genitourinary Female genitourinary: normal - Integumentary Integumentary: clear, warm, dry - Musculoskeletal Musculoskeletal: 1, strength equal bilaterally - Neurologic Neurologic: moves all extremities - Psychiatric Psychiatric: memory intact, appropriate mood/affect, intact judgment & insight - Labs CBC & Chem 7: 10/23/18 12:23 10/23/18 12:23 Labs: Abnormal lab results 10/22/18 Range/Units 11:49 POC Glucose 489 H (70-105)
[2018-10-23 06:01] LABS: Basophils % (Auto) 0.4 % (0.0-1.8); Eosinophils # (Auto) 0.4 K/mm3 (0.0-0.4); Eosinophils % (Auto) 5.5 % (0.0-4.3); Hematocrit 21.3 % (30.3-42.9); Hemoglobin 7.5 gm/dl (10.1-14.3); Lymphocytes # (Auto) 2.3 K/mm3 (1.2-5.4); Lymphocytes % (Auto) 35.1 % (13.4-35.0); Mean Corpuscular HGB Conc 35 % (30-34); Mean Corpuscular Volume 100 fl (79-97); Monocytes # (Auto) 0.3 K/mm3 (0.0-0.8); Monocytes % (Auto) 4.4 % (0.0-7.3); Red Blood Count 2.13 M/mm3 (3.65-5.03); Red Cell Distribution Width 16.2 % (13.2-15.2)
[2018-10-23 06:31] LABS: Calcium 8.9 mg/dL (8.4-10.2)
[2018-10-23 06:38] LABS: Platelet Count 52 K/mm3 (140-440)
--- NOTE | 2018-10-23 07:18 | Hem/Onc Progress Note ---
Assessment and Plan 1. Breast cancer, on anastrozole, diagnosed in 2014, follows with Dr. Crum, As per Dr. Crum, the patient's breast cancer is in remission. 2. Leukemia, b cell ALL. The patient goes to [place]. This was diagnosed by bone marrow biopsy more than a year ago. The patient has received Rituxan based chemotherapy and now she is on maintenance. She had received one in May and now again in September. It appears the patient received Rituxan and vincristine. 3. The patient has thrombocytopenia. As per Dr. Crum, the patient gets cytopenia with chemotherapy and the patient will follow with Dr. Crum for same. deficiency investigation. Port present. She is being treated for urinary tract infection. 4. Anemia. deficiency Ix, most likely secondary to chemotherapy or her leukemia disorder. The patient goes to [facility] for same. 5. History of cerebrovascular accident. 6. History of diabetes. 7. History of asthma. 8. History of renal insufficiency. 9. Came with confusion. The patient is on antibiotics. 10. History of hypertension. On 10/22/2018 I had d/w dr Marj Gastelum - [place] - pt had low plt in may 2018 - in 80s option of Lumbar puncture after plt transfusion to see if there is a leukemic process However there is clinical improvement. I d/w Dr Gold, I d/w the pt and her sister, they would like not to do the procedure LP now and like to be discharged - cancel the LP - Patient Problems (1) Acute leukemia Current Visit: Yes Status: Acute Subjective Date of service: 10/23/18 Principal diagnosis: b cell ALL Interval history: more awake/ alert Objective - Exam Narrative Exam: Pain - none General appearance no acute distress Performance status limited self care Eyes - no icterus ENT no thrush LNs cervical not palpable Neck - normal ROM Respiratory Normal Breath sounds - CTA CVS S1 S2 + Extremities normal temperature General GI Soft - distended Rectal deferred female - deferred Skin warm -PORT + Musculoskeletal moving normal Neurologically no focal deficit - Constitutional Vitals: Last Vital Signs Temp 98.8 F 10/23/18 03:29 Pulse 76 10/23/18 03:29 Resp 20 10/23/18 03:29 BP 143/71 10/23/18 03:29 Pulse Ox 97 10/23/18 03:29 - Labs Lab Results: Laboratory Results - last 24 hr 10/22/18 10/22/18 10/22/18 11:48 11:49 16:45 WBC RBC Hgb Hct MCV MCH MCHC RDW Plt Count Lymph % (Auto) [place] % (Auto) Eos % (Auto) Baso % (Auto) Lymph # [place] # Eos # Baso # Seg Neutrophils % Seg Neutrophils # Sodium Potassium Chloride Carbon Dioxide Anion Gap BUN Creatinine Estimated GFR BUN/Creatinine Ratio Glucose POC Glucose 489 H 425 H Calcium Blood Type O NEGATIVE 10/22/18 10/23/18 10/23/18 22:40 05:43 05:43 WBC 6.5 RBC 2.13 L Hgb 7.5 L Hct 21.3 L MCV 100 H MCH 35 H MCHC 35 H RDW 16.2 H Plt Count 52 L Lymph % (Auto) 35.1 H [place] % (Auto) 4.4 Eos % (Auto) 5.5 H Baso % (Auto) 0.4 Lymph # 2.3 [place] # 0.3 Eos # 0.4 Baso # 0.0 Seg Neutrophils % 54.6 Seg Neutrophils # 3.6 Sodium 140 Potassium 3.8 Chloride 100.7 Carbon Dioxide 25 Anion Gap 18 BUN 21 H Creatinine 1.4 H Estimated GFR 38 BUN/Creatinine Ratio 15 Glucose 261 H POC Glucose 402 H Calcium 8.9 Blood Type Medications & Allergies - Medications Allergies/Adverse Reactions: Allergies No Known Allergies Allergy (Verified 02/14/15 14:01) Home Medications: Home Medications Medication Instructions Recorded Confirmed Last Taken Type Allopurinol [Zyloprim] 300 mg PO QDAY 12/16/14 10/19/18 10/18/18 History AtorvaSTATin [Lipitor] 40 mg PO QPM 12/16/14 10/19/18 10/18/18 History Metoprolol Xl [Metoprolol 50 mg PO BID 12/16/14 10/19/18 10/18/18 History SUCCINATE ER TAB] Oxybutynin Chloride [Oxybutynin 10 mg PO QDAY 12/16/14 10/19/18 10/18/18 History Chloride ER] Valsartan/Hydrochlorothiazide 12.5 - 160 each PO DAILY 08/31/17 10/19/18 09/29/18 History [Valsartan-Hctz 160-12.5 mg Tab] metFORMIN [Glucophage] 500 mg PO BID 08/31/17 10/19/18 10/18/18 History Anastrozole [Arimidex] 1 mg PO QDAY 10/19/18 10/19/18 10/18/18 History Aspirin [Adult Aspirin] 81 mg PO QDAY 10/19/18 10/19/18 10/18/18 History Glimepiride [Amaryl] 4 mg PO QDAY 10/19/18 10/19/18 10/18/18 History Montelukast [Singulair] 10 mg PO QDAY 10/19/18 10/19/18 10/18/18 History Active Medications: Generic Name Dose Route Start Last Admin Trade Name Freq PRN Reason Stop Dose Admin Acetaminophen 650 mg 10/19/18 23:25 10/20/18 22:58 Tylenol PO 650 mg Q4H PRN Administration Pain MILD(1-3)/Fever >100.5/REYNA Allopurinol 100 mg 10/20/18 10:00 10/22/18 10:02 Zyloprim PO 100 mg QDAY JEREMÍAS Administration Aspirin 81 mg 10/20/18 10:00 10/22/18 10:03 Halfprin Ec PO 81 mg QDAY JEREMÍAS Administration Atorvastatin Calcium 40 mg 10/20/18 18:00 10/22/18 17:30 Lipitor PO 40 mg QPM JEREMÍAS Administration Dextrose 50 ml 10/22/18 12:00 D50w (25gm) Syringe IV PRN PRN Hypoglycemia Famotidine 20 mg 10/22/18 10:00 10/22/18 23:43 Pepcid PO 20 mg BID JEREMÍAS Administration Hydrochlorothiazide 25 mg 10/20/18 13:30 10/22/18 10:03 Hctz PO 25 mg DAILY JEREMÍAS Administration Hydromorphone HCl 0.5 mg 10/19/18 23:25 Dilaudid IV Q3H PRN Pain , Severe (7-10) Sodium Chloride 1,000 mls @ 75 mls/hr 10/19/18 23:45 10/21/18 05:03 Nacl 0.45% 1000 Ml IV 75 mls/hr DIRECT JEREMÍAS Administration Ceftriaxone Sodium 2 gm in 100 mls @ 200 mls/hr 10/20/18 10:00 10/22/18 10:04 Rocephin/Ns 2 Gm/100 Ml IV 200 mls/hr Q24HR JEREMÍAS Administration Protocol Ibuprofen 600 mg 10/19/18 23:25 10/21/18 22:29 Ibuprofen PO 600 mg Q6H PRN Administration Pain, Mild (1-3) Insulin Human Lispro 0 unit 10/22/18 12:00 10/22/18 23:41 Humalog SUB-Q 8 unit ACHS JEREMÍAS Administration Protocol Metoclopramide HCl 10 mg 10/19/18 23:25 Reglan IV Q6H PRN Nausea And Vomiting Metoprolol Succinate 50 mg 10/20/18 10:00 10/22/18 23:42 Toprol Xl PO 50 mg BID JEREMÍAS Administration Miscellaneous Medication 1 mg 10/20/18 10:00 10/22/18 10:03 Anastrozole [Arimidex] PO 1 mg QDAY JEREMÍAS Administration Montelukast Sodium 10 mg 10/20/18 10:00 10/22/18 10:02 Singulair PO 10 mg QDAY JEREMÍAS Administration Ondansetron HCl 4 mg 10/19/18 23:25 Zofran IV Q8H PRN Nausea And Vomiting Oxybutynin Chloride 10 mg 10/20/18 10:00 10/22/18 10:02 Ditropan Xl PO 10 mg QDAY JEREMÍAS Administration Sodium Chloride 10 ml 10/20/18 10:00 10/22/18 10:04 Sodium Chloride Flush Syringe 10 Ml IV 10 ml BID JEREMÍAS Administration Sodium Chloride 10 ml 10/19/18 23:25 10/19/18 23:50 Sodium Chloride Flush Syringe 10 Ml IV 10 ml PRN PRN Administration LINE FLUSH Valsartan 160 mg 10/20/18 22:00 10/22/18 23:43 Diovan PO 160 mg BID JEREMÍAS Administration
[2018-10-23] MEDS: HumaLOG SUB-Q SCH ×4 (08:54→23:21)
[2018-10-23] MEDS: ROCEPHIN/NS 2 GM/100 ML 2 GM/100 ML BAG IV SCH (10:17)
[2018-10-23] MEDS: NON-FORMULARY (Anastrozole [Arimidex] 1 MG) PO SCH (10:17)
[2018-10-23] MEDS: HALFPRIN EC PO SCH (10:18)
[2018-10-23] MEDS: ZYLOPRIM PO SCH (10:18)
[2018-10-23] MEDS: DIOVAN PO SCH ×2 (10:18→23:24)
[2018-10-23] MEDS: DITROPAN XL PO SCH (10:18)
[2018-10-23] MEDS: TOPROL XL PO SCH ×2 (10:18→23:23)
[2018-10-23] MEDS: PEPCID PO SCH ×2 (10:18→23:23)
[2018-10-23] MEDS: HCTZ PO SCH (10:18)
[2018-10-23] MEDS: SODIUM CHLORIDE FLUSH SYRINGE 10 ML IV SCH ×2 (10:19→23:23)
[2018-10-23] MEDS: SINGULAIR PO SCH (10:19)
[2018-10-23 12:58] LABS: Basophils % (Auto) 0.3 % (0.0-1.8); Eosinophils # (Auto) 0.4 K/mm3 (0.0-0.4); Eosinophils % (Auto) 5.9 % (0.0-4.3); Hematocrit 21.9 % (30.3-42.9); Hemoglobin 7.9 gm/dl (10.1-14.3); Lymphocytes # (Auto) 2.4 K/mm3 (1.2-5.4); Lymphocytes % (Auto) 35.3 % (13.4-35.0); Mean Corpuscular HGB Conc 36 % (30-34); Mean Corpuscular Volume 100 fl (79-97); Monocytes # (Auto) 0.3 K/mm3 (0.0-0.8); Red Cell Distribution Width 16.1 % (13.2-15.2)
[2018-10-23 13:08] LABS: INR 1.15 (0.87-1.13); Partial Thromboplastin Time 27.6 Sec. (24.2-36.6); Platelet Count 55 K/mm3 (140-440)
[2018-10-23 13:24] LABS: Albumin 3.4 g/dL (3.9-5); Calcium 9.1 mg/dL (8.4-10.2)
[2018-10-23] MEDS: IBUPROFEN PO PRN (15:47)
[2018-10-23] MEDS ORDERED: NACL 0.9% 500 ML 500 ML IV ONE (17:03)
[2018-10-24] MEDS: IBUPROFEN PO PRN ×2 (01:44→15:03)
--- NOTE | 2018-10-24 07:55 | Hem/Onc Progress Note ---
Assessment and Plan 1. Breast cancer, on anastrozole, diagnosed in 2014, follows with Dr. Crum, As per Dr. Curm, the patient's breast cancer is in remission. 2. Leukemia, b cell ALL. The patient goes to [place]. This was diagnosed by bone marrow biopsy more than a year ago. The patient has received Rituxan based chemotherapy and now she is on maintenance. She had received one in May and now again in September. It appears the patient received Rituxan and vincristine. 3. The patient has thrombocytopenia. As per Dr. Crum, the patient gets cytopenia with chemotherapy and the patient will follow with Dr. Crum for same. deficiency investigation. Port present. She is being treated for urinary tract infection. 4. Anemia. deficiency Ix, most likely secondary to chemotherapy or her leukemia disorder. The patient goes to [place] for same. 5. History of cerebrovascular accident. 6. History of diabetes. 7. History of asthma. 8. History of renal insufficiency. 9. Came with confusion. The patient is on antibiotics. 10. History of hypertension. In past - I had d/w dr Marj Gastelum - [place] - pt had low plt in may 2018 - in 80s option of Lumbar puncture after plt transfusion to see if there is a leukemic process However there is clinical improvement. I had d/w Dr Gold, I d/w the pt and her sister, they would like not to do the procedure LP now and like to be discharged - cancel the LP OP follow up with Dr Crum - Patient Problems (1) Acute leukemia Status: Acute Subjective Date of service: 10/24/18 Principal diagnosis: B - ALL Interval history: feeling better Objective - Exam Narrative Exam: Pain - none General appearance no acute distress Performance status limited self care Eyes - no icterus ENT no thrush LNs cervical not palpable Neck - normal ROM Respiratory Normal Breath sounds - CTA CVS S1 S2 + Extremities normal temperature General GI Soft - distended Rectal deferred female - deferred Skin warm -PORT + Musculoskeletal moving normal Neurologically no focal deficit - Constitutional Vitals: Last Vital Signs Temp 97.7 F 10/24/18 03:47 Pulse 59 L 10/24/18 03:47 Resp 18 10/24/18 03:47 BP 128/59 10/24/18 03:47 Pulse Ox 99 10/24/18 03:47 - Labs Lab Results: Laboratory Results - last 24 hr 10/23/18 10/23/18 10/23/18 11:37 12:23 12:23 WBC 6.8 RBC 2.20 L Hgb 7.9 L Hct 21.9 L MCV 100 H MCH 36 H MCHC 36 H RDW 16.1 H Plt Count 55 L Lymph % (Auto) 35.3 H [place] % (Auto) 5.0 Eos % (Auto) 5.9 H Baso % (Auto) 0.3 Lymph # 2.4 [place] # 0.3 Eos # 0.4 Baso # 0.0 Seg Neutrophils % 53.5 Seg Neutrophils # 3.7 PT 14.4 INR 1.15 H APTT 27.6 Sodium Potassium Chloride Carbon Dioxide Anion Gap BUN Creatinine Estimated GFR BUN/Creatinine Ratio Glucose POC Glucose 328 H Calcium Total Bilirubin AST ALT Alkaline Phosphatase Total Protein Albumin Albumin/Globulin Ratio Blood Type Antibody Screen Crossmatch 10/23/18 10/23/18 10/23/18 12:23 16:30 18:24 WBC RBC Hgb Hct MCV MCH MCHC RDW Plt Count Lymph % (Auto) [place] % (Auto) Eos % (Auto) Baso % (Auto) Lymph # [place] # Eos # Baso # Seg Neutrophils % Seg Neutrophils # PT INR APTT Sodium 138 Potassium 3.8 Chloride 99.7 Carbon Dioxide 25 Anion Gap 17 BUN 21 H Creatinine 1.3 H Estimated GFR 41 BUN/Creatinine Ratio 16 Glucose 298 H POC Glucose 354 H Calcium 9.1 Total Bilirubin 0.40 AST 16 ALT 12 Alkaline Phosphatase 99 Total Protein 5.9 L Albumin 3.4 L Albumin/Globulin Ratio 1.4 Blood Type O NEGATIVE Antibody Screen Negative Crossmatch See Detail 10/23/18 22:03 WBC RBC Hgb Hct MCV MCH MCHC RDW Plt Count Lymph % (Auto) [place] % (Auto) Eos % (Auto) Baso % (Auto) Lymph # [place] # Eos # Baso # Seg Neutrophils % Seg Neutrophils # PT INR APTT Sodium Potassium Chloride Carbon Dioxide Anion Gap BUN Creatinine Estimated GFR BUN/Creatinine Ratio Glucose POC Glucose 353 H Calcium Total Bilirubin AST ALT Alkaline Phosphatase Total Protein Albumin Albumin/Globulin Ratio Blood Type Antibody Screen Crossmatch Medications & Allergies - Medications Allergies/Adverse Reactions: Allergies No Known Allergies Allergy (Verified 02/14/15 14:01) Home Medications: Home Medications Medication Instructions Recorded Confirmed Last Taken Type Allopurinol [Zyloprim] 300 mg PO QDAY 12/16/14 10/19/18 10/18/18 History Metoprolol Xl [Metoprolol 50 mg PO BID 12/16/14 10/19/18 10/18/18 History SUCCINATE ER TAB] Oxybutynin Chloride [Oxybutynin 10 mg PO QDAY 12/16/14 10/19/18 10/18/18 History Chloride ER] Valsartan/Hydrochlorothiazide 12.5 - 160 each PO DAILY 08/31/17 10/19/18 09/29/18 History [Valsartan-Hctz 160-12.5 mg Tab] Anastrozole [Arimidex] 1 mg PO QDAY 10/19/18 10/19/18 10/18/18 History Glimepiride [Amaryl] 4 mg PO QDAY 10/19/18 10/19/18 10/18/18 History Montelukast [Singulair] 10 mg PO QDAY 10/19/18 10/19/18 10/18/18 History Anastrozole [Arimidex] 1 mg PO QDAY 10/24/18 Unknown Rx Aspirin EC 81 mg PO QDAY tablet 10/24/18 Unknown Rx Famotidine [Pepcid] 20 mg PO BID tablet 10/24/18 Unknown Rx Metoprolol Xl [Metoprolol 50 mg PO BID tablet 10/24/18 Unknown Rx SUCCINATE ER TAB] Montelukast [Singulair] 10 mg PO QDAY tablet 10/24/18 Unknown Rx Oxybutynin Xl [Ditropan Xl] 10 mg PO QDAY tablet 10/24/18 Unknown Rx Oxycodone HCl/Acetaminophen 1 each PO Q6HR PRN #20 tablet 10/24/18 Unknown Rx [Percocet 7.5/325 mg] Active Medications: Generic Name Dose Route Start Last Admin Trade Name Freq PRN Reason Stop Dose Admin Acetaminophen 650 mg 10/19/18 23:25 10/20/18 22:58 Tylenol PO 650 mg Q4H PRN Administration Pain MILD(1-3)/Fever >100.5/REYNA Allopurinol 100 mg 10/20/18 10:00 10/23/18 10:18 Zyloprim PO 100 mg QDAY JEREMÍAS Administration Aspirin 81 mg 10/20/18 10:00 10/23/18 10:18 Halfprin Ec PO 81 mg QDAY JEREMÍAS Administration Atorvastatin Calcium 40 mg 10/20/18 18:00 10/23/18 18:26 Lipitor PO 40 mg QPM JEREMÍAS Administration Dextrose 50 ml 10/22/18 12:00 D50w (25gm) Syringe IV PRN PRN Hypoglycemia Famotidine 20 mg 10/22/18 10:00 10/23/18 23:23 Pepcid PO 20 mg BID JEREMÍAS Administration Hydrochlorothiazide 25 mg 10/20/18 13:30 10/23/18 10:18 Hctz PO 25 mg DAILY JEREMÍAS Administration Hydromorphone HCl 0.5 mg 10/19/18 23:25 Dilaudid IV Q3H PRN Pain , Severe (7-10) Sodium Chloride 1,000 mls @ 75 mls/hr 10/19/18 23:45 10/21/18 05:03 Nacl 0.45% 1000 Ml IV 75 mls/hr DIRECT JEREMÍAS Administration Ceftriaxone Sodium 2 gm in 100 mls @ 200 mls/hr 10/20/18 10:00 10/23/18 10:47 Rocephin/Ns 2 Gm/100 Ml IV 10/26/18 10:29 Infused Q24HR JEREMÍAS Infusion Protocol Ibuprofen 600 mg 10/19/18 23:25 10/24/18 01:44 Ibuprofen PO 600 mg Q6H PRN Administration Pain, Mild (1-3) Insulin Human Lispro 0 unit 10/22/18 12:00 10/23/18 23:21 Humalog SUB-Q 10 unit ACHS JEREMÍAS Administration Protocol Metoclopramide HCl 10 mg 10/19/18 23:25 Reglan IV Q6H PRN Nausea And Vomiting Metoprolol Succinate 50 mg 10/20/18 10:00 10/23/18 23:23 Toprol Xl PO 50 mg BID JEREMÍAS Administration Miscellaneous Medication 1 mg 10/20/18 10:00 10/23/18 10:17 Anastrozole [Arimidex] PO 1 mg QDAY JEREMÍAS Administration Montelukast Sodium 10 mg 10/20/18 10:00 10/23/18 10:19 Singulair PO 10 mg QDAY JEREMÍAS Administration Ondansetron HCl 4 mg 10/19/18 23:25 Zofran IV Q8H PRN Nausea And Vomiting Oxybutynin Chloride 10 mg 10/20/18 10:00 10/23/18 10:18 Ditropan Xl PO 10 mg QDAY JEREMÍAS Administration Sodium Chloride 10 ml 10/20/18 10:00 10/23/18 23:23 Sodium Chloride Flush Syringe 10 Ml IV 10 ml BID JEREMÍAS Administration Sodium Chloride 10 ml 10/19/18 23:25 10/19/18 23:50 Sodium Chloride Flush Syringe 10 Ml IV 10 ml PRN PRN Administration LINE FLUSH Valsartan 160 mg 10/20/18 22:00 10/23/18 23:24 Diovan PO 160 mg BID JEREMÍAS Administration
[2018-10-24 08:33] VITALS: BP 118/48
[2018-10-24] MEDS: ROCEPHIN/NS 2 GM/100 ML 2 GM/100 ML BAG IV SCH ×2 (08:57→10:00)
[2018-10-24] MEDS: HumaLOG SUB-Q SCH ×2 (08:57→12:38)
[2018-10-24] MEDS: HALFPRIN EC PO SCH (08:59)
[2018-10-24] MEDS: DIOVAN PO SCH (08:59)
[2018-10-24] MEDS: TOPROL XL PO SCH ×2 (08:59→10:00)
[2018-10-24] MEDS: SODIUM CHLORIDE FLUSH SYRINGE 10 ML IV SCH (09:00)
[2018-10-24] MEDS: NON-FORMULARY (Anastrozole [Arimidex] 1 MG) PO SCH (09:00)
[2018-10-24] MEDS: PEPCID PO SCH (09:00)
[2018-10-24] MEDS: ZYLOPRIM PO SCH (09:01)
[2018-10-24] MEDS: SINGULAIR PO SCH (09:01)
[2018-10-24] MEDS: DITROPAN XL PO SCH (09:01)
[2018-10-24] MEDS: HCTZ PO SCH (09:01)
--- NOTE | 2018-10-24 15:19 | Discharge Summary ---
Providers - Providers Date of Admission: 10/19/18 15:41 Date of discharge: 10/24/18 Attending physician: TADEO GOLDMAN 10/19/18 19:27 Consult to Dietitian/Nutrition [CONS] Routine Physician Instructions: Reason For Exam: Reason for Consult: Decreased appetite 10/19/18 23:25 Consult to Physician [CONS] Routine Comment: Consulting Provider: BRISA SHEETS Physician Instructions: Reason For Exam: breast cancer and leukemia 10/20/18 08:34 Consult to Wound/ET Nurse [CONS] Routine Reason For Exam: wound eval groin area 10/20/18 09:19 Physical Therapy Evaluation and Treat [CONS] Routine Comment: Reason For Exam: Weakness 10/20/18 09:31 Consult to Physician [CONS] Routine Comment: Consulting Provider: AXEL STRANGE Physician Instructions: Reason For Exam: bacteremia 10/21/18 09:15 Consult to Physician [CONS] Routine Comment: Consulting Provider: AXEL STRANGE Physician Instructions: Reason For Exam: MRSE bacteremia 10/22/18 11:17 Consult to Physician [CONS] Routine Comment: coordinate/CONSULT WAS CALLED TO . Consulting Provider: DAREK MITCHELL Physician Instructions: plt 44 - I ordered plt transfusion - need to coord Reason For Exam: h/o b cell ALL - [place] Primary care physician: DANIELLE RAMIREZ Hospitalization Condition: Fair Hospital course: (1) Sepsis Current Visit: Yes Status: Acute Qualifiers: Sepsis type: sepsis due to unspecified organism Qualified Code(s): A41.9 - Sepsis, unspecified organism Plan to address problem: Improved (2) Acute encephalopathy Current Visit: Yes Status: Acute Plan to address problem: Improved (3) Urinary tract infection Current Visit: Yes Status: Acute Qualifiers: Urinary tract infection type: acute cystitis Plan to address problem: Abx course finished (4) Diabetes mellitus Current Visit: Yes Status: Chronic Qualifiers: Diabetes mellitus type: type 2 Plan to address problem: (5) Hypertension Current Visit: Yes Status: Chronic Qualifiers: Hypertension type: essential hypertension Qualified Code(s): I10 - Essential (primary) hypertension Plan to address problem: Continue antihypertensives (6) Overactive bladder Current Visit: Yes Status: Chronic Plan to address problem: Continue oxybutynin (7) Hyperlipidemia Current Visit: Yes Status: Chronic Qualifiers: Hyperlipidemia type: mixed hyperlipidemia Qualified Code(s): E78.2 - Mixed hyperlipidemia Plan to address problem: Continue statins (8) VAZQUEZ (acute kidney injury) Current Visit: Yes Status: Acute Plan to address problem: Secondary to vasomotor nephropathy IV fluids for now Monitor BUN/creatinine (9) Breast cancer Current Visit: Yes Status: Acute Qualifiers: Laterality: unspecified laterality Plan to address problem: Continue Anastozole diagnosed in 2014, follows with Dr. Crum, As per Dr. Crum, the patient's breast cancer is in remission. 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 This was diagnosed by bone marrow biopsy more than a year ago. The patient has received Rituxan based chemotherapy and now she is on maintenance. She had received one in May and now again in September. It appears the patient received Rituxan and vincristine. 11. Thrombocytopenia. As per Dr. Crum, the patient gets cytopenia with chemotherapy and the patient will follow with Dr. Crum for same. 11 Anemia. deficiency Ix, most likely secondary to chemotherapy or her leukemia disorder. The patient goes to [place] for same. H/h 7.9/21.9 Disposition: DC-01 TO HOME OR SELFCARE Core Measure Documentation - Palliative Care Palliative Care/ Comfort Measures: Not Applicable - Core Measures Any of the following diagnoses?: none Exam - Constitutional Vitals: Temp Pulse Resp BP Pulse Ox 99.2 F 58 L 20 118/48 95 10/24/18 07:16 10/24/18 07:16 10/24/18 07:16 10/24/18 07:16 10/24/18 07:16 General appearance: Present: no acute distress, well-nourished - EENT Eyes: Present: PERRL ENT: hearing intact, clear oral mucosa - Neck Neck: Present: supple, normal ROM - Respiratory Respiratory effort: normal Respiratory: bilateral: CTA - Cardiovascular Heart Sounds: Present: S1 & S2. Absent: rub, click - Extremities Extremities: pulses symmetrical, No edema Peripheral Pulses: within normal limits - Abdominal General gastrointestinal: Present: soft, non-tender, non-distended, normal bowel sounds Female genitourinary: Present: normal - Integumentary Integumentary: Present: clear, warm, dry - Musculoskeletal Musculoskeletal: gait normal, strength equal bilaterally - Psychiatric Psychiatric: appropriate mood/affect, intact judgment & insight - Neurologic Neurologic: CNII-XII intact, moves all extremities Plan Follow up with: DANIELLE RAMIREZ MD [Primary Care Provider] - 3-5 Days
== END 2018-10-24 16:05 | disposition home health service (06) | DRG 871 ==
LOC: ED 11:34 → 2B-ACE 15:41
PROVIDERS: ADMIT Internal Medicine; ATTEND Internal Medicine
PROC: 30233R1 Transfusion of Nonautologous Platelets into Peripheral Vein, Percutaneous Approach (ICD-10-PCS; principal; 2018-10-23)
DX: A41.9 Sepsis, unspecified organism (principal); N17.0 Acute kidney failure with tubular necrosis; G93.40 Encephalopathy, unspecified; N30.00 Acute cystitis without hematuria; C91.00 Acute lymphoblastic leukemia not having achieved remission; D69.6 Thrombocytopenia, unspecified; N32.81 Overactive bladder; E78.2 Mixed hyperlipidemia; D64.81 Anemia due to antineoplastic chemotherapy; K21.9 Gastro-esophageal reflux disease without esophagitis; N18.3 Chronic kidney disease, stage 3 (moderate); E11.22 Type 2 diabetes mellitus with diabetic chronic kidney disease; I12.9 Hypertensive chronic kidney disease with stage 1 through stage 4 chronic kidney disease, or unspecified chronic kidney disease; E83.42 Hypomagnesemia; M19.90 Unspecified osteoarthritis, unspecified site; Z90.49 Acquired absence of other specified parts of digestive tract; Z82.49 Family history of ischemic heart disease and other diseases of the circulatory system; Z85.3 Personal history of malignant neoplasm of breast; Z86.73 Personal history of transient ischemic attack (TIA), and cerebral infarction without residual deficits; Z79.899 Other long term (current) drug therapy; Z79.82 Long term (current) use of aspirin
CPT/HCPCS: 36415; 70450; 71045; 76770; 80048; 80053; 80320; 81001; 82140; 82550; 82607; 82728; 82747; 82962; 83036; 83550; 83735; 84443; 85025; 85610; 85730; 86850; 86900; 86901; 86920; 87040; 87086; 87116; 87497; 93005; 93010; 96361; 96365; 96375; G0378; A9270-GY; G0480; J0696; J1170; J1815; J3475; J7030; J7040; P9016; P9035